=== PATIENT | female | born 1945 | race Caucasian/White ===

== ENCOUNTER 2017-11-02 17:56 | Inpatient (IN) | payer MEDICARE, SELFPAY ==
[2017-11-02 18:15] VITALS: BP 103/77; PULSE 119; RESP 20; TEMP 36.4; O2SAT 97; BMI 28.5
[2017-11-02 18:22] VITALS: BP 103/77; PULSE 111; O2SAT 98
--- NOTE | 2017-11-02 18:44 | DI.RAD.S_ITS ---
PROCEDURE: XR CHEST 1V INDICATIONS: chest pain, shortness of breath TECHNIQUE: One view of the chest was acquired. COMPARISON: [facility], CR, XR CHEST 1 VIEW, 08/10/2017, 17:53. [facility], CT, CT ANGIO CHEST PE, 08/10/2017, 19:43. [facility], CR, CHEST 1 VIEW, 01/13/2016, 21:17. FINDINGS: Surgical changes and devices: None. Lungs and pleura: Right medial basilar opacity maybe infiltrate or atelectasis. Loculated pleural effusion or pleural thickening in the right hemithorax. No pneumothorax. Mediastinum: Mediastinal contours appear normal. Heart size is normal. Bones and chest wall: No suspicious bony lesions. Overlying soft tissues appear unremarkable. IMPRESSION: Right basilar infiltrate or atelectasis. There is loculated pleural effusion or pleural thickening on the right. Dictated by: Bennie Lucas M.D. on 11/02/2017 at 19:44 Approved by: Bennie Lucas M.D. on 11/02/2017 at 19:47
[2017-11-02] MEDS: ASPIRIN 81 MG TAB 324 MG PO (19:07)
[2017-11-02] MEDS: SODIUM CHLORIDE 0.9% 1,000 ML 150 ML IV (19:07)
[2017-11-02 19:17] LABS: Add Manual Diff / Slide Review NO; Basophils Percent Auto 0.6 % (0-2); Hematocrit 39.8 % (36-46); Hemoglobin 13.7 g/dL (12.0-16.0); Lymphocytes Percent Auto 5.4 % (25-40); Mean Corpuscular HGB Conc 34.4 % (30-36); Mean Corpuscular Hemoglobin 32.9 PG (26-34); Mean Corpuscular Volume 95.6 fL (80-100); Monocytes Percent Auto 5.7 % (3-14); Neutrophils Absolute Auto 14800 /uL (3000-5900); Neutrophils Percent Auto 88.3 % (50-75); Platelet Count 144 X10^3/uL (150-400); Red Blood Cell Count 4.16 X10^6/uL (4.0-5.2); Red Cell Distribution Width 16.1 % (11.6-14.8); White Blood Cell Count 16.7 X10^3/uL (4.5-11.0)
[2017-11-02 19:33] LABS: Alanine Aminotransferase 169 IU/L (9-52); Albumin 3.7 g/dL (3.5-5.0); Albumin Globulin Ratio 1.5 (1.0-2.8); Alkaline Phosphatase 203 U/L (38-126); Aspartate Aminotransferase 142 IU/L (14-36); BUN Creatinine Ratio 33.3 (6-22); Bilirubin Total 0.8 mg/dL (0.2-1.3); Blood Urea Nitrogen 30 mg/dL (7-17); Calcium 9.4 mg/dL (8.4-10.2); Carbon Dioxide 21 mmol/L (22-32); Chloride 100 mmol/L (98-107); Creatine Kinase < 20 U/L (30-135); Estimated Glomerular Filt Rate > 60.0 mL/min (>60); Globulin 2.5 g/dL (1.7-4.1); Glucose 332 mg/dL (80-110); HEMOLYSIS 38 (0-50); Lipase 109 U/L (23-300); Potassium 4.8 mmol/L (3.4-5.1); Sodium 137 mmol/L (137-145); Total Protein 6.2 g/dL (6.3-8.2)
[2017-11-02 19:45] LABS: Troponin I 0.022 ng/mL (0.01-0.034)
[2017-11-02 19:54] VITALS: PULSE 92; RESP 25; O2SAT 98
[2017-11-02 20:26] VITALS: PULSE 78; RESP 24
--- NOTE | 2017-11-02 20:37 | ED_ITS ---
HPI - Chest Pain General Chief Complaint: Chest Pain Stated Complaint: Chest pain Time Seen by Provider: 11/02/17 18:08 Source: patient Mode of arrival: ambulatory Limitations: no limitations History of Present Illness HPI narrative: Patient has had chest tightness and weakness for the last several days. Patient's family states that she cannot get up off the toilet and she is difficult to move around, because she is so weak. Patient has a history of COPD. She and her live in a motor home that [facility], but they do have a history in [facility]. Patient states her primary care physician is there which she has not seen him in a long time. Patient denies fevers. She has had a cough. states the patient has been declining for about a month prior to the current symptoms. MD complaint: other (Chest tightness, weakness.) Onset (ago): day(s) Duration: constant Onset: other (Worse with physical effort.) Pain location: other (Entire chest) Severity: moderate Severity scale (1-10): 3 Quality: tightness Pain radiation: none Relieving factors: nothing Exacerbating factors: nothing Context: other (Progressive debility) Associated symptoms: other (No nausea, vomiting, diaphoresis, syncope, palpitations, fever, or leg swelling. Patient has chronic dyspnea, and has had a dry cough recently.) Treatments prior to arrival chest pain: none Related Data Home Medications Medication Instructions Recorded Confirmed albuterol sulfate [ProAir HFA] 1 puff INHALATION Q4-6H PRN 11/03/17 11/03/17 prednisone 5 mg PO BEDTIME 11/03/17 11/03/17 prednisone 15 mg PO BID 11/03/17 11/03/17 Previous Rx's Medication Instructions Recorded albuterol sulfate 3 ml INH Q4HP PRN #30 01/15/16 insulin aspart U-100 [Novolog 0 unit SUBCUT AC #1 device 11/07/17 Flexpen U-100 Insulin] insulin glargine [Lantus Solostar 15 unit SUBCUT BEDTIME #1 device 11/07/17 U-100 Insulin] Allergies Allergy/AdvReac Type Severity Reaction Status Date / Time avocado [AVOCADO] Allergy Intermediate VOMITING Verified 11/02/17 18:26 Penicillins [PENICILLINS] Allergy Intermediate RASH Verified 11/02/17 18:26 Sulfa (Sulfonamide Allergy Intermediate FEELING Verified 11/02/17 18:26 Antibiotics) HOT-SWEATING [SULFA (SULFONAMIDE TO ANTIBIOTICS)] FREEZING COL Review of Systems Review of Systems All systems reviewed & are unremarkable except as noted in HPI and below Constitutional Denies chills, Denies fever(s), Denies lethargy and Reports weakness Eyes Denies change in vision, Denies eye discharge, Denies irritation and Denies loss of vision ENT Ears, Nose, Mouth, and Throat: Denies change in voice, Denies neck pain and Denies sore throat Cardiovascular Denies chest pain, Denies irregular heart rhythm, Denies lightheadedness, Denies palpitations, Reports dyspnea, Denies dyspnea on exertion and Denies orthopnea Respiratory Reports cough, Reports dyspnea, Denies dyspnea on exertion and Denies wheezing Gastrointestinal Gastrointestinal: Denies abdominal pain, Denies change in bowel habits, Denies diarrhea, Denies nausea and Denies vomiting Genitourinary Denies hematuria, Denies flank pain, Denies urinary incontinence and Denies urinary urgency Musculoskeletal Denies neck pain Integumentary/Breasts Denies pruritus, Denies erythema, Denies rash and Denies wounds Neurologic Denies confusion, Denies loss of vision and Reports weakness Psychiatric Denies anxiety, Denies confusion, Denies depression, Denies homicidal ideation and Denies suicidal ideation Endocrine Denies palpitations Hematologic/Lymphatic Denies easy bruising Allergic/Immunologic Denies wheezing FORMERLY [facility], [facility] Medical History Acute and chronic respiratory failure (Acute) Generalized weakness (Acute) Pneumonia (Acute) COPD (chronic obstructive pulmonary disease) (Acute) Surgical History No pertinent past surgical history (Acute) Social History household members: spouse Smoking Status: Current every day smoker Exam Initial Vital Signs Initial Vital Signs: Vital Signs Temperature 97.6 F 11/02/17 18:15 Pulse Rate 119 H 11/02/17 18:15 Respiratory Rate 20 11/02/17 18:15 Blood Pressure 103/77 11/02/17 18:15 Pulse Oximetry 97 11/02/17 18:15 Const General: cooperative and well developed Nutritional Appearance: well nourished Orientation: alert, awake, oriented x3 and not confused Other: Patient appears generally weak, lying on the bed. [facility] Head: normocephalic and atraumatic Ears: external ears normal and TM's normal bilaterally Nose: external nose normal and No nasal discharge Face and sinus: sinuses nontender, face symmetric, no sinus tenderness and No dry mucous membranes Mouth: oral mucosae normal and moist mucous membranes Teeth and gingiva: dentition normal Throat: tonsils normal and uvula midline Eyes General: appearance normal, both eyes and all related structures Eyelids: eyelids normal Conjunctivae: conjunctivae normal Sclera: sclerae normal Pupils: PERRL EOM: EOM intact bilaterally Neck Neck: normal visual inspection, trachea midline, No lymphadenopathy, No midline deformity and No JVD Lymphatic: No lymphedema Chest Chest: normal inspection of the chest Resp Effort & Inspection: normal respiratory effort, able to speak in complete sentences, no respiratory distress and no use of accessory muscles Auscultation: no rales, no rhonchi and wheezes (A mild, diffuse.) Other: Decreased breath sounds and air movement bilaterally. Cardio Rate: regular rate Rhythm: regular rhythm Heart Sounds: no click, no gallops, no murmurs and no rubs Pulses: normal peripheral pulses GI Inspection: non-distended Palpation: soft, no hepatosplenomegaly, No guarding, No pulsatile mass and No tender Auscultation: normal bowel sounds Back/Spine/Pelvis Back: No CVA tenderness Cervical Spine: cervical ROM normal and No pain with cervical ROM Thoracic/Lumbar Spine: thoracic and lumbar spine normal to inspection Skin General: no rashes or lesions noted, No jaundice and No petechiae Neuro General: alert, oriented x3, gait normal and no focal motor deficits Speech: speech normal Extrem General: full ROM, no clubbing, cyanosis or edema, no pedal edema and no calf tenderness Psych Appearance: well kempt Mental Status: mental status grossly normal Attitude: cooperative Thought Content: normal and suicidality Judgment: judgment good Course Hospital Course: Patient appeared generally debilitated, and symptoms had been escalating for the last month. I did work the patient up, but I also discussed with the that he and the patient need to consider whether they can continue the current lifestyle of living in the house the and traveling from place to place. The patient's workup did demonstrate a small area of pneumonia. Patient was treated with antibiotics. I did arrange for her admission to the hospital, and spoke with the hospitalist on duty. Orders Ordered: Acetaminophen (Tylenol) 650 mg PO Q6HR PRN PRN Reason: As Needed for Fever/Mild Pain Last Admin: 11/07/17 23:43 Dose: 650 mg Admin: 11/07/17 12:18 Dose: 650 mg Admin: 11/05/17 22:00 Dose: 650 mg Admin: 11/05/17 09:31 Dose: 650 mg Albuterol (Ventolin) 2.5 mg INH [id number] PRN PRN Reason: Shortness Of Breath Last Admin: 11/06/17 21:52 Dose: 2.5 mg Albuterol (Ventolin Hfa) 2 puff INH Q4H PRN PRN Reason: Shortness Of Breath Or Wheezing Albuterol/Ipratropium (Duoneb) 3 ml INH [id number] FERNANDO Last Admin: 11/08/17 13:11 Dose: 3 ml Admin: 11/08/17 06:27 Dose: 3 ml Admin: 11/07/17 18:59 Dose: 3 ml Admin: 11/07/17 12:18 Dose: 3 ml Admin: 11/07/17 07:24 Dose: 3 ml Admin: 11/06/17 17:42 Dose: 3 ml Admin: 11/06/17 12:31 Dose: 3 ml Admin: 11/06/17 06:03 Dose: 3 ml Admin: 11/05/17 19:08 Dose: 3 ml Admin: 11/05/17 13:28 Dose: 3 ml Admin: 11/05/17 06:27 Dose: 3 ml Admin: 11/04/17 20:02 Dose: 3 ml Admin: 11/04/17 13:55 Dose: 3 ml Admin: 11/04/17 05:36 Dose: 3 ml Admin: 11/03/17 17:21 Dose: 3 ml Admin: 11/03/17 11:57 Dose: 3 ml Enoxaparin Sodium (Lovenox) 40 mg SUBCUT DAILY [facility] Last Admin: 11/08/17 08:10 Dose: Not Given Admin: 11/07/17 08:16 Dose: Not Given Admin: 11/06/17 09:00 Dose: Not Given Admin: 11/05/17 09:32 Dose: Not Given Admin: 11/04/17 08:16 Dose: Not Given Admin: 11/03/17 09:16 Dose: 40 mg Sodium Chloride (Normal Saline 0.9%) 1,000 mls @ 100 mls/hr IV CONT FERNANDO Last Admin: 11/06/17 07:03 Dose: 100 mls/hr Infusion: 11/06/17 06:53 Dose: 100 mls/hr Admin: 11/05/17 20:53 Dose: 100 mls/hr Infusion: 11/05/17 20:53 Dose: 100 mls/hr Admin: 11/05/17 12:54 Dose: 100 mls/hr Infusion: 11/05/17 11:26 Dose: 100 mls/hr Admin: 11/05/17 01:26 Dose: 100 mls/hr Infusion: 11/05/17 00:38 Dose: 100 mls/hr Admin: 11/04/17 14:38 Dose: 100 mls/hr Infusion: 11/04/17 14:38 Dose: 100 mls/hr Admin: 11/04/17 05:20 Dose: 100 mls/hr Infusion: 11/04/17 05:20 Dose: 100 mls/hr Admin: 11/04/17 05:19 Dose: 100 mls/hr Infusion: 11/03/17 19:16 Dose: 100 mls/hr Admin: 11/03/17 09:16 Dose: 100 mls/hr Insulin Aspart (Novolog Flexpen) 0 unit SUBCUT AC [facility]; Protocol Last Admin: 11/08/17 11:52 Dose: 2 unit Admin: 11/08/17 08:11 Dose: 1 unit Admin: 11/07/17 17:23 Dose: 2 unit Admin: 11/07/17 11:54 Dose: 4 unit Admin: 11/07/17 08:18 Dose: 2 unit Admin: 11/06/17 16:57 Dose: 3 unit Admin: 11/06/17 12:36 Dose: 2 unit Admin: 11/06/17 09:05 Dose: 2 unit Admin: 11/05/17 16:34 Dose: 3 unit Insulin Glargine (Lantus Solostar (Pen)) 15 unit SUBCUT BEDTIME [facility] Last Admin: 11/07/17 20:34 Dose: 15 unit Morphine Sulfate (Morphine) 2 mg IV Q4HR PRN PRN Reason: Pain, Moderate (4-6) Last Admin: 11/05/17 06:01 Dose: 2 mg Admin: 11/03/17 12:43 Dose: 1 mg Ondansetron HCl (Zofran Odt) 4 mg PO Q8HR PRN PRN Reason: Nausea And Vomiting Ondansetron HCl (Zofran) 4 mg IV Q8HR PRN PRN Reason: Nausea And Vomiting Pantoprazole Sodium (Protonix) 20 mg PO 0700 [facility] Last Admin: 11/08/17 06:00 Dose: Not Given Prednisone (Deltasone) 15 mg PO 0800,1600 [facility] Last Admin: 11/08/17 08:11 Dose: 15 mg Admin: 11/07/17 16:11 Dose: 15 mg Prednisone (Deltasone) 5 mg PO BEDTIME [facility] Last Admin: 11/07/17 20:33 Dose: 5 mg Discontinued Medications Albuterol (Ventolin) 2.5 mg INH Q4H PRN PRN Reason: Shortness Of Breath Or Wheezing Aspirin (Aspirin Chew) 324 mg PO NOW ONE Stop: 11/02/17 18:45 Last Admin: 11/02/17 19:07 Dose: 324 mg Al Hydrox/Mg Hydrox/Simethicone 20 ml/ Lidocaine HCl 15 ml 0 ml PO NOW ONE Stop: 11/03/17 03:09 Last Admin: 11/03/17 03:45 Dose: 35 ml Hydromorphone HCl (Dilaudid) 0.5 mg IV NOW ONE Stop: 11/03/17 03:09 Last Admin: 11/03/17 03:44 Dose: 0.5 mg Sodium Chloride (Normal Saline 0.9%) 1,000 mls @ 150 mls/hr IV CONT [facility] Last Infusion: 11/03/17 05:38 Dose: 0 mls/hr Admin: 11/02/17 19:07 Dose: 150 mls/hr Sodium Chloride (Normal Saline 0.9%) 1,000 mls @ 1,000 mls/hr IV BOLUS ONE Stop: 11/02/17 22:28 Last Admin: 11/03/17 05:27 Dose: Not Given Ceftriaxone Sodium/Dextrose (Rocephin) 2 gm in 50 mls @ 100 mls/hr IV NOW ONE Stop: 11/03/17 04:44 Last Infusion: 11/03/17 05:25 Dose: 100 mls/hr Admin: 11/03/17 04:27 Dose: 100 mls/hr Azithromycin 500 mg/ Dextrose 250 mls @ 250 mls/hr IV NOW ONE Stop: 11/03/17 04:16 Last Infusion: 11/03/17 07:50 Dose: 0 mls/hr Admin: 11/03/17 06:50 Dose: 250 mls/hr Insulin Aspart (Novolog Flexpen) [address] [facility]; Protocol Last Admin: 11/06/17 17:58 Dose: Not Given Admin: 11/05/17 12:50 Dose: 1 unit Admin: 11/05/17 09:32 Dose: 1 unit Admin: 11/04/17 17:24 Dose: 1 unit Admin: 11/04/17 14:34 Dose: Not Given Admin: 11/04/17 08:16 Dose: 1 unit Admin: 11/03/17 17:35 Dose: 1 unit Admin: 11/03/17 12:35 Dose: 1 unit Insulin Human NPH (Humulin N) 15 unit SUBCUT NOW ONE Stop: 11/07/17 14:06 Last Admin: 11/07/17 14:26 Dose: 15 unit Ondansetron HCl (Zofran) 4 mg IV Q4HR PRN PRN Reason: Nausea And Vomiting Pantoprazole Sodium (Protonix) 40 mg IV DAILY [facility] Last Admin: 11/07/17 08:18 Dose: Not Given Admin: 11/06/17 09:00 Dose: Not Given Admin: 11/05/17 09:32 Dose: 40 mg Admin: 11/04/17 08:16 Dose: 40 mg Admin: 11/03/17 15:31 Dose: 40 mg Prednisone (Deltasone) 15 mg PO BID [facility] Last Admin: 11/06/17 09:00 Dose: 15 mg Admin: 11/05/17 20:03 Dose: 15 mg Admin: 11/05/17 09:31 Dose: 15 mg Admin: 11/04/17 20:08 Dose: 15 mg Prednisone (Deltasone) 5 mg PO BEDTIME [facility] Last Admin: 11/05/17 20:03 Dose: 5 mg Admin: 11/04/17 20:08 Dose: 5 mg Prednisone (Deltasone) 30 mg PO DAILY [facility] Last Admin: 11/07/17 08:15 Dose: 30 mg Prednisone (Deltasone) 5 mg PO DAILY ONE Stop: 11/07/17 21:23 Last Admin: 11/06/17 21:31 Dose: 5 mg Prednisone (Deltasone) 5 mg PO DAILY ONE Stop: 11/06/17 21:23 Last Admin: 11/06/17 22:15 Dose: Not Given Vital Signs - 8 hr 11/08/17 08:00 11/08/17 08:31 11/08/17 12:00 Temperature 97.3 F L 98.6 F Pulse Rate 98 H 86 Respiratory Rate 16 20 Blood Pressure 146/77 H 151/68 H Pulse Oximetry 96 96 99 11/08/17 13:11 Temperature Pulse Rate 87 Respiratory Rate 16 Blood Pressure Pulse Oximetry 98 MDM - Chest Pain Lab Data Result diagrams: 11/05/17 09:53 11/07/17 05:43 Lab Results 11/02/17 11/02/17 11/03/17 Range/Units 18:40 18:40 03:54 WBC 16.7 H (4.5-11.0) X10^3/uL RBC 4.16 (4.0-5.2) X10^6/uL Hgb 13.7 (12.0-16.0) g/dL Hct 39.8 (36-46) % MCV 95.6 (80-100) fL MCH 32.9 (26-34) PG MCHC 34.4 (30-36) % RDW 16.1 H (11.6-14.8) % Plt Count 144 L (150-400) X10^3/uL Neut % (Auto) 88.3 H (50-75) % Lymph % (Auto) 5.4 L (25-40) % [place] % (Auto) 5.7 (3-14) % Eos % (Auto) 0.0 L (2-4) % Baso % (Auto) 0.6 (0-2) % Neut # (Auto) 89973 H (0799-1035) /uL Total Counted Seg Neutrophils % (38-70) % Band Neutrophils % (3-7) % Lymphocytes % (Manual) (25-45) % Atypical Lymphs % ( - 0) % Monocytes % (Manual) (2-11) % Neutrophils # (Manual) (0654-1273) /uL RBC Morphology PT (10.1-12.7) SECONDS INR (0.9-1.3) Sodium 137 (137-145) mmol/L Potassium 4.8 (3.4-5.1) mmol/L Chloride 100 (98-107) mmol/L Carbon Dioxide 21 L (22-32) mmol/L BUN 30 H (7-17) mg/dL Creatinine 0.90 (0.52-1.04) mg/dL Estimated GFR > 60.0 (>60) mL/min BUN/Creatinine Ratio 33.3 H (6-22) Glucose 332 H (80-110) mg/dL Hemoglobin A1c (4.0-6.0) % Calcium 9.4 (8.4-10.2) mg/dL Total Bilirubin 0.8 (0.2-1.3) mg/dL AST 142 H (14-36) IU/L ALT 169 H (9-52) IU/L Alkaline Phosphatase 203 H (38-126) U/L Total Creatine Kinase < 20 L (30-135) U/L CK-MB (CK-2) TNP Troponin I 0.022 (0.01-0.034) ng/mL Total Protein 6.2 L (6.3-8.2) g/dL Albumin 3.7 (3.5-5.0) g/dL Globulin 2.5 (1.7-4.1) g/dL Albumin/Globulin Ratio 1.5 (1.0-2.8) Triglycerides (35-150) mg/dL Cholesterol (140-199) mg/dL LDL Cholesterol, Calc (<100) mg/dL HDL Cholesterol (40-60) mg/dL Lipase 109 (23-300) U/L Urine Color Yellow Urine Appearance Clear Urine pH 5.0 (4.5-8.0) Ur Specific [place] 1.015 (1.000-1.035) Urine Protein Negative (Negative) Urine Glucose (UA) 1+ (Normal) g/dL Urine Ketones Trace H (NEGATIVE) Urine Occult Blood Negative (Negative) Urine Nitrate Negative (Negative) Urine Bilirubin Negative (NEGATIVE) Urine Urobilinogen 0.2 (0.2) E.U./dL Ur Leukocyte Esterase Negative (NEGATIVE) Urine RBC None seen (0-5/HPF) Urine WBC None seen (0-5/HPF) Ur Squamous Epith Cells 1-5 /hpf Urine Bacteria Few (2-10) H (None) Ur Culture Indicated? Cult not indicated Micro UA Comment Not Reportable Hep Bs Antigen (NEGATIVE) s/c Hepatitis C Antibody (NEGATIVE) s/c 11/03/17 11/04/17 11/05/17 Range/Units Unknown 08:13 09:53 WBC 11.4 H (4.5-11.0) X10^3/uL RBC 3.30 L (4.0-5.2) X10^6/uL Hgb 10.9 L (12.0-16.0) g/dL Hct 31.2 L (36-46) % MCV 94.4 (80-100) fL MCH 33.0 (26-34) PG MCHC 35.0 (30-36) % RDW 15.8 H (11.6-14.8) % Plt Count 97 L (150-400) X10^3/uL Neut % (Auto) Not Reportable (50-75) % Lymph % (Auto) Not Reportable (25-40) % [place] % (Auto) Not Reportable (3-14) % Eos % (Auto) Not Reportable (2-4) % Baso % (Auto) Not Reportable (0-2) % Neut # (Auto) (0150-5927) /uL Total Counted 100 Seg Neutrophils % 67.0 (38-70) % Band Neutrophils % 14.0 H (3-7) % Lymphocytes % (Manual) 10.0 L (25-45) % Atypical Lymphs % 4.0 H ( - 0) % Monocytes % (Manual) 5.0 (2-11) % Neutrophils # (Manual) 9234 H (1528-7162) /uL RBC Morphology Normal morphology PT (10.1-12.7) SECONDS INR (0.9-1.3) Sodium (137-145) mmol/L Potassium (3.4-5.1) mmol/L Chloride (98-107) mmol/L Carbon Dioxide (22-32) mmol/L BUN (7-17) mg/dL Creatinine (0.52-1.04) mg/dL Estimated GFR (>60) mL/min BUN/Creatinine Ratio (6-22) Glucose (80-110) mg/dL Hemoglobin A1c 8.0 H (4.0-6.0) % Calcium (8.4-10.2) mg/dL Total Bilirubin (0.2-1.3) mg/dL AST (14-36) IU/L ALT (9-52) IU/L Alkaline Phosphatase (38-126) U/L Total Creatine Kinase 54 (30-135) U/L CK-MB (CK-2) Troponin I 0.042 H (0.01-0.034) ng/mL Total Protein (6.3-8.2) g/dL Albumin (3.5-5.0) g/dL Globulin (1.7-4.1) g/dL Albumin/Globulin Ratio (1.0-2.8) Triglycerides (35-150) mg/dL Cholesterol (140-199) mg/dL LDL Cholesterol, Calc (<100) mg/dL HDL Cholesterol (40-60) mg/dL Lipase (23-300) U/L Urine Color Urine Appearance Urine pH (4.5-8.0) Ur Specific [place] (1.000-1.035) Urine Protein (Negative) Urine Glucose (UA) (Normal) g/dL Urine Ketones (NEGATIVE) Urine Occult Blood (Negative) Urine Nitrate (Negative) Urine Bilirubin (NEGATIVE) Urine Urobilinogen (0.2) E.U./dL Ur Leukocyte Esterase (NEGATIVE) Urine RBC (0-5/HPF) Urine WBC (0-5/HPF) Ur Squamous Epith Cells Urine Bacteria (None) Ur Culture Indicated? Micro UA Comment Hep Bs Antigen (NEGATIVE) s/c Hepatitis C Antibody (NEGATIVE) s/c 11/05/17 11/05/17 11/06/17 Range/Units 09:53 11:24 06:08 WBC (4.5-11.0) X10^3/uL RBC (4.0-5.2) X10^6/uL Hgb (12.0-16.0) g/dL Hct (36-46) % MCV (80-100) fL MCH (26-34) PG MCHC (30-36) % RDW (11.6-14.8) % Plt Count (150-400) X10^3/uL Neut % (Auto) (50-75) % Lymph % (Auto) (25-40) % [place] % (Auto) (3-14) % Eos % (Auto) (2-4) % Baso % (Auto) (0-2) % Neut # (Auto) (3382-7687) /uL Total Counted Seg Neutrophils % (38-70) % Band Neutrophils % (3-7) % Lymphocytes % (Manual) (25-45) % Atypical Lymphs % ( - 0) % Monocytes % (Manual) (2-11) % Neutrophils # (Manual) (5990-0494) /uL RBC Morphology PT (10.1-12.7) SECONDS INR (0.9-1.3) Sodium 137 140 (137-145) mmol/L Potassium 3.9 4.4 (3.4-5.1) mmol/L Chloride 109 H 110 H (98-107) mmol/L Carbon Dioxide 22 23 (22-32) mmol/L BUN 4 L 6 L (7-17) mg/dL Creatinine 0.40 L 0.50 L (0.52-1.04) mg/dL Estimated GFR > 60.0 > 60.0 (>60) mL/min BUN/Creatinine Ratio 10.0 12.0 (6-22) Glucose 220 H D 247 H (80-110) mg/dL Hemoglobin A1c (4.0-6.0) % Calcium 8.2 L 8.3 L (8.4-10.2) mg/dL Total Bilirubin 0.8 0.5 (0.2-1.3) mg/dL AST 44 H 38 H (14-36) IU/L ALT 87 H 80 H (9-52) IU/L Alkaline Phosphatase 149 H 161 H (38-126) U/L Total Creatine Kinase (30-135) U/L CK-MB (CK-2) Troponin I (0.01-0.034) ng/mL Total Protein 5.3 L 5.2 L (6.3-8.2) g/dL Albumin 3.0 L 3.0 L (3.5-5.0) g/dL Globulin 2.3 2.2 (1.7-4.1) g/dL Albumin/Globulin Ratio 1.3 1.4 (1.0-2.8) Triglycerides 295 H (35-150) mg/dL Cholesterol 233 H (140-199) mg/dL LDL Cholesterol, Calc 129 H (<100) mg/dL HDL Cholesterol 45 (40-60) mg/dL Lipase (23-300) U/L Urine Color Urine Appearance Urine pH (4.5-8.0) Ur Specific [place] (1.000-1.035) Urine Protein (Negative) Urine Glucose (UA) (Normal) g/dL Urine Ketones (NEGATIVE) Urine Occult Blood (Negative) Urine Nitrate (Negative) Urine Bilirubin (NEGATIVE) Urine Urobilinogen (0.2) E.U./dL Ur Leukocyte Esterase (NEGATIVE) Urine RBC (0-5/HPF) Urine WBC (0-5/HPF) Ur Squamous Epith Cells Urine Bacteria (None) Ur Culture Indicated? Micro UA Comment Hep Bs Antigen Negative (NEGATIVE) s/c Hepatitis C Antibody Negative (NEGATIVE) s/c 11/07/17 11/07/17 Range/Units 05:43 05:43 WBC (4.5-11.0) X10^3/uL RBC (4.0-5.2) X10^6/uL Hgb (12.0-16.0) g/dL Hct (36-46) % MCV (80-100) fL MCH (26-34) PG MCHC (30-36) % RDW (11.6-14.8) % Plt Count (150-400) X10^3/uL Neut % (Auto) (50-75) % Lymph % (Auto) (25-40) % [place] % (Auto) (3-14) % Eos % (Auto) (2-4) % Baso % (Auto) (0-2) % Neut # (Auto) (4182-5122) /uL Total Counted Seg Neutrophils % (38-70) % Band Neutrophils % (3-7) % Lymphocytes % (Manual) (25-45) % Atypical Lymphs % ( - 0) % Monocytes % (Manual) (2-11) % Neutrophils # (Manual) (2392-3457) /uL RBC Morphology PT 9.9 L (10.1-12.7) SECONDS INR 0.9 (0.9-1.3) Sodium 141 (137-145) mmol/L Potassium 3.8 (3.4-5.1) mmol/L Chloride 109 H (98-107) mmol/L Carbon Dioxide 23 (22-32) mmol/L BUN 8 (7-17) mg/dL Creatinine 0.40 L (0.52-1.04) mg/dL Estimated GFR > 60.0 (>60) mL/min BUN/Creatinine Ratio 20.0 (6-22) Glucose 234 H (80-110) mg/dL Hemoglobin A1c (4.0-6.0) % Calcium 8.4 (8.4-10.2) mg/dL Total Bilirubin 0.4 (0.2-1.3) mg/dL AST 52 H (14-36) IU/L ALT 72 H (9-52) IU/L Alkaline Phosphatase 186 H (38-126) U/L Total Creatine Kinase (30-135) U/L CK-MB (CK-2) Troponin I (0.01-0.034) ng/mL Total Protein 5.0 L (6.3-8.2) g/dL Albumin 2.9 L (3.5-5.0) g/dL Globulin 2.1 (1.7-4.1) g/dL Albumin/Globulin Ratio 1.4 (1.0-2.8) Triglycerides (35-150) mg/dL Cholesterol (140-199) mg/dL LDL Cholesterol, Calc (<100) mg/dL HDL Cholesterol (40-60) mg/dL Lipase (23-300) U/L Urine Color Urine Appearance Urine pH (4.5-8.0) Ur Specific [place] (1.000-1.035) Urine Protein (Negative) Urine Glucose (UA) (Normal) g/dL Urine Ketones (NEGATIVE) Urine Occult Blood (Negative) Urine Nitrate (Negative) Urine Bilirubin (NEGATIVE) Urine Urobilinogen (0.2) E.U./dL Ur Leukocyte Esterase (NEGATIVE) Urine RBC (0-5/HPF) Urine WBC (0-5/HPF) Ur Squamous Epith Cells Urine Bacteria (None) Ur Culture Indicated? Micro UA Comment Hep Bs Antigen (NEGATIVE) s/c Hepatitis C Antibody (NEGATIVE) s/c Point of Care Testing Glucose POC 246 Urine Dip Bedside Urine Glucose 500 mg/dl Bedside Urine Bilirubin - Negative Bedside Urine Ketone +/- 5 Urine Specific [place] 1.015 Bedside Urine Occult Blood - Negative Bedside Urine pH 5.5 Bedside Urine Protein +/- 15 Bedside Urine Urobilinogen - Negative Bedside Urine Nitrite - Negative Bedside Urine Leukocytes - Negative Esterase Imaging Data Chest x-ray: Radiologist's impression: PROCEDURE: XR CHEST 1V INDICATIONS: chest pain, shortness of breath TECHNIQUE: One view of the chest was acquired. COMPARISON: [facility], CR, XR CHEST 1 VIEW, 08/10/2017, 17:53. [facility], CT, CT ANGIO CHEST PE, 08/10/2017, 19:43. [facility], CR, CHEST 1 VIEW, 01/13/2016, 21:17. FINDINGS: Surgical changes and devices: None. Lungs and pleura: Right medial basilar opacity maybe infiltrate or atelectasis. Loculated pleural effusion or pleural thickening in the right hemithorax. No pneumothorax. Mediastinum: Mediastinal contours appear normal. Heart size is normal. Bones and chest wall: No suspicious bony lesions. Overlying soft tissues appear unremarkable. IMPRESSION: Right basilar infiltrate or atelectasis. There is loculated pleural effusion or pleural thickening on the right. Dictated by: Bennie Lucas M.D. on 11/02/2017 at 19:44 Approved by: Bennie Lucas M.D. on 11/02/2017 at 19:47 CT scan - abdomen: Radiologist's impression: PROCEDURE: CT ABDOMEN PELVIS W CON INDICATIONS: abdominal pain, leukocytosis TECHNIQUE: After the administration of intravenous contrast, 5 mm thick sections acquired from the diaphragm to the symphysis. 5 mm coronal and sagittal reformats were acquired. For radiation dose reduction, the following was used: automated exposure control, adjustment of mA and/or kV according to patient size. COMPARISON: [facility], CT, CT ABDOMEN PELVIS WITH CONTRAST, 2017, 19:43. FINDINGS: Image quality: Excellent. ABDOMEN: Lung bases: Lung bases are clear. Heart size is normal. Solid organs: Liver is mildly enlarged. Diffuse fatty infiltration of the liver. Gallbladder is within normal limits. Biliary system is non dilated. Pancreas enhances normally. Spleen is normal in size and enhancement. Multiple punctate calcifications noted in the spleen compatible sequela prior granulomatous disease. No adrenal nodules. Kidneys demonstrate normal size and enhancement, without hydronephrosis. 3.2 cm right renal cysts. 7 mm left renal cysts. Peritoneum and bowel: Bowel loops demonstrate normal wall thickness and caliber. Scattered colonic diverticuli without evidence of diverticulitis. No free fluid or air. The appendix is normal. Nodes and vessels: No retroperitoneal or mesenteric adenopathy by size criteria. Aorta and inferior vena cava are normal in size. Scattered atherosclerotic calcifications involving the abdominal and pelvic vasculature. Miscellaneous: No ventral hernias. PELVIS: Genitourinary: Bladder wall thickness is normal. Uterus is absent. Adnexa are not definitely visualized. Miscellaneous: No inguinal hernias or adenopathy. Bones: No suspicious bony lesions. Chronic appearing L2, L3, L4 and L5 compression deformities are stable compared to 08/10/2017.. No acute vertebral body compression fractures. Spine degenerative disc disease and facet arthropathy. IMPRESSION: 1. No acute disease process. 2. Colonic diverticulosis without evidence of diverticulitis. 3. Mild hepatomegaly with hepatic steatosis. 4. The appendix is normal. I. No free fluid or free air. 6. No dilated loops of bowel. Dictated by: Chiquita Buenrostro MD, PhD on 11/03/2017 at 8:25 Approved by: Chiquita Buenrostro MD, PhD on 11/03/2017 at 8:32 ECG Data Attestation: I personally reviewed and interpreted this ECG as follows: (See below) Interpretation: Twelve lead EKG performed as follows on November 02, 2017 at 6: 09 p.m.: Regular ventricular rhythm with a rate of 111 beats per minute IL interval 133 milliseconds QRS duration 98 milliseconds QTC interval 385 milliseconds Normal axis Interpretation: Sinus tachycardia, possible left atrial enlargement; abnormal EKG Interpreted by ED MD MDM Narrative Medical decision making narrative: Case discussed with Dr. Hicks, hospitalist regional loss prevention manager. Discharge Plan Departure Patient Disposition: Admitted As Inpatient Clinical Impression: Generalized weakness, Pneumonia, COPD (chronic obstructive pulmonary disease) Discharge Date/Time: 11/03/17 06:05 Interventions: ED Discharge Assessment Last Done: 11/03/17 06:05 Admit Date/Time: 11/03/17 05:35 Admit Provider: Primitivo Fairbanks
[2017-11-02 21:19] VITALS: PULSE 84; RESP 21; O2SAT 97
--- NOTE | 2017-11-02 21:19 | PC.NURSE ---
Pt refused blood pressure stating it hurts to much and I can't stand it
--- NOTE | 2017-11-02 21:40 | DI.CT.S_ITS ---
PROCEDURE: CT ABDOMEN PELVIS W CON INDICATIONS: abdominal pain, leukocytosis TECHNIQUE: After the administration of intravenous contrast, 5 mm thick sections acquired from the diaphragm to the symphysis. 5 mm coronal and sagittal reformats were acquired. For radiation dose reduction, the following was used: automated exposure control, adjustment of mA and/or kV according to patient size. COMPARISON: [facility], CT, CT ABDOMEN PELVIS WITH CONTRAST, 08/10/2017, 19:43. FINDINGS: Image quality: Excellent. ABDOMEN: Lung bases: Lung bases are clear. Heart size is normal. Solid organs: Liver is mildly enlarged. Diffuse fatty infiltration of the liver. Gallbladder is within normal limits. Biliary system is non dilated. Pancreas enhances normally. Spleen is normal in size and enhancement. Multiple punctate calcifications noted in the spleen compatible sequela prior granulomatous disease. No adrenal nodules. Kidneys demonstrate normal size and enhancement, without hydronephrosis. 3.2 cm right renal cysts. 7 mm left renal cysts. Peritoneum and bowel: Bowel loops demonstrate normal wall thickness and caliber. Scattered colonic diverticuli without evidence of diverticulitis. No free fluid or air. The appendix is normal. Nodes and vessels: No retroperitoneal or mesenteric adenopathy by size criteria. Aorta and inferior vena cava are normal in size. Scattered atherosclerotic calcifications involving the abdominal and pelvic vasculature. Miscellaneous: No ventral hernias. PELVIS: Genitourinary: Bladder wall thickness is normal. Uterus is absent. Adnexa are not definitely visualized. Miscellaneous: No inguinal hernias or adenopathy. Bones: No suspicious bony lesions. Chronic appearing L2, L3, L4 and L5 compression deformities are stable compared to 08/10/2017.. No acute vertebral body compression fractures. Spine degenerative disc disease and facet arthropathy. IMPRESSION: 1. No acute disease process. 2. Colonic diverticulosis without evidence of diverticulitis. 3. Mild hepatomegaly with hepatic steatosis. 4. The appendix is normal. I. No free fluid or free air. 6. No dilated loops of bowel. Dictated by: Chiquita Buenrostro MD, PhD on 11/03/2017 at 8:25 Approved by: Chiquita Buenrostro MD, PhD on 11/03/2017 at 8:32
[2017-11-02 21:49] VITALS: PULSE 83; RESP 18; O2SAT 19
[2017-11-03] VITALS (11 sets, daily range): BP systolic 115–146; BP diastolic 56–91; PULSE 60–100; RESP 14–20; TEMP 36.1–36.9; O2SAT 93–100; BMI 28.5
--- NOTE | 2017-11-03 | DI.US.S_ITS ---
PROCEDURE: US ABDOMEN LIMITED INDICATIONS: patient with abnormal liver enzymes. TECHNIQUE: Real-time focused scanning was performed of the abdomen, with image documentation. COMPARISON: [facility], CT, CT ABDOMEN PELVIS W CON, 11/02/2017, 22:09. FINDINGS: The liver appears increased in size, yet is not actually measured on these images The liver demonstrates generalized increased echogenicity. This decreases ultrasound sensitivity for detection of hepatic masses. However, no masses are seen. The biliary ducts are not seen. No findings of gallstones or sludge are seen. The gallbladder wall is not thickened, measuring 3 mm or less. No specific pericholecystic fluid is seen. The sonographic Marquez sign is negative. IMPRESSION: Prominent, fatty liver. Gallbladder within normal limits. Dictated by: Zohaib Guerra M.D. on 11/03/2017 at 10:03 Approved by: Zohaib Guerra M.D. on 11/03/2017 at 10:05
--- NOTE | 2017-11-03 | DI.CT.S_ITS ---
PROCEDURE: CT CHEST W CON INDICATIONS: concern for lung ca on right and elevated liver enzymes. TECHNIQUE: After the administration of intravenous contrast, 5 mm thick sections acquired from the pulmonary apices to the posterior costophrenic angles. 7 mm thick coronal and sagittal MIP reformats were acquired. For radiation dose reduction, the following was used: automated exposure control, adjustment of mA and/or kV according to patient size. COMPARISON: [facility], CT, CT ANGIO CHEST PE, 08/10/2017, 19:43. [facility], CR, XR CHEST 1V, 11/02/2017, 18:55. [facility], CT, CT ABDOMEN PELVIS W CON, 11/02/2017, 22:09. FINDINGS: Image quality: Excellent. Lungs and pleura: In areas of the lungs bilaterally previously normal on CT pulmonary angiogram 08/10/17 atelectatic bands have developed, bilaterally. This is greater on the right than the left with elevation of the minor fissure cephalad and mild mediastinal shift from left to right. Central airway obstruction by mass is not associated, however. Mild bronchial wall thickening, however, is therefore bronchitis is the likely cause. No pleural effusions or pneumothorax. Central and peripheral airways are patent and normal in caliber. Mediastinum: Heart size is normal. No pericardial effusion. No mediastinal or hilar adenopathy by size criteria. Thoracic aorta and central pulmonary arteries are normal in size. Esophagus is normal in caliber. No hiatal hernia. Bones and chest wall: No suspicious bony lesions. No vertebral body compression fractures. No axillary or supraclavicular adenopathy by size criteria. Thyroid gland is much better visualized than on the prior CT scan from July of this year into the unenhanced phase of contrast enhancement through the thyroid gland in the CT pulmonary angiogram study. Current study shows several small nodular radiodensities bilaterally and largest at the midline (measuring 11 mm), and differentiation between a cyst versus solid is not possible by this study. Abdomen: Visualized upper abdominal solid organs appear normal except for the previously identified prominent fatty infiltration throughout the liver. Upper abdominal bowel loops are normal in caliber. IMPRESSION: A malignant appearing mass is not seen within the lung parenchyma, but there is a finding of bands of atelectasis involving the upper lobe lung parenchyma greater on the right than the left, without bronchial occlusion by mass. Rather, bronchitis with bronchial wall thickening appears present in those areas, greater on the right than the left. There is volume loss on the right with secondary elevation of the minor fissure cephalad, and also mild mediastinal shift from left to right. A second significant finding is the presence of pronounced fatty infiltration throughout the liver. This was previously present. A third finding is presence of small and moderate sized high low dense structures within the thyroid gland bilaterally, several, which would require thyroid ultrasound to differentiate between cystic versus solid etiology. Elective followup thyroid ultrasound is recommended. Dictated by: Moises Velasquez M.D. on 11/03/2017 at 9:31 Approved by: Moises Velasquez M.D. on 11/03/2017 at 9:47
[2017-11-03] MEDS: HYDROMORPHONE 1 MG INJ 0.5 MG IV (03:44)
[2017-11-03] MEDS: MAG HYDROX/ALUMINUM/SIMETH SUS 20 ML, LIDOCAINE VISCOUS 2% 15 ML PO (03:45)
[2017-11-03 04:23] LABS: RBC Urine None Seen (0-5/HPF); WBC Urine None Seen (0-5/HPF)
[2017-11-03 04:26] LABS: Appearance Urine UA CLEAR; Bilirubin Urine UA NEGATIVE (NEGATIVE); Color Urine UA YELLOW; Glucose Urine UA 1+ g/dL (Normal); Ketones Urine UA TRACE (NEGATIVE); Leukocyte Esterase Urine UA NEGATIVE (NEGATIVE); Nitrite Urine UA Negative (Negative); Occult Blood Urine UA NEGATIVE (Negative); Protein Urine UA NEGATIVE (Negative); Specific Gravity Urine UA 1.015 (1.000-1.035); Urobilinogen Urine UA 0.2 E.U./dL (0.2)
[2017-11-03] MEDS: CEFTRIAXONE 2 GM/50 ML FROZ.PIGGY IV (04:27)
[2017-11-03 04:38] LABS: Squamous Epithelial Cell Urine 1-5 /HPF
[2017-11-03 04:39] LABS: Bacteria Urine Few (2-10); Culture Indicated Urine Cult Not Indicated
[2017-11-03] MEDS: AZITHROMYCIN 500 MG in DEXTROSE 5% IN WATER 250 ML IV (06:50)
--- NOTE | 2017-11-03 07:04 | PC.NURSE ---
0615 Pt admitted to Room 211. Pt denies pain. States she has been weak for several weeks and coughing. Pt states she has been falling at home. Pt oriented to medications, room, bedside shift report, and call light. Pt requested to call for any assistance. Initial transfer orders from ED with low sodium diet and pt consumed one- half sandwich. Dr. Hicks notified that currently we have no telemetry monitors, so patient is not currently on telemetry.
--- NOTE | 2017-11-03 08:55 | PM.HP.1 ---
History of Present Illness Date Patient Seen: 11/03/17 Time Patient Seen: 05:55 Chief complaint: Chest pain Narrative: Patient is a 72 years of age female who notes a continued and somewhat progressive shortness of breath over the past several weeks. Patient also notes associated nausea without vomiting. No fever noted by patient. No alleviating nor precipitating factors apparent. No chest pain. Past history includes history of COPD with continued smoker addiction. Patient on chronic steroid therapy which certainly dampens her immune system function and increases her risk for infection. Patient notes last episode of pneumonia approximately a month ago she was admitted to [facility] for treatment. Patient History Comment: PAST MEDICAL HISTORY COPD AND CONTINUED SMOKER CHRONIC STEROID THERAPY DIABETES NOTED BORDERLINE ACCORDING TO PATIENT ESSENTIAL HYPERTENSION NO HISTORY OF THE FOLLOWING: THYROID DISORDER, HYPERLIPIDEMIA, DVT OR PULMONARY EMBOLISM, CANCER Family & Social History Social History: household members spouse Safety & Behavioral: Feels Safe in Current Yes Environment Suicidal Ideation Description None Suicide Plan Description No Plan Tobacco & Substance use: Tobacco type cigarettes Smoking Status Current every day smoker Smoking packs per day 0 alcohol intake frequency 0-2 drinks per day Substance Use Type does not use Comment: SOCIAL HISTORY PATIENT IS SHE IS A CONTINUED SMOKER SURGICAL HISTORY PARTIAL HYSTERECTOMY YEARS AGO FAMILY HISTORY NO CANCER Meds Home Medications Medication Instructions Recorded Confirmed Type albuterol sulfate 3 ml INH Q4HP PRN #30 01/15/16 11/03/17 Rx albuterol sulfate [Ventolin HFA] 2 puff INH Q4HP PRN #5 ea 01/15/16 11/03/17 Rx albuterol sulfate [ProAir HFA] 1 puff INHALATION Q4-6H PRN 11/03/17 11/03/17 History prednisone 5 mg PO BEDTIME 11/03/17 11/03/17 History prednisone 15 mg PO BID 11/03/17 11/03/17 History Allergies Allergy/AdvReac Type Severity Reaction Status Date / Time avocado [AVOCADO] Allergy Intermediate VOMITING Verified 11/02/17 18:26 Penicillins [PENICILLINS] Allergy Intermediate RASH Verified 11/02/17 18:26 Sulfa (Sulfonamide Allergy Intermediate FEELING Verified 11/02/17 18:26 Antibiotics) HOT-SWEATING [SULFA (SULFONAMIDE TO ANTIBIOTICS)] FREEZING COL Review of Systems Review of Systems TEN POINT SYSTEM REVIEWED WITH PATIENT WAS NEGATIVE EXCEPT FOR THE SYMPTOMS DESCRIBED IN HPI PATIENT NOTES PROGRESSIVE SHORTNESS OF BREATH OVER THE PAST SEVERAL WEEKS. NO FEVER. PATIENT DOES NOTE NAUSEA WITHOUT VOMITING Exam Vital Signs (past 8 hours): - 11/03/17 04:14 11/03/17 06:00 11/03/17 08:01 Temperature 97.4 F L 97.3 F L Pulse Rate 86 98 H 99 H Respiratory Rate 14 20 16 Blood Pressure 136/70 122/91 H Blood Pressure [Left Arm] 132/61 Pulse Oximetry 100 98 97 Oxygen Delivery Method Room Air Oxygen Flow Rate 0 Narrative Exam Narrative: GENERAL APPEARANCE AWAKE AND ALERT NO APPARENT DISTRESS AT REST PSYCHIATRIC WELL ORIENTED TO TIME PLACE PERSON MOOD AND AFFECT IS APPROPRIATE SKIN NO RASHES OR LESIONS GOOD TURGOR NONJAUNDICED EYES PUPILS ARE EQUAL ROUND AND REACTIVE TO LIGHT EARS NOSE AND THROAT HEARING GROSSLY INTACT NOSE SEPTUM MIDLINE NO BLEEDING NO OROPHARYNGEAL LESIONS LYMPHATICS NO LYMPHADENOPATHY TO NECK OR AXILLA RESPIRATORY FAIR BREATH SOUNDS NOTED. NO SIGNIFICANT CRACKLES OR WHEEZES NOTED CARDIOVASCULAR REGULAR RATE RHYTHM NO MURMURS PMI NONDISPLACED PULSES +3 TO EXTREMITIES GASTROINTESTINAL NO SIGNIFICANT TENDERNESS TO PALPATION POSITIVE BOWEL SOUNDS ARE NOTED NO GUARDING NO BRUITS NO ORGANOMEGALY MUSCULOSKELETAL STRENGTH 5/5 NO CLUBBING IS NOTED RANGE OF MOTION APPEARS NORMAL NEUROLOGIC NO FOCAL NEUROLOGIC CHANGES CRANIAL NERVES 2-12 GROSSLY INTACT Objective Labs Result Diagrams: 11/02/17 18:40 11/02/17 18:40 Labs: Laboratory Results - last 24 hr 11/02/17 11/02/17 11/03/17 18:40 18:40 03:54 WBC 16.7 H RBC 4.16 Hgb 13.7 Hct 39.8 MCV 95.6 MCH 32.9 MCHC 34.4 RDW 16.1 H Plt Count 144 L Neut % (Auto) 88.3 H Lymph % (Auto) 5.4 L [place] % (Auto) 5.7 Eos % (Auto) 0.0 L Baso % (Auto) 0.6 Neut # (Auto) 33109 H Sodium 137 Potassium 4.8 Chloride 100 Carbon Dioxide 21 L BUN 30 H Creatinine 0.90 Estimated GFR > 60.0 BUN/Creatinine Ratio 33.3 H Glucose 332 H Calcium 9.4 Total Bilirubin 0.8 AST 142 H ALT 169 H Alkaline Phosphatase 203 H Total Creatine Kinase < 20 L CK-MB (CK-2) TNP Troponin I 0.022 Total Protein 6.2 L Albumin 3.7 Globulin 2.5 Albumin/Globulin Ratio 1.5 Lipase 109 Urine Color Yellow Urine Appearance Clear Urine pH 5.0 Ur Specific [place] 1.015 Urine Protein Negative Urine Glucose (UA) 1+ Urine Ketones Trace H Urine Occult Blood Negative Urine Nitrate Negative Urine Bilirubin Negative Urine Urobilinogen 0.2 Ur Leukocyte Esterase Negative Urine RBC None seen Urine WBC None seen Ur Squamous Epith Cells 1-5 /hpf Urine Bacteria Few (2-10) H Ur Culture Indicated? Cult not indicated Micro UA Comment Not Reportable Assessment & Plan Plan: Assessment/Plan Narrative: 1. COMMUNITY-ACQUIRED PNEUMONIA NOTE PATIENT HAD PNEUMONIA PROCESS A MONTH AGO AND TREATED AT [facility]. CHEST X-RAY ON THIS ADMISSION NOTES INFILTRATE. NOTE THAT INFILTRATES CAN LINGER AFTER CLINICAL IMPROVEMENT FOR PERHAPS LONG 6 WEEKS. SINCE PATIENT HAS THE LOCULATED EFFUSION AND CONTINUES TO SMOKE I CERTAINLY HAVE A CONCERN FOR OTHER POTENTIAL UNDERLYING PROBLEM SUCH CANCER. CT OF THE CHEST WITH IV CONTRAST IS PENDING. 2. LOCULATED PLEURAL EFFUSION NOTE PATIENT HAD A PNEUMONIA PROCESS A MONTH AGO. SHE PRESENTED LAST NIGHT WITH A COMMUNITY-ACQUIRED PNEUMONIA. MAY NEED TO DO THORACENTESIS TO INVESTIGATE AND RULE OUT A COMPLICATED PARAPNEUMONIC EFFUSION THAT WARRANTS CHEST TUBE. 3. COPD WITH CONTINUED SMOKER ADDICTION CONTINUE RESPIRATORY MEDICATIONS. WILL [place] PATIENT REGARDING HER SMOKING. 4. BORDERLINE DIABETES THE PATIENT ON CHRONIC STEROIDS WHICH CAN CAUSE INCREASED BLOOD SUGAR LEVELS. HEMOGLOBIN A1C IS PENDING. I REQUESTED A ASPART INSULIN LOW-DOSE SLIDING SCALE Q.A.C. Q.H.S. 5. ESSENTIAL HYPERTENSION CONTINUE CARDIAC MEDS TOLERATED Time Spent With Patient Time with patient: Greater than 35 minutes (70 MIN TO ADMIT) Quality VTE Deep Vein Thrombosis/Pulmonary Embolism Present on Admission: No
--- NOTE | 2017-11-03 08:58 | P.HP_ITS ---
History of Present Illness Date Patient Seen: 11/03/17 Time Patient Seen: 05:55 Chief complaint: Chest pain Narrative: Patient is a 72 years of age female who notes a continued and somewhat progressive shortness of breath over the past several weeks. Patient also notes associated nausea without vomiting. No fever noted by patient. No alleviating nor precipitating factors apparent. No chest pain. Past history includes history of COPD with continued smoker addiction. Patient on chronic steroid therapy which certainly dampens her immune system function and increases her risk for infection. Patient notes last episode of pneumonia approximately a month ago she was admitted to [facility] for treatment. Patient History Comment: PAST MEDICAL HISTORY COPD AND CONTINUED SMOKER CHRONIC STEROID THERAPY DIABETES NOTED BORDERLINE ACCORDING TO PATIENT ESSENTIAL HYPERTENSION NO HISTORY OF THE FOLLOWING: THYROID DISORDER, HYPERLIPIDEMIA, DVT OR PULMONARY EMBOLISM, CANCER Family & Social History Social History: household members spouse Safety & Behavioral: Feels Safe in Current Yes Environment Suicidal Ideation Description None Suicide Plan Description No Plan Tobacco & Substance use: Tobacco type cigarettes Smoking Status Current every day smoker Smoking packs per day 0 alcohol intake frequency 0-2 drinks per day Substance Use Type does not use Comment: SOCIAL HISTORY PATIENT IS SHE IS A CONTINUED SMOKER SURGICAL HISTORY PARTIAL HYSTERECTOMY YEARS AGO FAMILY HISTORY NO CANCER Meds Home Medications Medication Instructions Recorded Confirmed Type albuterol sulfate 3 ml INH Q4HP PRN #30 01/15/16 11/03/17 Rx albuterol sulfate [Ventolin HFA] 2 puff INH Q4HP PRN #5 ea 01/15/16 11/03/17 Rx albuterol sulfate [ProAir HFA] 1 puff INHALATION Q4-6H PRN 11/03/17 11/03/17 History prednisone 5 mg PO BEDTIME 11/03/17 11/03/17 History prednisone 15 mg PO BID 11/03/17 11/03/17 History Allergies Allergy/AdvReac Type Severity Reaction Status Date / Time avocado [AVOCADO] Allergy Intermediate VOMITING Verified 11/02/17 18:26 Penicillins [PENICILLINS] Allergy Intermediate RASH Verified 11/02/17 18:26 Sulfa (Sulfonamide Allergy Intermediate FEELING Verified 11/02/17 18:26 Antibiotics) HOT-SWEATING [SULFA (SULFONAMIDE TO ANTIBIOTICS)] FREEZING COL Review of Systems Review of Systems TEN POINT SYSTEM REVIEWED WITH PATIENT WAS NEGATIVE EXCEPT FOR THE SYMPTOMS DESCRIBED IN HPI PATIENT NOTES PROGRESSIVE SHORTNESS OF BREATH OVER THE PAST SEVERAL WEEKS. NO FEVER. PATIENT DOES NOTE NAUSEA WITHOUT VOMITING Exam Vital Signs (past 8 hours): - 11/03/17 04:14 11/03/17 06:00 11/03/17 08:01 Temperature 97.4 F L 97.3 F L Pulse Rate 86 98 H 99 H Respiratory Rate 14 20 16 Blood Pressure 136/70 122/91 H Blood Pressure [Left Arm] 132/61 Pulse Oximetry 100 98 97 Oxygen Delivery Method Room Air Oxygen Flow Rate 0 Narrative Exam Narrative: GENERAL APPEARANCE AWAKE AND ALERT NO APPARENT DISTRESS AT REST PSYCHIATRIC WELL ORIENTED TO TIME PLACE PERSON MOOD AND AFFECT IS APPROPRIATE SKIN NO RASHES OR LESIONS GOOD TURGOR NONJAUNDICED EYES PUPILS ARE EQUAL ROUND AND REACTIVE TO LIGHT EARS NOSE AND THROAT HEARING GROSSLY INTACT NOSE SEPTUM MIDLINE NO BLEEDING NO OROPHARYNGEAL LESIONS LYMPHATICS NO LYMPHADENOPATHY TO NECK OR AXILLA RESPIRATORY FAIR BREATH SOUNDS NOTED. NO SIGNIFICANT CRACKLES OR WHEEZES NOTED CARDIOVASCULAR REGULAR RATE RHYTHM NO MURMURS PMI NONDISPLACED PULSES +3 TO EXTREMITIES GASTROINTESTINAL NO SIGNIFICANT TENDERNESS TO PALPATION POSITIVE BOWEL SOUNDS ARE NOTED NO GUARDING NO BRUITS NO ORGANOMEGALY MUSCULOSKELETAL STRENGTH 5/5 NO CLUBBING IS NOTED RANGE OF MOTION APPEARS NORMAL NEUROLOGIC NO FOCAL NEUROLOGIC CHANGES CRANIAL NERVES 2-12 GROSSLY INTACT Objective Labs Result Diagrams: 11/02/17 18:40 11/02/17 18:40 Labs: Laboratory Results - last 24 hr 11/02/17 11/02/17 11/03/17 18:40 18:40 03:54 WBC 16.7 H RBC 4.16 Hgb 13.7 Hct 39.8 MCV 95.6 MCH 32.9 MCHC 34.4 RDW 16.1 H Plt Count 144 L Neut % (Auto) 88.3 H Lymph % (Auto) 5.4 L [place] % (Auto) 5.7 Eos % (Auto) 0.0 L Baso % (Auto) 0.6 Neut # (Auto) 59152 H Sodium 137 Potassium 4.8 Chloride 100 Carbon Dioxide 21 L BUN 30 H Creatinine 0.90 Estimated GFR > 60.0 BUN/Creatinine Ratio 33.3 H Glucose 332 H Calcium 9.4 Total Bilirubin 0.8 AST 142 H ALT 169 H Alkaline Phosphatase 203 H Total Creatine Kinase < 20 L CK-MB (CK-2) TNP Troponin I 0.022 Total Protein 6.2 L Albumin 3.7 Globulin 2.5 Albumin/Globulin Ratio 1.5 Lipase 109 Urine Color Yellow Urine Appearance Clear Urine pH 5.0 Ur Specific [place] 1.015 Urine Protein Negative Urine Glucose (UA) 1+ Urine Ketones Trace H Urine Occult Blood Negative Urine Nitrate Negative Urine Bilirubin Negative Urine Urobilinogen 0.2 Ur Leukocyte Esterase Negative Urine RBC None seen Urine WBC None seen Ur Squamous Epith Cells 1-5 /hpf Urine Bacteria Few (2-10) H Ur Culture Indicated? Cult not indicated Micro UA Comment Not Reportable Assessment & Plan Plan: Assessment/Plan Narrative: 1. COMMUNITY-ACQUIRED PNEUMONIA NOTE PATIENT HAD PNEUMONIA PROCESS A MONTH AGO AND TREATED AT [facility]. CHEST X-RAY ON THIS ADMISSION NOTES INFILTRATE. NOTE THAT INFILTRATES CAN LINGER AFTER CLINICAL IMPROVEMENT FOR PERHAPS LONG 6 WEEKS. SINCE PATIENT HAS THE LOCULATED EFFUSION AND CONTINUES TO SMOKE I CERTAINLY HAVE A CONCERN FOR OTHER POTENTIAL UNDERLYING PROBLEM SUCH CANCER. CT OF THE CHEST WITH IV CONTRAST IS PENDING. 2. LOCULATED PLEURAL EFFUSION NOTE PATIENT HAD A PNEUMONIA PROCESS A MONTH AGO. SHE PRESENTED LAST NIGHT WITH A COMMUNITY-ACQUIRED PNEUMONIA. MAY NEED TO DO THORACENTESIS TO INVESTIGATE AND RULE OUT A COMPLICATED PARAPNEUMONIC EFFUSION THAT WARRANTS CHEST TUBE. 3. COPD WITH CONTINUED SMOKER ADDICTION CONTINUE RESPIRATORY MEDICATIONS. WILL [place] PATIENT REGARDING HER SMOKING. 4. BORDERLINE DIABETES THE PATIENT ON CHRONIC STEROIDS WHICH CAN CAUSE INCREASED BLOOD SUGAR LEVELS. HEMOGLOBIN A1C IS PENDING. I REQUESTED A ASPART INSULIN LOW-DOSE SLIDING SCALE Q.A.C. Q.H.S. 5. ESSENTIAL HYPERTENSION CONTINUE CARDIAC MEDS TOLERATED Time Spent With Patient Time with patient: Greater than 35 minutes (70 MIN TO ADMIT) Quality VTE Deep Vein Thrombosis/Pulmonary Embolism Present on Admission: No
[2017-11-03] MEDS: SODIUM CHLORIDE 0.9% 1,000 ML 100 ML IV (09:16)
[2017-11-03] MEDS: ENOXAPARIN 40 MG/0.4 ML SYRINGE SUBCUT (09:16)
--- NOTE | 2017-11-03 10:39 | CM.DANOTE ---
DCP: Case received, EMR reviewed and met with patient. Introduced self and role. DCP template completed with information currently available. Patient is a 72 year old female who admitted early this morning to the care of the hospitalist team. PCP: Dr. Scott in [place]. Payer: Medicare Advantage/[place] Patient was admitted to hospital for chest pain and shortness of breath. Patient carries a diagnosis of Acquired Pneumonia. Had previously been to [facility] with Pneumonia about a month ago. Patient lives in with her . Patient stated that her also cares for her. P: DCP to continue to assess. May benefit [facility] depending on hospital stay and if condition improves. Felicia Flores, RN/Process Architect
[2017-11-03] MEDS: ALBUTEROL/IPRATROPIUM 3 ML AMPUL INH ×2 (11:57→17:21)
[2017-11-03] MEDS: INSULIN ASPART 100 UNIT/ML INSULN PEN SUBCUT ×2 (12:35→17:35)
[2017-11-03] MEDS: MORPHINE 2 MG/ML INJ IV (12:43)
--- NOTE | 2017-11-03 14:17 | PC.NURSE ---
Pt is A&ox3. She complains of Epigastric pain and states that the pain is not radiating down her l.arm or having neck pain. Given 1mg of iv morphine and helpul. Pt stated that her pain was 8/10 and has resolved. Just talked to Dr. Hicks and he wants her to have IV protonix now and then 40mg q day, also to obtain an EKG. LS with crackles and wheezes on inspiration and experation. [place] [facility] [place] had exertion with moving. She voided and back to bed, she is unsteady on her feet. Resting now and tolerating ivf. RA sats are 99%
[2017-11-03] MEDS: PANTOPRAZOLE 40 MG VIAL IV (15:31)
--- NOTE | 2017-11-03 15:54 | PC.NURSE ---
Pt is lying quietly in bed and rouses easily to voice. Oriented x 3. Weakness to all extremities and requires assistance to exit bed to commode to void. Denies chest pain, denies nausea or other GI complaints. Frequent moist cough. Pt reports white sputum and this is unwitnessed. Room air 97%. Bed alarm for pt safety as pt states h/o falls.
--- NOTE | 2017-11-03 18:47 | PC.NURSE ---
Pt mostly sleeping in bed on right side with head of bed slightly elevated. R.T. in to treat and instruct pt in acapella use. Pt keeps eyes closed during most of conversation, but answers and responds appropriately.
--- NOTE | 2017-11-03 22:26 | PC.NURSE ---
Mostly sleeping this evening shift. Pt's spouse did visit with patient earlier this evening. Now resting quietly on left side in bed. Cough has abated. No c/o chest pain this evening shift. Offered toileting and pt declined.
--- NOTE | 2017-11-03 23:57 | PM.PN.1 ---
Subjective Date Patient Seen: 11/03/17 Time Patient Seen: 10:58 Interval history: Follow-up on patient with community-acquired pneumonia diagnosis. A CT of the chest was done with IV contrast to investigate further. Fortunately, no malignancy was described. Patient also with elevated liver enzymes. Limited ultrasound of the abdomen notes prominent fatty liver gallbladder appears normal. Review of systems Patient notes breathing better no chest pain or shortness of breath nausea Exam Vital Signs (past 8 hours): - 11/03/17 16:05 11/03/17 17:21 11/03/17 20:16 Temperature 98.0 F 96.9 F L Pulse Rate 85 89 89 Respiratory Rate 20 15 18 Blood Pressure 115/65 118/58 L Pulse Oximetry 97 96 99 Oxygen Delivery Method Room Air Oxygen Flow Rate 0 Narrative Exam Narrative: General appearance patient is awake and alert no apparent distress Psychiatric well oriented to time place person mood is pleasant cooperative Respiratory fair breath sounds are noted with no significant crackles or wheezing Cardiovascular regular rate rhythm no murmur rubs or gallops PMI nondisplaced pulses +3 to extremities Gastrointestinal soft nontender positive bowel sounds no masses no guarding no bruits Neurologic no focal neurologic changes cranial nerves 2-12 grossly intact Objective Labs Result Diagrams: 11/02/17 18:40 11/02/17 18:40 Labs: Laboratory Results - last 24 hr 11/03/17 11/03/17 03:54 Unknown Hemoglobin A1c 8.0 H Urine Color Yellow Urine Appearance Clear Urine pH 5.0 Ur Specific [place] 1.015 Urine Protein Negative Urine Glucose (UA) 1+ Urine Ketones Trace H Urine Occult Blood Negative Urine Nitrate Negative Urine Bilirubin Negative Urine Urobilinogen 0.2 Ur Leukocyte Esterase Negative Urine RBC None seen Urine WBC None seen Ur Squamous Epith Cells 1-5 /hpf Urine Bacteria Few (2-10) H Ur Culture Indicated? Cult not indicated Micro UA Comment Not Reportable Assessment & Plan Plan: Assessment/Plan Narrative: GENERAL APPEARANCE AWAKE AND ALERT NO APPARENT DISTRESS AT REST PSYCHIATRIC WELL ORIENTED TO TIME PLACE PERSON MOOD AND AFFECT IS APPROPRIATE SKIN NO RASHES OR LESIONS GOOD TURGOR NONJAUNDICED Quality VTE Deep Vein Thrombosis/Pulmonary Embolism Present on Admission: No
[2017-11-04] VITALS (9 sets, daily range): BP systolic 111–132; BP diastolic 54–64; PULSE 87–110; RESP 15–20; TEMP 36.5–37; O2SAT 91–97
[2017-11-04] MEDS: SODIUM CHLORIDE 0.9% 1,000 ML 100 ML IV ×3 (05:19→14:38)
[2017-11-04] MEDS: ALBUTEROL/IPRATROPIUM 3 ML AMPUL INH ×3 (05:36→20:02)
[2017-11-04] MEDS: INSULIN ASPART 100 UNIT/ML INSULN PEN SUBCUT ×2 (08:16→17:24)
[2017-11-04] MEDS: PANTOPRAZOLE 40 MG VIAL IV (08:16)
[2017-11-04 08:53] LABS: Creatine Kinase 54 U/L (30-135)
[2017-11-04 09:05] LABS: Troponin I 0.042 ng/mL (0.01-0.034)
--- NOTE | 2017-11-04 11:45 | CM.DPC ---
DCP Cont: Called [employer], in case patient needs skilled care. Phone number was [phone]. Stated that patient would be covered for 20 days at skilled facility at 100%. After that, patient would need to make a co-payment at 167.00 a day. Would need to call authorization number before discharge. Number is: [phone]. P: DCP to continue to assess and note if she will need halfway upon discharge. Felicia Flores RN/Career Development Manager
--- NOTE | 2017-11-04 15:43 | PC.NURSE ---
Pt mostly sleeping on her right side, reports this position is more comfortable. Per RT, neb treatments seem to be helping with her breathing. Denies pain. On room air with sats at 93%. Pt making minimal effort to engage. One person to assist to BSC.
--- NOTE | 2017-11-04 16:25 | PC.NURSE ---
Per SCREENPLAY WRITER, pt up to commode with assistance @ beginning of shift. O.T. now in to see patient.
--- NOTE | 2017-11-04 16:43 | OT.IP.TRT ---
Current Diagnoses Pneumonia, unspecified organism (11/03/17) Occupational Therapy Treatment Note M3 OT- IP Subjective and Pain Start: 11/04/17 16:35 Freq: Status: Active Protocol: Document 11/04/17 16:35 [facility] (Rec: 11/04/17 16:43 [facility] [id number]) OT- Subjective Occupational Therapy Visit Type Type Patient Refusal Notes Pt not wanting to get out of bed at this time. Able to get information about house step up and prior history from pt. To see pt for OT eval tomorrrow.
--- NOTE | 2017-11-04 17:38 | PC.NURSE ---
Pt lying in bed on right side with eyes closed. Denies pain when asked. Pt keeps eyes closed at all times while conversing, but provides appropriate responses to this handbook writer. Denies chest pain when specifically asked. Tele in place. Pt has occasional moist, productive cough with white sputum. Congested breath sounds to BL anterior coy. Room air 95%. Pt requests this handbook writer administer morphine. This handbook writer repeated to pt pt just stated having no pain. Well, I'm having pain. This handbook writer inquires location of pain. All over 12/08, but continues to deny chest pain. This handbook writer offered tylenol to patient stating is mostly sleeping and has slept all day and this handbook writer hesitant to administer sedating meds with this in mind. Pt reports is aware of this. Pt does not assess at 10 pain and goes back to lying quietly in bed on right side with eyes closed. IV fluids infusing as ordered to left forearm iv site without difficulty.
[2017-11-04] MEDS: predniSONE 5 MG TABLET PO (20:08)
[2017-11-04] MEDS: predniSONE 5 MG TABLET 15 MG PO (20:08)
--- NOTE | 2017-11-04 20:59 | P.PN_ITS ---
Subjective Date Patient Seen: 11/04/17 Time Patient Seen: 10:58 Interval history: Patient admitted to the hospital with a community-acquired pneumonia. A loculated pleural effusion was also noted on the initial workup. CT of the chest was done evaluate for possibility of underlying malignancy. No malignancy was seen fortunately. Patient with elevated liver enzymes. A ultrasound limited of the abdomen was done. Gallbladder appeared normal. Fatty liver was noted however. Review of systems No chest pain or shortness of breath no nausea Exam Vital Signs (past 8 hours): - 11/04/17 13:55 11/04/17 15:51 11/04/17 19:43 Temperature 98.3 F 97.7 F Pulse Rate 98 H 110 H 103 H Respiratory Rate 15 20 20 Blood Pressure 111/55 L 124/62 Pulse Oximetry 96 95 96 11/04/17 20:32 Temperature Pulse Rate Respiratory Rate Blood Pressure Pulse Oximetry 95 Oxygen Delivery Method Room Air Oxygen Flow Rate 0 Narrative Exam Narrative: GENERAL APPEARANCE AWAKE AND ALERT NO APPARENT DISTRESS AT REST PSYCHIATRIC WELL ORIENTED TO TIME PLACE PERSON MOOD AND AFFECT IS APPROPRIATE SKIN NO RASHES OR LESIONS GOOD TURGOR NONJAUNDICED RESPIRATORY FAIR BREATH SOUNDS NOTED. NO SIGNIFICANT CRACKLES OR WHEEZES NOTED CARDIOVASCULAR REGULAR RATE RHYTHM NO MURMURS PMI NONDISPLACED PULSES +3 TO EXTREMITIES GASTROINTESTINAL NO SIGNIFICANT TENDERNESS TO PALPATION POSITIVE BOWEL SOUNDS ARE NOTED NO GUARDING NO BRUITS NO ORGANOMEGALY MUSCULOSKELETAL STRENGTH 5/5 NO CLUBBING IS NOTED RANGE OF MOTION APPEARS NORMAL NEUROLOGIC NO FOCAL NEUROLOGIC CHANGES CRANIAL NERVES 2-12 GROSSLY INTACT Objective Labs Result Diagrams: 11/02/17 18:40 11/02/17 18:40 Labs: Laboratory Results - last 24 hr 11/04/17 08:13 Total Creatine Kinase 54 Troponin I 0.042 H Assessment & Plan Plan: Assessment/Plan Narrative: 1. COMMUNITY-ACQUIRED PNEUMONIA NOTE PATIENT HAD PNEUMONIA PROCESS A MONTH AGO AND TREATED AT [facility]. CHEST X-RAY ON THIS ADMISSION NOTES INFILTRATE. NOTE THAT INFILTRATES CAN LINGER AFTER CLINICAL IMPROVEMENT FOR PERHAPS LONG 6 WEEKS. SINCE PATIENT HAS THE LOCULATED EFFUSION AND CONTINUES TO SMOKE I CERTAINLY HAVE A CONCERN FOR OTHER POTENTIAL UNDERLYING PROBLEM SUCH CANCER. CT OF THE CHEST WITH IV CONTRAST WAS DONE AND NO MALIGNANCY WAS IDENTIFIED FORTUNATELY. 2. LOCULATED PLEURAL EFFUSION NOTE PATIENT HAD A PNEUMONIA PROCESS A MONTH AGO. SHE PRESENTED LAST NIGHT WITH A COMMUNITY-ACQUIRED PNEUMONIA. MAY NEED TO DO THORACENTESIS TO INVESTIGATE AND RULE OUT A COMPLICATED PARAPNEUMONIC EFFUSION THAT WARRANTS CHEST TUBE. WILL FOLLOW PATIENT'S CLINICAL COURSE BIT TO DETERMINE. 3. COPD WITH CONTINUED SMOKER ADDICTION CONTINUE RESPIRATORY MEDICATIONS. WILL CHEVAK PATIENT REGARDING HER SMOKING. 4. BORDERLINE DIABETES THE PATIENT ON CHRONIC STEROIDS WHICH CAN CAUSE INCREASED BLOOD SUGAR LEVELS. HEMOGLOBIN A1C IS PENDING. I REQUESTED A ASPART INSULIN LOW-DOSE SLIDING SCALE Q.A.C. Q.H.S. 5. ESSENTIAL HYPERTENSION CONTINUE CARDIAC MEDS TOLERATED Time Spent With Patient Time with patient: 25 - 35 minutes (25 MIN) Quality VTE Deep Vein Thrombosis/Pulmonary Embolism Present on Admission: No
[2017-11-05] VITALS (12 sets, daily range): BP systolic 115–157; BP diastolic 58–74; PULSE 69–108; RESP 16–22; TEMP 36.2–36.8; O2SAT 94–99
[2017-11-05] MEDS: SODIUM CHLORIDE 0.9% 1,000 ML 100 ML IV ×3 (01:26→20:53)
[2017-11-05] MEDS: MORPHINE 2 MG/ML INJ IV (06:01)
--- NOTE | 2017-11-05 06:07 | PC.NURSE ---
NOC note: Pt reporting pain and requesting PRN morhine at 0600, Pt stated that she has had the pain for quite some time. When asked to describe or marybeth her pain she stated I just want to go to sleep and not wake up, she denies any attempt to seek treatment for this pain prior to this hospital stay and she also stated I live in an so if I am able to make it to the bathroom I'm doing good. Pt keeps eyes closed during assessment and VS. Pt denies feeling SOB, has occ. wheezes, rhonchi and right posterior rub. Pt remains on her right side to sleep and is independent with bed mobility. Pt has slept most of the night.
[2017-11-05] MEDS: ALBUTEROL/IPRATROPIUM 3 ML AMPUL INH ×3 (06:27→19:08)
[2017-11-05] MEDS: predniSONE 5 MG TABLET 15 MG PO ×2 (09:31→20:03)
[2017-11-05] MEDS: ACETAMINOPHEN 325 MG TABLET 650 MG PO ×2 (09:31→22:00)
[2017-11-05] MEDS: PANTOPRAZOLE 40 MG VIAL IV (09:32)
[2017-11-05] MEDS: INSULIN ASPART 100 UNIT/ML INSULN PEN SUBCUT ×3 (09:32→16:34)
[2017-11-05 10:09] LABS: Hematocrit 31.2 % (36-46); Hemoglobin 10.9 g/dL (12.0-16.0); Mean Corpuscular Volume 94.4 fL (80-100); Platelet Count 97 X10^3/uL (150-400); Red Cell Distribution Width 15.8 % (11.6-14.8); White Blood Cell Count 11.4 X10^3/uL (4.5-11.0)
[2017-11-05 10:10] LABS: Add Manual Diff / Slide Review YES
--- NOTE | 2017-11-05 10:20 | PT.IIE ---
Current Diagnoses Pneumonia, unspecified organism (11/03/17) Physical Therapy Inpatient Evaluation/Re-Eval M1 PT/OT-IP Prior Functional Status Start: 11/04/17 16:35 Freq: NEEDED Status: Active Protocol: Document 11/05/17 10:20 AB (Rec: 11/05/17 12:06 [id number]) Medical Review Prior Functional Status Medical History Reviewed Yes Communication able to make needs known Mobility and Gait pt stated that she needs assistance with all mobilities and ambulation requiring PEWTER FINISHER. stated that her house is small and AD will not fit in. Prior Functional Level (Other details) pt stated that she has been needing assistance for a long time and has been getting weaker for the last month or so. Social History Household Members spouse Living Arrangements RV Number of Stairs To Enter/Railing? Has 4 steps to enter with L rail and has 3 steps without rails to get from living room to bed room. Home Environment Standard Height Toilet Walk in Shower Home Equipment Four Wheel Walker Shower Seat with Backrest M2 PT-IP Current Condition Start: 11/05/17 11:54 Freq: NEEDED Status: Active Protocol: Document 11/05/17 10:20 AB (Rec: 11/05/17 12:06 AB [id number]) Physical Therapy Current Condition Current Condition Evaluation Date 11/05/17 Treatment Diagnosis chest pain Onset Date 11/03/17 Precautions Other Precautions falls M3 PT-IP Subjective Start: 11/05/17 11:54 Freq: NEEDED Status: Active Protocol: Document 11/05/17 10:20 AB (Rec: 11/05/17 12:06 [id number]) Subjective Physical Therapy Visit Type Type Initial Evaluation Visit Start Time 10:20 Visit Stop Time 10:44 Total Visit Minutes 22 Number of KNIFE SETTER GRINDER MACHINE Visits 0 Physical Therapy Visit Comments Patient Comments pt requires motivation to participate Therapy Pain Assessment Pain When Pain Assessed At Rest Pain Present Pain Present Pain Reported Location Generalized Scale Used pain scale not stated Pain Management Techniques Timing of Activity with Medications M4 PT-IP Mobility and Gait Start: 11/05/17 11:54 Freq: NEEDED Status: Active Protocol: Document 11/05/17 10:20 AB (Rec: 11/05/17 12:06 [id number]) PT-Bed Mobility Assessment Supine to Sit Supine to Sit Maximum Assistance 1 Person Assistance Bedrails Sit to Supine Sit to Supine Maximum Assistance 1 Person Assistance Bedrails PT-Transfer Assessment Sit to and From Stand Sit to and from Stand Maximum Assistance 1 Person Assistance Use of Upper Extremities Equipment Transfer Assistive Device Gait Belt Front Wheeled Walker Orthotic/Prosthetic Devices or Brace: No Comments Mobility Comments pt refused to sit on chair Gait Assessment Gait Gait Assistance Required: Maximum Assistance Distance (Feet) (feet) 3 Able to Maintain Weight Bearing Status Yes During Gait Assistive Devices Assistive Device Gait Belt Front Wheeled Walker Orthotic/Prosthetic Devices or Brace: No Gait Deviations General Gait Pattern Decreased Stride Length Decreased Feet Clearance Flexed Trunk Factors Limiting Gait Function Factors Limiting Gait Function Decreased Activity Tolerance Decreased Strength Difficulty Following Directions Pain Poor Balance Poor Safety Awareness PT-Balance Assessment Sitting Balance and Reactions Static Sitting Balance Ability Good Dynamic Sitting Balance Ability Fair Standing Balance and Reactions Static Standing Balance Ability Poor Dynamic Standing Balance Ability Poor Device Used FWW M5 PT-IP Objective Assessments Start: 11/05/17 11:54 Freq: NEEDED Status: Active Protocol: Document 11/05/17 10:20 AB (Rec: 11/05/17 12:06 AB [id number]) Orientation Orientation/Cognition Level of Alertness Alert Orientation Name Safety Awareness Decreased Safety Awareness Memory Description Short Term Impaired Social Services Designee Impaired Strength Lower Extremity Strength Assessment Bilaterally Impaired M6 PT-IP Treatment Start: 11/05/17 11:54 Freq: NEEDED Status: Active Protocol: Document 11/05/17 10:20 AB (Rec: 11/05/17 12:06 AB [id number]) Physical Therapy Treatment Education Education Provided Safety M7 PT-IP Assessment and Plan Start: 11/05/17 11:54 Freq: NEEDED Status: Active Protocol: Document 11/05/17 10:20 AB (Rec: 11/05/17 12:06 AB [id number]) PT Summary Assessment and Plan Potential Rehabilitation Potential Fair Status of Condition at Evaluation Evolving Summary Impairments Pain ROM Strength Balance Coordination Cognition Bed Mobility Transfers Gait Activity Tolerance Assessment Summary pt has decrease activity tolerance affecting mobility. pt requires max A and max cues with mobility and need motivation to participate. pt will require SNF rehab to improve function and increase strength/activity tolerance. Goals Bed Mobility Goal Minimal Assistance Transfer Goal Minimal Assistance Gait Goal Minimal Assistance Gait Distance 50 Other Goals up/down 4 steps with L rail ascending; up/down 3 steps without rails Frequency of Treatment Frequency Of Treatment Once a Day Treatment Plan Physical Therapy Treatment Plan Bed Mobility Training Transfer Training Gait Training Therapeutic Exercise Balance Retraining Discharge Planning Hot or Cold Pack Neuromuscular Re-ed Coordination Retraining Manual Therapy Other Recommendations and Next Treatment transfers, ambulation Focus Recommendations To Nursing Amount of Assist Needed 1 Person Assist Discharge Recommendations PT Discharge Recommendations SNF Rehab
[2017-11-05 10:22] LABS: Alanine Aminotransferase 87 IU/L (9-52); Albumin Globulin Ratio 1.3 (1.0-2.8); Alkaline Phosphatase 149 U/L (38-126); Aspartate Aminotransferase 44 IU/L (14-36); Bilirubin Total 0.8 mg/dL (0.2-1.3); Blood Urea Nitrogen 4 mg/dL (7-17); Calcium 8.2 mg/dL (8.4-10.2); Carbon Dioxide 22 mmol/L (22-32); Chloride 109 mmol/L (98-107); Estimated Glomerular Filt Rate > 60.0 mL/min (>60); Globulin 2.3 g/dL (1.7-4.1); Glucose 220 mg/dL (80-110); HEMOLYSIS < 15 (0-50); Potassium 3.9 mmol/L (3.4-5.1); Sodium 137 mmol/L (137-145); Total Protein 5.3 g/dL (6.3-8.2)
[2017-11-05 10:35] LABS: Neutrophils Absolute Manual 9234 /uL (3000-5900); RBC Morphology Normal Morphology; Total Cells Counted 100
--- NOTE | 2017-11-05 10:49 | PM.PN.1 ---
Subjective Interval history: Patient continues to complain of pain. She states that she was given morphine 2 hr ago and that it has been of little help today. As mention that loculated pleural effusion was noted on initial workup. CT of the chest was done without any evidence of any malignancy. The elevated liver enzymes were noted. Ultrasound was done. She mentioned that the gallbladder appeared normal and that there was only fatty infiltration noted. Patient has no prior history of hepatitis or no liver problems. Exam Vital Signs (past 8 hours): - 11/05/17 06:09 11/05/17 06:27 11/05/17 07:35 Temperature 97.6 F 97.3 F L Pulse Rate 96 H 69 87 Respiratory Rate 18 18 20 Blood Pressure 128/58 L 133/74 Pulse Oximetry 96 97 99 Oxygen Delivery Method Room Air Oxygen Flow Rate 0 Narrative Exam Narrative: General NAD HEENT normocephalic atraumatic extraocular movement was intact there was no scleral icterus fundi not viewed oropharynx clear Neck is supple without thyromegaly bruit struggling distention Respiratory clear to auscultation Cardiovascular regular rhythm S1-S2 was normal neuroma sees rubs murmurs gallops present pulses are intact Gastrointestinal benign bowel sounds active Musculoskeletal full range of motion no clubbing edema or cyanosis Neurologic awake alert oriented x3 grossly nonfocal Objective Labs Result Diagrams: 11/05/17 09:53 11/05/17 09:53 Labs: Laboratory Results - last 24 hr 11/05/17 11/05/17 09:53 09:53 WBC 11.4 H RBC 3.30 L Hgb 10.9 L Hct 31.2 L MCV 94.4 MCH 33.0 MCHC 35.0 RDW 15.8 H Plt Count 97 L Neut % (Auto) Not Reportable Lymph % (Auto) Not Reportable [place] % (Auto) Not Reportable Eos % (Auto) Not Reportable Baso % (Auto) Not Reportable Total Counted 100 Seg Neutrophils % 67.0 Band Neutrophils % 14.0 H Lymphocytes % (Manual) 10.0 L Atypical Lymphs % 4.0 H Monocytes % (Manual) 5.0 Neutrophils # (Manual) 9234 H RBC Morphology Normal morphology Sodium 137 Potassium 3.9 Chloride 109 H Carbon Dioxide 22 BUN 4 L Creatinine 0.40 L Estimated GFR > 60.0 BUN/Creatinine Ratio 10.0 Glucose 220 H D Calcium 8.2 L Total Bilirubin 0.8 AST 44 H ALT 87 H Alkaline Phosphatase 149 H Total Protein 5.3 L Albumin 3.0 L Globulin 2.3 Albumin/Globulin Ratio 1.3 Assessment & Plan Plan: Assessment/Plan Narrative: 1. Healthcare associated pneumonia/ Loculated pleural effusion Patient was admitted to [facility] with pneumonia approximately a month ago. Chest x-ray this admission shows infiltrate is possible that is lingering infiltrated may take some time to resolve. One wonder about. Pneumonic effusion causing problems. Presently the patient does not want any workup. She did allow CT of the chest with IV contrast. No malignancy was noted 2. Loculated pleural effusion As mentioned above patient does not want any further evaluation. Will continue to treat with IV antibiotics. 3. COPD No acute respiratory symptoms at this time. 4. diabetes She has had a hemoglobin A1c done and she is on sliding scale insulin a.c. and HS Her glucoses are elevated as mentioned she is on sliding scale insulin is also on steroids which can lead to glucose intolerance. Patient does not want insulin will need to use oral hypoglycemics. Metformin will not be used as her lactic acid has been elevated on admission. 5. Elevated lactic acid [place] probably related to infection. Will follow up lactic acid 6. Goals of care Patient does not want any ongoing treatment. She requires help with all ADLs by her . She has told her sister that she is dying and she just wanted to call until her goodbye. Will continue to monitor and discuss possibility of hospice with the patient 7. Elevated LFTs Question of drugs at all could be part of the problem There is there is improvement since hospitalization. Checking hepatitis panel Check coags CT abdomen ordered Quality VTE Deep Vein Thrombosis/Pulmonary Embolism Present on Admission: No
--- NOTE | 2017-11-05 11:05 | PC.NURSE ---
Addendum entered by Triny Villarreal R.N. 11/05/17 14:28: per SENIOR CYBER INTELLIGENCE ANALYST, pt is in a much better mood today. She requested a bed bath, to clean her teeth and get cleaned up today. Ate all of her breakfast and lunch. will continue to monitor. Original Note: day shift spoke with on the phone and he voiced his concerns about pt's condition. he reports she called her sister in [place] and told her goodbye and that she loved her. he also states that he has been providing all of pt's ADL care for her for the last few months. he has to move the RV [id number] and the last time she refused to get out of bed for move so she stayed in the RV while he moved sites. Informed MD of conversation and that would like update by phone as well. Spoke with pt about her choices and she reiterates that she is done. she doesn't want to live any more. throughout conversation she states that she is tired and done. asks about pain medication, when asked pt about her pain, she won't quantify it really, just states she is tired and sore. her legs are weak and she doesn't want to get out of bed. will continue to monitor.
--- NOTE | 2017-11-05 12:48 | OT.IP.EVAL ---
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 stated that her house is small and AD will not fit in. Prior Functional Level (Other details) pt stated that she has been needing assistance for a long time and has been getting weaker for the last month or so. Social History Household Members spouse Living Arrangements RV Number of Stairs To Enter/Railing? Has 4 steps to enter with L rail and has 3 steps without rails to get from living room to bed room. Home Environment Standard Height Toilet Walk in Shower Home Equipment Four Wheel Walker Shower Seat with Backrest M1 PT/OT-IP Prior Functional Status Start: 11/05/17 11:54 Freq: NEEDED Status: Active Protocol: Document 11/05/17 12:33 [facility] (Rec: 11/05/17 12:48 [facility] [id number]) Medical Review Prior Functional Status Medical History Reviewed Yes Communication able to make needs known Mobility and Gait pt stated that she needs assistance with all mobilities and ambulation requiring ARMORER TECHNICIAN. stated that her house is small and AD will not fit in. Activities of Daily Living and IADL's Pt states does grooming and eat from the bed and only gets up with 's help to get to the bathroom as few feet from the bed. Prior Functional Level (Other details) pt stated that she has been needing assistance for a long time and has been getting weaker for the last month or so. Social History Household Members spouse Living Arrangements RV Number of Stairs To Enter/Railing? Has 4 steps to enter with L rail and has 3 steps without rails to get from living room to bed room. Home Environment Standard Height Toilet Walk in Shower Home Equipment Four Wheel Walker Shower Seat with Backrest M2 OT-IP Current Condition Start: 11/04/17 16:35 Freq: Status: Active Protocol: Document 11/05/17 12:33 [facility] (Rec: 11/05/17 12:48 [facility] [id number]) Occupational Therapy Current Condition Current Condition Evaluation Date 11/05/17 Treatment Diagnosis PNA, weakness Post Operative Precautions Other Precautions falls Weight Bearing Status Weight Bearing Status Weight Bear as Tolerated M3 OT- IP Subjective and Pain Start: 11/04/17 16:35 Freq: Status: Active Protocol: Document 11/05/17 12:33 [facility] (Rec: 11/05/17 12:48 [facility] [id number]) OT- Subjective Occupational Therapy Visit Type Type Initial Evaluation Visit Start Time 09:55 Visit Stop Time 10:20 Total Visit Minutes 25 Occupational Therapy Visit Comments Patient Comments Pt just agreeable to get up to the [facility] [place]. OT Pain Assessment Pain When Pain Assessed At Rest Pain Present Pain Present Pain Reported Location Generalized Intensity 10 Scale Used Numeric (1 - 10) M4 OT- IP ADL's Start: 11/04/17 16:35 Freq: Status: Active Protocol: Document 11/05/17 12:33 [facility] (Rec: 11/05/17 12:48 [facility] [id number]) OT ADL-Toileting General Evaluation Toileting Ability Minimal Assistance Areas Needing Assistance Manage Clothing Devices Toileting Assistive Devices Commode Comments OT Toileting Comments After set-up , pt needing lots of encouragement to do own pericare needs. CGA for balance while leaning forwards . M5 OT- IP IADL's Start: 11/04/17 16:35 Freq: Status: Active Protocol: Document 11/05/17 12:33 [facility] (Rec: 11/05/17 12:48 [facility] [id number]) OT-Instrumental Activities of Daily Living Home Safety Awareness Awareness of Need for Assistance at Home Decreased Awareness Medication Management Medication Management Caregiver Administers Money Management Money Management Caregiver Provides Assistance Meal Preparation Meal Preparation Caregiver Provides Assist Research Neuropsychologist Research Neuropsychologist Caregiver Provides Assist Driving Driving Caregiver Provides Assist M6 OT- IP Functional Cognition Start: 11/04/17 16:35 Freq: Status: Active Protocol: Document 11/05/17 12:33 [facility] (Rec: 11/05/17 12:48 [facility] [id number]) Cognitive Factors Limiting Selfcare Function Cognitive Ability Level of Alertness Alert Patient Orientation Name Place Situation Attention Span Ability Capable of Focused Attention Capable of Sustained Attention Ability to Follow Commands Able to Follow One Step Commands Cognitive Comments Cognitive Assessment Comments Pt not lots of encouragement to get up perserverating on pain and that she is unable to do for herself. M7 OT- IP Mobility and Balance Start: 11/04/17 16:35 Freq: Status: Active Protocol: Document 11/05/17 12:33 [facility] (Rec: 11/05/17 12:48 [facility] [id number]) OT- Bed Mobility Assessment Rolling Type of Rolling Roll to Left Level of Assistance Moderate Assistance Supine to Sit Supine to Sit Assist Moderate Assistance Sit to Supine Sit to Supine Assist Moderate Assistance Scooting Scooting to Edge of Bed Moderate Assistance OT-Transfer Assessment Sit to and From Stand Sit to and from Stand Moderate Assistance Transfers Transfer Ability Moderate Assistance Technique Transfer Destination Bed Bedside Commode Transfer Technique Stand Step Pivot Devices Transfer Assistive Devices Gait Belt Comments Mobility Comments Pt refusing to use FWW and therefore performed transfer with gait belt and stand pivot . Pt states at home just assists with all OT needs and FWW too big to use in RV. OT- Balance Assessment Sitting Balance and Reactions Static Sitting Balance Ability Good Dynamic Sitting Balance Ability Fair Standing Balance and Reactions Static Standing Balance Ability Poor Dynamic Standing Balance Ability Poor M8 OT- IP Objective Assessments Start: 11/04/17 16:35 Freq: Status: Active Protocol: Document 11/05/17 12:33 [facility] (Rec: 11/05/17 12:48 [facility] [id number]) OT Gross Range of Motion Upper Extremity Range of Motion Assessment Bilaterally Impaired OT Strength Upper Extremity Strength Assessment Bilaterally Impaired Comments Strength Comments Pt due to fatigue and weakness needing assist for functional mobility. Strength 3-/5 to 3+ /5. M9 OT- IP Assessment and Plan Start: 11/04/17 16:35 Freq: Status: Active Protocol: Document 11/05/17 12:33 [facility] (Rec: 11/05/17 12:48 [facility] [id number]) OT Summary Assessment and Plan Potential Rehabilitation Potential Fair Analytic Complexity at Evaluation Moderate Summary OT Impairments Pain Strength Balance Functional Cognition Functional Mobility Grooming Dressing Toileting Bathing Toilet Transfers Shower Transfers Progress Towards Goals Slow Progress due to Pain Slow Progress due to Medical Issues Slow Progress due to Activity Tolerance Slow Progress due to Cognition Assessment Summary Pt MOD complexity main barrier is pain, fatigue, needing lots of encouragement for motivation, decreased strength and activity tolerance and will continue to need to assist for all needs. Pt would benefit from skilled rehab to get stronger before going home. Goals Grooming Goal Standby Assistance Dressing Goal Minimal Assistance Toileting Goal Contact Guard Assistance Bathing Goal Moderate Assistance Toilet Transfer Goal Contact Guard Assistance Shower Transfer Goal Minimal Assistance Patient/Caregiver Education Goal Caregiver Independent Assisting Patient Days to Meet Goals 7 Frequency of Treatment Frequency Of Treatment Once a Day Treatment Plan OT Treatment Plan ADL Training Functional Cognition Training Functional Mobility Patient/Family Education Discharge Planning Other Treatment Recommendations and Next Practice LB dressing, standing Treatment Focus at the sink for grooming needs. Discharge Recommendations OT Discharge Recommendations Home with 21/09 Assist SNF Rehab Home Equipment Needs [facility] [place] [facility]
[2017-11-05 13:23] LABS: Hepatitis B Surface Antigen NEGATIVE s/c (NEGATIVE)
[2017-11-05 13:44] LABS: Hep C Virus Ab w/Reflex Quant NEGATIVE s/c (NEGATIVE)
--- NOTE | 2017-11-05 16:06 | PC.NURSE ---
Pt requests assistance to commode. Assist x 1 to commode to void. Dyspnea with exertion and room air saturation level upon return to bed 94-96%. Clear lungs throughout. No cough noted. Pt's eyes are open and pt is conversant with staff and expresses gratitude for care. Pt prefers right side lying position. Pinpoint open area right upper arm following removal of ekg adhesive sticker. Large purple bruise is present in same area as well as scattered purple bruises to BL UE's. Pinpoint open area cleansed with normal saline, dried with 4 x 4 and covered with small allevyn gentle border dressing. Pt denies chest pain, denies generalized pain. Offered tylenol and pt declined stating not needed. Hot blankets for comfort and hot tea per pt request. Reviewed MD's prog note from today which indicates will continue iv antibiotics. Dr. Pal in house and this was discussed with MD who states not placing pt on antibiotics.
[2017-11-05] MEDS: predniSONE 5 MG TABLET PO (20:03)
--- NOTE | 2017-11-05 23:14 | PC.NURSE ---
Conversant and cooperative, pleasant all evening shift. Easily engages staff in conversation. Denies pain, but is restless in bed and states unable to sleep. Administered tylenol to treat restlessness. Dyspnea with exertion, but not at rest. IV fluids infusing via right forearm iv site without difficulty.
[2017-11-06] VITALS (14 sets, daily range): BP systolic 126–162; BP diastolic 65–89; PULSE 77–98; RESP 14–20; TEMP 36.4–37.2; O2SAT 97–100
[2017-11-06] MEDS: ALBUTEROL/IPRATROPIUM 3 ML AMPUL INH ×3 (06:03→17:42)
[2017-11-06 06:39] LABS: Alanine Aminotransferase 80 IU/L (9-52); Albumin Globulin Ratio 1.4 (1.0-2.8); Alkaline Phosphatase 161 U/L (38-126); Aspartate Aminotransferase 38 IU/L (14-36); Bilirubin Total 0.5 mg/dL (0.2-1.3); Blood Urea Nitrogen 6 mg/dL (7-17); Calcium 8.3 mg/dL (8.4-10.2); Carbon Dioxide 23 mmol/L (22-32); Chloride 110 mmol/L (98-107); Cholesterol 233 mg/dL (140-199); Estimated Glomerular Filt Rate > 60.0 mL/min (>60); Globulin 2.2 g/dL (1.7-4.1); Glucose 247 mg/dL (80-110); HDL Cholesterol 45 mg/dL (40-60); HEMOLYSIS < 15 (0-50); LDL Cholesterol Calculated 129 mg/dL (<100); Potassium 4.4 mmol/L (3.4-5.1); Sodium 140 mmol/L (137-145); Total Protein 5.2 g/dL (6.3-8.2); Triglycerides 295 mg/dL (35-150)
[2017-11-06] MEDS: SODIUM CHLORIDE 0.9% 1,000 ML 100 ML IV (07:03)
[2017-11-06] MEDS: predniSONE 5 MG TABLET 15 MG PO (09:00)
[2017-11-06] MEDS: INSULIN ASPART 100 UNIT/ML INSULN PEN SUBCUT ×3 (09:05→16:57)
--- NOTE | 2017-11-06 10:18 | P.PN_ITS ---
Subjective Interval history: Nurse reports patient is more cooperative. One patient seen she complained of some ongoing problems with dyspnea on exertion and weakness CONSULTATION None PROCEDURES CT CHEST-11/03/2017 ULTRASOUND ABDOMEN-11/03/2017 CT ABDOMEN PELVIS-11/02/2017 Exam Vital Signs (past 8 hours): - 11/06/17 04:23 11/06/17 06:05 11/06/17 07:40 Temperature 97.9 F 97.9 F Pulse Rate 87 80 98 H Respiratory Rate 16 18 18 Blood Pressure 151/74 H 126/70 Pulse Oximetry 100 98 99 11/06/17 09:13 Temperature Pulse Rate Respiratory Rate Blood Pressure Pulse Oximetry 99 Oxygen Delivery Method Room Air Oxygen Flow Rate 0 Narrative Exam Narrative: General NAD HEENT normocephalic atraumatic extraocular movement was intact there was no scleral icterus fundi not viewed oropharynx clear Neck is supple without thyromegaly bruit struggling distention Respiratory clear to auscultation. No wheeze rhonchi were heard by this examiner Cardiovascular regular rhythm S1-S2 was normal neuroma sees rubs murmurs gallops present pulses are intact Gastrointestinal benign bowel sounds active Musculoskeletal full range of motion no clubbing edema or cyanosis Neurologic awake alert oriented x3 grossly nonfocal Objective Labs Result Diagrams: 11/05/17 09:53 11/06/17 06:08 Labs: Laboratory Results - last 24 hr 11/05/17 11/05/17 11/05/17 09:53 09:53 11:24 WBC 11.4 H RBC 3.30 L Hgb 10.9 L Hct 31.2 L MCV 94.4 MCH 33.0 MCHC 35.0 RDW 15.8 H Plt Count 97 L Neut % (Auto) Not Reportable Lymph % (Auto) Not Reportable [place] % (Auto) Not Reportable Eos % (Auto) Not Reportable Baso % (Auto) Not Reportable Total Counted 100 Seg Neutrophils % 67.0 Band Neutrophils % 14.0 H Lymphocytes % (Manual) 10.0 L Atypical Lymphs % 4.0 H Monocytes % (Manual) 5.0 Neutrophils # (Manual) 9234 H RBC Morphology Normal morphology Sodium 137 Potassium 3.9 Chloride 109 H Carbon Dioxide 22 BUN 4 L Creatinine 0.40 L Estimated GFR > 60.0 BUN/Creatinine Ratio 10.0 Glucose 220 H D Calcium 8.2 L Total Bilirubin 0.8 AST 44 H ALT 87 H Alkaline Phosphatase 149 H Total Protein 5.3 L Albumin 3.0 L Globulin 2.3 Albumin/Globulin Ratio 1.3 Triglycerides Cholesterol LDL Cholesterol, Calc HDL Cholesterol Hep Bs Antigen Negative Hepatitis C Antibody Negative 11/06/17 06:08 WBC RBC Hgb Hct MCV MCH MCHC RDW Plt Count Neut % (Auto) Lymph % (Auto) [place] % (Auto) Eos % (Auto) Baso % (Auto) Total Counted Seg Neutrophils % Band Neutrophils % Lymphocytes % (Manual) Atypical Lymphs % Monocytes % (Manual) Neutrophils # (Manual) RBC Morphology Sodium 140 Potassium 4.4 Chloride 110 H Carbon Dioxide 23 BUN 6 L Creatinine 0.50 L Estimated GFR > 60.0 BUN/Creatinine Ratio 12.0 Glucose 247 H Calcium 8.3 L Total Bilirubin 0.5 AST 38 H ALT 80 H Alkaline Phosphatase 161 H Total Protein 5.2 L Albumin 3.0 L Globulin 2.2 Albumin/Globulin Ratio 1.4 Triglycerides 295 H Cholesterol 233 H LDL Cholesterol, Calc 129 H HDL Cholesterol 45 Hep Bs Antigen Hepatitis C Antibody Assessment & Plan Plan: Assessment/Plan Narrative: 1. Healthcare associated pneumonia/ Loculated pleural effusion CT chest does not show any areas of infiltrate only bands of atelectasis. So ongoing problems with healthcare associated pneumonia is unlikely There for as stated in the note yesterday no antibiotics are required. Her pulmonary status remained stable with no increase in respiratory rate or increased work of breathing O2 sats are stable 2. Loculated pleural effusion No further workup required at this time only ongoing monitoring with as needed chest x-rays 3. COPD No acute respiratory symptoms at this time. She is on DuoNeb treatments q.6 hours. She is also on prednisone 15 mg p.o. b.i.d. and 5 mg q.h.s. and will begin to be weaned 4. diabetes mellitus type 2 Her glycemic control the past 24 hr has worsened with point of care glucose is 281, 281, 281, 247 I will start Lantus 15 units subcu q.h.s. she has previously not wanted insulin but because of her glucose elevations will need to start Lantus as mentioned 5. Elevated lactic acid Will follow-up of lactate [place] probably related to infection. Will follow up lactic acid 7. Elevated LFTs Patient has had an ultrasound which was unremarkable other than fatty liver. Her LFTs have improved since admission. Hepatitis serology I had ordered a CT of the abdomen and pelvis yesterday but the patient refused. Discussed this with her today and she again declines having CT of her abdomen and pelvis Will check LFTs in a.m. and coags DISPOSITION This morning patient did agree to going to a skilled facility for rehab. Quality VTE Deep Vein Thrombosis/Pulmonary Embolism Present on Admission: No
--- NOTE | 2017-11-06 12:14 | CM.DPC ---
Addendum entered by Gisselle Romero LPN 11/06/17 15:23: Met with pt as planned and she confirmed her awareness that she could not smoke in the facility. Said it was no problem. Spouse Wong was present along with his adult sons and a young grandson. Discussed the financial considerations of a medicaid application. Received confirmation from Wong that his resources were also very limited, had not always been so. Reassured all that this was not unusual and that the intent was to be helpful to the pt and family and help pt get any assist she is entitled to. He did note that he was a resident of [facility] but that his had kept her residency in [place]. Unclear if this will impact pt as she does now live with her here in [place] and has for some time. Have updated [facility]. Encouraged them to fill out zackary to see if eligible and will check in with them again tomorrow. P: remains: [facility] pending insurance authorization. Wednesday or >. Original Note: Addendum entered by Gisselle Romero LPN 11/06/17 13:12: [facility] has called back. She has found that this managed care plan out of [place] is managed by [employer]. [employer] is not open until Wednesday. She is sending on to her [employer] business office to proceed in obtaining the authorization. She notes that pt needs reminding that smoking cigarettes at the snf is not allowed. Pt is now advised of same. Original Note: DCP: continued: case received, EMR reviewed and discussed in morning Care Team meeting. reported that he had discussed his recommendation for snf care consideration with pt and that she was agreeable to same. OT and PT are seeing pt and recommend this as well. Met then with pt, introduced self and role. Pt is agreeable to snf plan and with consideration of a step down after snf to a chcf care setting that can support her needs going forward. Choice list: given and discussed. Pt with Medicare ADV/[employer] plan and is unclear if a network facility is needed or a single case agreement. Pt prefers a facility that would allow her to stay on chcf if need arose. [facility] need be. Discussed medicaid consideration. Pt with a very limited income , about $750.00 month but she does remain and is reluctant to have her husbands finances looked at. She does clarify that he was living in [place] and she remained in [place] until she needed care and they called him and told him to come and get me. He pays all the bills now. They live in a small at [place] outside of [place]. Every 3 weeks they relocate to another [facility] and after a week return to the [facility]. Pt's Wong (Travis Stokes) [phone] drives a truck but pt says it is extremely hard for her to get into it. Her PCP: Dr. Scott is in [place] and refills her medications but it's almost impossible to get to see her. Once pt is in the RV she is home bound and isolated. Pt says she has one daughter who is , no other children. Wong has 2 sons. Referral given to [facility] now with all of this explained. She agrees to accept if the authorization can be obtained and says this may not be able to be completed until Wednesday. She advises not to send yet to [facility] as this only makes the referral process more complicated. Pt is updated, given [facility] brochure. Dr. Pal is updated and aware that all may not be in place until at least Wednesday. He notes that is fine, this is the right d/c plan for her.
--- NOTE | 2017-11-06 12:37 | PT.IPTN ---
Current Diagnoses Pneumonia, unspecified organism (11/03/17) Physical Therapy Treatment Note M2 PT-IP Current Condition Start: 11/05/17 11:54 Freq: NEEDED Status: Active Protocol: Document 11/05/17 10:20 AB (Rec: 11/05/17 12:06 AB [id number]) Physical Therapy Current Condition Current Condition Evaluation Date 11/05/17 Treatment Diagnosis chest pain Onset Date 11/03/17 Precautions Other Precautions falls M3 PT-IP Subjective Start: 11/05/17 11:54 Freq: NEEDED Status: Active Protocol: Document 11/06/17 11:50 LJ (Rec: 11/06/17 12:37 LJ [id number]) Subjective Physical Therapy Visit Type Type Treatment Note Visit Start Time 11:50 Visit Stop Time 12:00 Total Visit Minutes 10 Physical Therapy Visit Comments Patient Comments Pt states she is too weak to do anything however also stated that she is able to get up onto the BSC but she gets winded. M4 PT-IP Mobility and Gait Start: 11/05/17 11:54 Freq: NEEDED Status: Active Protocol: Document 11/06/17 11:50 LJ (Rec: 11/06/17 12:37 LJ [id number]) PT-Bed Mobility Assessment Rolling Type of Rolling Bilateral PT-Transfer Assessment Comments Mobility Comments pt refused to sit up in bed. Cooperated in scooting to HOB using bridging and performed 5 bilat heel slides. M5 PT-IP Objective Assessments Start: 11/05/17 11:54 Freq: NEEDED Status: Active Protocol: Document 11/05/17 10:20 AB (Rec: 11/05/17 12:06 AB [id number]) Orientation Orientation/Cognition Level of Alertness Alert Orientation Name Safety Awareness Decreased Safety Awareness Memory Description Short Term Impaired Interim Controller Impaired Strength Lower Extremity Strength Assessment Bilaterally Impaired M6 PT-IP Treatment Start: 11/05/17 11:54 Freq: NEEDED Status: Active Protocol: Document 11/06/17 11:50 LJ (Rec: 11/06/17 12:37 LJ [id number]) Physical Therapy Treatment Exercises Exercises Ankle Pumps Gluteal Sets Heel Slides Education Education Provided Safety M7 PT-IP Assessment and Plan Start: 11/05/17 11:54 Freq: NEEDED Status: Active Protocol: Document 11/06/17 11:50 LJ (Rec: 11/06/17 12:37 LJ [id number]) PT Summary Assessment and Plan Potential Rehabilitation Potential Fair Summary Impairments Pain ROM Strength Balance Coordination Cognition Bed Mobility Transfers Gait Activity Tolerance Assessment Summary Pt refused to get out of bed or sit on side of bed.was able to perform a bridge scoot to HOB with ModA x 1 and rolling bilat with ModA. Will give the pt another attempt at treatment when arrives . Frequency of Treatment Frequency Of Treatment Once a Day Recommendations To Nursing Amount of Assist Needed 1 Person Assist Discharge Recommendations PT Discharge Recommendations SNF Rehab
--- NOTE | 2017-11-06 14:23 | OT.IP.TRT ---
Current Diagnoses Pneumonia, unspecified organism (11/03/17) Occupational Therapy Treatment Note M2 OT-IP Current Condition Start: 11/04/17 16:35 Freq: Status: Active Protocol: Document 11/05/17 12:33 [facility] (Rec: 11/05/17 12:48 [facility] [id number]) Occupational Therapy Current Condition Current Condition Evaluation Date 11/05/17 Treatment Diagnosis PNA, weakness Post Operative Precautions Other Precautions falls Weight Bearing Status Weight Bearing Status Weight Bear as Tolerated M3 OT- IP Subjective and Pain Start: 11/04/17 16:35 Freq: Status: Active Protocol: Document 11/06/17 14:22 [facility] (Rec: 11/06/17 14:23 [facility] [id number]) OT- Subjective Occupational Therapy Visit Type Type Patient Refusal Notes Pt refusing to get up at this time for therapy and states too tired. Pt states was able to get up with [employer] earlier.
--- NOTE | 2017-11-06 16:02 | PT.IPTN ---
Current Diagnoses Pneumonia, unspecified organism (11/03/17) Physical Therapy Treatment Note M2 PT-IP Current Condition Start: 11/05/17 11:54 Freq: NEEDED Status: Active Protocol: Document 11/05/17 10:20 AB (Rec: 11/05/17 12:06 AB [id number]) Physical Therapy Current Condition Current Condition Evaluation Date 11/05/17 Treatment Diagnosis chest pain Onset Date 11/03/17 Precautions Other Precautions falls M3 PT-IP Subjective Start: 11/05/17 11:54 Freq: NEEDED Status: Active Protocol: Document 11/06/17 14:50 LJ (Rec: 11/06/17 15:47 LJ [id number]) Subjective Physical Therapy Visit Type Type Treatment Note Visit Start Time 14:50 Visit Stop Time 15:00 Total Visit Minutes 10 Number of SIGNAL INTELLIGENCE/ELECTRONIC WARFARE Visits 2 Physical Therapy Visit Comments Patient Comments Pt found on BSC with ROAD PACKER OPERATOR. Pt had no gait belt on and stood using UEs without waiting to have a gait belt placed on her . Pt looked at this therapist and asked what do you want?' Therapist suggested ambulation around room and pt grabbed walker, told therapist not to place gait belt on her (she stated she didn't need it). Pt proceeded to walk briskly in [place] and back to the bed w /FWW. Pt sat on EOB and requested assistance with LLE to get back into bed. Pt very impulsive and angry. M4 PT-IP Mobility and Gait Start: 11/05/17 11:54 Freq: NEEDED Status: Active Protocol: Document 11/06/17 14:50 LJ (Rec: 11/06/17 15:47 LJ [id number]) PT-Bed Mobility Assessment Rolling Type of Rolling Roll to Right Level of Assist Standby Assistance Sit to Supine Sit to Supine Standby Assistance Bedrails PT-Transfer Assessment Sit to and From Stand Sit to and from Stand Standby Assistance Use of Upper Extremities Equipment Transfer Assistive Device Gait Belt Front Wheeled Walker Transfers Transfer Destination Bed Transfer Technique Stand Step Pivot Transfer Ability Level of Assist Standby Assistance Use of Upper Extremities Comments Mobility Comments Pt demonstrated sufficient strength to walk quickly in flexed position with little SOB. Did not want to cooperate but impulsively showed what I (she) can do by walking in a [place] beside the bed. She required [place] assistance with LLE to return to bed and was able to position self with use of rails. Gait Assessment Gait Gait Assistance Required: Standby Assistance Distance (Feet) (feet) 12 Assistive Devices Assistive Device None Gait Deviations General Gait Pattern Flexed Trunk Factors Limiting Gait Function Factors Limiting Gait Function Decreased Activity Tolerance Difficulty Following Directions Poor Safety Awareness Comments Gait Comments Pt stated she didn't need a gait belt (don't put that thing on me) and pushed her walker in front of her while walking in a [place] away from this therapist. Pt very impulsive and big fall risk. Unaware of safety. M5 PT-IP Objective Assessments Start: 11/05/17 11:54 Freq: NEEDED Status: Active Protocol: Document 11/05/17 10:20 AB (Rec: 11/05/17 12:06 AB [id number]) Orientation Orientation/Cognition Level of Alertness Alert Orientation Name Safety Awareness Decreased Safety Awareness Memory Description Short Term Impaired Snf Impaired Strength Lower Extremity Strength Assessment Bilaterally Impaired M6 PT-IP Treatment Start: 11/05/17 11:54 Freq: NEEDED Status: Active Protocol: Document 11/06/17 11:50 LJ (Rec: 11/06/17 12:37 LJ [id number]) Physical Therapy Treatment Exercises Exercises Ankle Pumps Gluteal Sets Heel Slides Education Education Provided Safety M7 PT-IP Assessment and Plan Start: 11/05/17 11:54 Freq: NEEDED Status: Active Protocol: Document 11/06/17 14:50 LJ (Rec: 11/06/17 15:47 LJ [id number]) PT Summary Assessment and Plan Potential Rehabilitation Potential Good Status of Condition at Evaluation Evolving Summary Impairments Balance Coordination Activity Tolerance Frequency of Treatment Frequency Of Treatment Once a Day Recommendations To Nursing Amount of Assist Needed 1 Person Assist Discharge Recommendations PT Discharge Recommendations SNF Rehab
[2017-11-06] MEDS: predniSONE 2.5 MG TABLET 5 MG PO (21:31)
[2017-11-06] MEDS: ALBUTEROL 2.5 MG/3 ML NEB (ADULT) INH (21:52)
[2017-11-07] VITALS (13 sets, daily range): BP systolic 134–167; BP diastolic 67–110; PULSE 74–107; RESP 16–22; TEMP 36.3–36.9; O2SAT 96–99
[2017-11-07 06:05] LABS: INR 0.9 (0.9-1.3); Prothrombin Time 9.9 SECONDS (10.1-12.7)
[2017-11-07 06:10] LABS: Alanine Aminotransferase 72 IU/L (9-52); Albumin 2.9 g/dL (3.5-5.0); Albumin Globulin Ratio 1.4 (1.0-2.8); Alkaline Phosphatase 186 U/L (38-126); Aspartate Aminotransferase 52 IU/L (14-36); Bilirubin Total 0.4 mg/dL (0.2-1.3); Blood Urea Nitrogen 8 mg/dL (7-17); Calcium 8.4 mg/dL (8.4-10.2); Carbon Dioxide 23 mmol/L (22-32); Chloride 109 mmol/L (98-107); Estimated Glomerular Filt Rate > 60.0 mL/min (>60); Globulin 2.1 g/dL (1.7-4.1); Glucose 234 mg/dL (80-110); HEMOLYSIS 20 (0-50); Potassium 3.8 mmol/L (3.4-5.1); Sodium 141 mmol/L (137-145)
[2017-11-07] MEDS: ALBUTEROL/IPRATROPIUM 3 ML AMPUL INH ×3 (07:24→18:59)
[2017-11-07] MEDS: predniSONE 10 MG TABLET 30 MG PO (08:15)
[2017-11-07] MEDS: INSULIN ASPART 100 UNIT/ML INSULN PEN SUBCUT ×3 (08:18→17:23)
--- NOTE | 2017-11-07 10:13 | PM.PN.1 ---
Subjective Interval history: There been no new events no new problems in the prior 24 hr CONSULTATION None PROCEDURES CT CHEST-11/03/2017 ULTRASOUND ABDOMEN-11/03/2017 CT ABDOMEN PELVIS-11/02/2017 Blood cultures x2 from 11/03/2017 are no growth x4 days Exam Vital Signs (past 8 hours): - 11/07/17 06:11 11/07/17 07:25 11/07/17 08:20 Temperature 98.4 F Pulse Rate 82 89 Respiratory Rate 16 16 Blood Pressure 134/74 Pulse Oximetry 99 99 99 11/07/17 08:33 Temperature 97.5 F L Pulse Rate 92 H Respiratory Rate 20 Blood Pressure 143/73 H Pulse Oximetry 99 Fraction of Inspired Oxygen 21 Oxygen Delivery Method Room Air Oxygen Flow Rate 0 Narrative Exam Narrative: General NAD HEENT normocephalic atraumatic extraocular movement was intact there was no scleral icterus fundi not viewed oropharynx clear Neck is supple without thyromegaly bruit struggling distention Respiratory clear to auscultation. No wheeze rhonchi were heard by this examiner Cardiovascular regular rhythm S1-S2 was normal. There were no rubs murmurs gallops present pulses are intact Gastrointestinal benign bowel sounds active Musculoskeletal full range of motion no clubbing edema or cyanosis Neurologic awake alert oriented x3 grossly nonfocal Objective Labs Result Diagrams: 11/05/17 09:53 11/07/17 05:43 Labs: Laboratory Results - last 24 hr 11/07/17 11/07/17 05:43 05:43 PT 9.9 L INR 0.9 Sodium 141 Potassium 3.8 Chloride 109 H Carbon Dioxide 23 BUN 8 Creatinine 0.40 L Estimated GFR > 60.0 BUN/Creatinine Ratio 20.0 Glucose 234 H Calcium 8.4 Total Bilirubin 0.4 AST 52 H ALT 72 H Alkaline Phosphatase 186 H Total Protein 5.0 L Albumin 2.9 L Globulin 2.1 Albumin/Globulin Ratio 1.4 Assessment & Plan Plan: Assessment/Plan Narrative: 1. Healthcare associated pneumonia/ Loculated pleural effusion THERE IS NO EVIDENCE OF HEALTHCARE ASSOCIATED PNEUMONIA. THE CHANGES ON X-RAY ARE RELATED TO BANDS OF ATELECTASIS. THE CT SCAN DID NOT SHOW ANY AREAS OF INFILTRATE ONLY THE BANDS OF ATELECTASIS MENTIONED. Her pulmonary status remained stable with no increase in respiratory rate or increased work of breathing O2 sats are stable 2. Loculated pleural effusion No further workup required at this time only ongoing monitoring with as needed chest x-rays 3. COPD No acute respiratory symptoms at this time. She is on DuoNeb treatments q.6 hours. She is also on prednisone 30 MG Q.A.M. 4. diabetes mellitus type 2 Her glycemic control is less than optimally controlled and point of care glucose are 246, 278, 320, 2011. I will start Lantus 15 units q.h.s. 7. Elevated LFTs Patient has had an ultrasound which was unremarkable other than fatty liver and CT abdomen/pelvis only revealed mild hepatomegaly with hepatic steatosis. Her LFTs have improved since admission. Hepatitis serology Her AST has decreased from 142 on admission to 52 today, her ALT has decreased from 169 on admission to 79 today and her alk-phos is decreased from 04/03 on admission to 186 today. Her PT INR are unremarkable DISPOSITION Case management is working on discharge to [facility] Quality VTE Deep Vein Thrombosis/Pulmonary Embolism Present on Admission: No
[2017-11-07] MEDS: ACETAMINOPHEN 325 MG TABLET 650 MG PO ×2 (12:18→23:43)
--- NOTE | 2017-11-07 13:47 | P.DS_ITS ---
History of Present Illness <London Pal MD - Last Filed: 11/21/17 15:27> Chief complaint: Chest pain Discharge Providers <London Pal MD - Last Filed: 11/21/17 15:27> Date of admission: 11/03/17 05:35 Consults: 11/03/17 11:33 Consult to Respiratory Therapy Evaluate & Treat Comment: Physician Instructions: Evaluate and treat 11/04/17 14:18 Consult to Occupational Therapy Evaluate & Treat Comment: Physician Instructions: Evaluate and treat Consult to Physical Therapy Evaluate & Treat Comment: Physician Instructions: Evaluate and Treat Discharge provider: London Pal MD Summary <London Pal MD - Last Filed: 11/21/17 15:27> Discharge Diagnosis: ADMISSION DIAGNOSIS 1. SHORTNESS OF BREATH PROBABLY SECONDARY TO COPD 2. ABNORMAL LFTS 3. FATTY LIVER/HEPATIC STEATOSIS 4. DEBILITY CHRONIC MEDICAL PROBLEMS 1. LOCULATED PLEURAL EFFUSION 2. COPD AND CONTINUED SMOKER 3. CHRONIC STEROID THERAPY--PREFERS STEROID DOSES OF 15 MG B.I.D. AND 5 MG AT HS 4. DIABETES NOTED BORDERLINE ACCORDING TO PATIENT 5. ESSENTIAL HYPERTENSION CONSULTATIONS PT/OT PROCEDURES CT CHEST-11/03/2017 ULTRASOUND ABDOMEN-11/03/2017 CT ABDOMEN PELVIS-11/02/2017 Blood cultures x2 from 11/03/2017 are no growth x4 days SEROLOGY FOR HEPATITIS: --Hepatitis A: Pending --Hepatitis-B: Hepatitis-B surface antigen negative, hepatitis-B core total and hepatitis-B core IgM antibody pending --Hepatitis C: Negative Hospital Course: 1. Healthcare associated pneumonia/ Loculated pleural effusion On admission there was initial concern for healthcare associated pneumonia. She has had no cough/sputum production. She has remained afebrile and white count is normal. THERE IS NO EVIDENCE OF HEALTHCARE ASSOCIATED PNEUMONIA. THE CHANGES ON X-RAY ARE RELATED TO BANDS OF ATELECTASIS. THE CT SCAN DID NOT SHOW ANY AREAS OF INFILTRATE ONLY THE BANDS OF ATELECTASIS MENTIONED. Her pulmonary status remained stable with no increase in respiratory rate or increased work of breathing and O2 sats are stable 2. Loculated pleural effusion No further workup required at this time only ongoing monitoring with as needed chest x-rays 3. COPD No acute respiratory symptoms at this time. She is on DuoNeb treatments q.6 hours. She is also on prednisone 15 mg p.o. b.i.d. and 5 mg p.o. Q p.o. 4. diabetes mellitus type 2 Her glycemic control has been less than optimally controlled. This is related to her chronic steroid use. Lantus 15 units q.h.s. was started 7. Elevated LFTs Patient has had an ultrasound which was unremarkable other than fatty liver and CT abdomen/pelvis only revealed mild hepatomegaly with hepatic steatosis. Her LFTs have improved since admission. Hepatitis serology for hepatitis B surface antigen and hepatitis C are unremarkable. However hepatitis a and other markers for hepatitis B are pending Her AST has decreased from 142 on admission to 52 11/07/2017, her ALT has decreased from 169 on admission to 79 11/07/2017 and her alk-phos is decreased from 0203 on admission to 186 11/07/2017. Her PT INR are unremarkable Status at Discharge Cognitive/behavioral status at discharge: Improved. At 1st she was reluctant to participate in her care. But now she is eager to participate in her care and to go to assisted facility for rehab Overall status at discharge: patient is not back to baseline Exam <London Pal MD - Last Filed: 11/21/17 15:27> Vital Signs (past 8 hours): - 11/07/17 06:11 11/07/17 07:25 11/07/17 08:20 Temperature 98.4 F Pulse Rate 82 89 Respiratory Rate 16 16 Blood Pressure 134/74 Pulse Oximetry 99 99 99 11/07/17 08:33 11/07/17 12:00 11/07/17 12:18 Temperature 97.5 F L 97.4 F L Pulse Rate 92 H 99 H 86 Respiratory Rate 20 20 18 Blood Pressure 143/73 H 142/78 H Pulse Oximetry 99 99 96 Fraction of Inspired Oxygen 21 Oxygen Delivery Method Room Air Oxygen Flow Rate 0 Narrative Exam Narrative: Physical exam is unchanged <Dory Licona MD - Last Filed: 11/09/17 09:58> Narrative Exam Narrative: Patient denies shortness of breath HEENT: NC/AT, EOMI Lungs: decreased but clear to auscultation CV: RRR nl Sl S2 2/6 [place] ABD: Soft/ non tender non distended Ext: no edema Objective <London Pal MD - Last Filed: 11/21/17 15:27> Labs Result Diagrams: 11/05/17 09:53 11/07/17 05:43 Labs: Laboratory Results - last 24 hr 11/07/17 11/07/17 05:43 05:43 PT 9.9 L INR 0.9 Sodium 141 Potassium 3.8 Chloride 109 H Carbon Dioxide 23 BUN 8 Creatinine 0.40 L Estimated GFR > 60.0 BUN/Creatinine Ratio 20.0 Glucose 234 H Calcium 8.4 Total Bilirubin 0.4 AST 52 H ALT 72 H Alkaline Phosphatase 186 H Total Protein 5.0 L Albumin 2.9 L Globulin 2.1 Albumin/Globulin Ratio 1.4 Discharge Plan Discharge Plan Patient Disposition: SNF Other facility: SHE WILL BE DISCHARGED TO SNF FOR ONGOING REHAB[facility] Transportation: [facility] I certify the postop hospital assisted care is medically necessary on a continuing basis for any conditions for which he/ she received care during this hospitalization.: Yes The receiving facility has agreed to accept transfer and provide medical treatment.: Yes Discharge Med Rec/Prescriptions Prescriptions: New insulin aspart U-100 [Novolog Flexpen U-100 Insulin] 100 unit/mL Insulin Pen subcut AC Qty: 1 RF: 0 insulin glargine [Lantus Solostar U-100 Insulin] 100 unit/mL (3 mL) Insulin Pen 15 unit subcut BEDTIME Qty: 1 RF: 0 Continue albuterol sulfate 2.5 MG/3 ML solution for nebulization 3 ml INH Q4HP PRNQty: 30 RF: 0 albuterol sulfate [ProAir HFA] 90 mcg/actuation Hfa Aerosol Inhaler 1 puff INHALATION Q4-6H PRN (Reason: Shortness Of Breath Or Wheezing) RF: 0 prednisone 10 mg Tablet 15 mg PO BID RF: 0 prednisone 5 mg Tablet 5 mg PO BEDTIME RF: 0 Discontinued albuterol sulfate [Ventolin HFA] 90 MCG/PUFF HFA aerosol inhaler 2 puff INH Q4HP PRNQty: 5 RF: 0 Provider Discharge Instructions Diet: Carb-consistent/Diabetic Liquid consistency: Normal/Thin Food texture: Regular Activity: As tolerated Oxygen: as needed Special Rehabilitation Services Reason for rehabilitation: Recovery r/t decondition Rehab type: Physical therapy and Occupational therapy Restrictions to mobility: None Visit Report/Discharge Packet Instructions: DI for Chronic Obstructive Pulmonary Disease, How to Prevent Falls Discharge Data Attending Provider: Primitivo Fairbanks Admit Date/Time: 11/03/17 05:35 Discharges patient from system. Discharge Date/Time: 11/09/17 13:50 Quality <London Pal MD - Last Filed: 11/21/17 15:27> VTE Deep Vein Thrombosis/Pulmonary Embolism Present on Admission: No
[2017-11-07] MEDS: INSULIN NPH 100 UNIT/ML VIAL 15 UNIT SUBCUT (14:26)
[2017-11-07] MEDS: predniSONE 5 MG TABLET 15 MG PO (16:11)
--- NOTE | 2017-11-07 16:17 | CM.DPC ---
DCP: continued: Spoke with Yuni this morning/[facility]. She has confirmed the day benefit and is hopeful she will have an decision tomorrow morning from the managed care company. She will only be at the facility in the morning...is aware that another d/c special events planner will be here tomorrow, at this time scheduled: Lisha and she will reach out to her by phone tomorrow. Checked in with pt. Mary and medicaid zackary still untouched in room. Assured pt that DCP team would be happy to assist her and her with the application and she could still refuse it if she was uncomfortable with the final terms. She does continue to wish snf if this is authorized but knows the days will be limited without the medicaid backup. P: [facility] by w/carolyn lujan if auth is received. Dr. Pal is aware. Follow closely
--- NOTE | 2017-11-07 16:21 | PT.IPTN ---
Current Diagnoses Pneumonia, unspecified organism (11/03/17) Physical Therapy Treatment Note M2 PT-IP Current Condition Start: 11/05/17 11:54 Freq: NEEDED Status: Active Protocol: Document 11/07/17 16:21 RCC (Rec: 11/07/17 16:26 [facility] [id number]) Physical Therapy Current Condition Current Condition Evaluation Date 11/05/17 Treatment Diagnosis chest pain Onset Date 11/03/17 Precautions Other Precautions falls Weight Bearing Status Weight Bearing Status Weight Bear as Tolerated M3 PT-IP Subjective Start: 11/05/17 11:54 Freq: NEEDED Status: Active Protocol: Document 11/07/17 16:21 RCC (Rec: 11/07/17 16:26 [facility] [id number]) Subjective Physical Therapy Visit Type Type Treatment Note Visit Start Time 16:10 Visit Stop Time 16:21 Total Visit Minutes 11 Number of SMALL PRODUCTS ASSEMBLER Visits 0 Physical Therapy Visit Comments Patient Comments pt hesitant but agreeable to get OOB. M4 PT-IP Mobility and Gait Start: 11/05/17 11:54 Freq: NEEDED Status: Active Protocol: Document 11/07/17 16:21 RCC (Rec: 11/07/17 16:26 [facility] [id number]) PT-Bed Mobility Assessment Supine to Sit Supine to Sit Minimal Assistance Sit to Supine Sit to Supine Minimal Assistance Scooting Scooting to Edge of Bed Standby Assistance PT-Transfer Assessment Sit to and From Stand Sit to and from Stand Standby Assistance Equipment Transfer Assistive Device Front Wheeled Walker Transfers Transfer Destination Bed Transfer Technique Stand Step Pivot Transfer Ability Level of Assist Standby Assistance Comments Mobility Comments Refused gait belt. Gait Assessment Gait Gait Assistance Required: Contact Guard Assist Distance (Feet) (feet) 10 Assistive Devices Assistive Device Front Wheeled Walker Gait Deviations General Gait Pattern Decreased Stride Length Decreased Feet Clearance Flexed Trunk Lateral Trunk Lean Wide Based Gait Factors Limiting Gait Function Factors Limiting Gait Function Decreased Activity Tolerance Decreased Strength Poor Balance Comments Gait Comments fatigued highly after 10 ft. Feet outside of base of FWW. M5 PT-IP Objective Assessments Start: 11/05/17 11:54 Freq: NEEDED Status: Active Protocol: Document 11/05/17 10:20 AB (Rec: 11/05/17 12:06 AB [id number]) Orientation Orientation/Cognition Level of Alertness Alert Orientation Name Safety Awareness Decreased Safety Awareness Memory Description Short Term Impaired Results Engineer Impaired Strength Lower Extremity Strength Assessment Bilaterally Impaired M6 PT-IP Treatment Start: 11/05/17 11:54 Freq: NEEDED Status: Active Protocol: Document 11/06/17 11:50 LJ (Rec: 11/06/17 12:37 LJ [id number]) Physical Therapy Treatment Exercises Exercises Ankle Pumps Gluteal Sets Heel Slides Education Education Provided Safety M7 PT-IP Assessment and Plan Start: 11/05/17 11:54 Freq: NEEDED Status: Active Protocol: Document 11/07/17 16:21 RCC (Rec: 11/07/17 16:26 [facility] [id number]) PT Summary Assessment and Plan Summary Progress Towards Goals Slow Progress due to Activity Tolerance Assessment Summary Pt does not tolerated mobility well, fatiguing with gait after 10 ft. Her impaired posture also increases her risk for falls. She notes that her home is not big enough to have a walker (mobile home). At this time, the pt's activity tolerance is severely limited, and likely would worsen at home if not continuing to advance her mobility. She is not able to ambulate safe household distances at this time, and would greatly benefit from SNF rehabilitation upon d/c to progress activity tolerance safely to improve function and safety to then return home. Goals Bed Mobility Goal Minimal Assistance Transfer Goal Minimal Assistance Gait Goal Minimal Assistance Gait Distance 50 Other Goals up/down 4 steps with L rail ascending; up/down 3 steps without rails Frequency of Treatment Frequency Of Treatment Once a Day Treatment Plan Other Recommendations and Next Treatment prog. gait, stair training if Focus able Recommendations To Nursing Amount of Assist Needed 1 Person Assist Discharge Recommendations PT Discharge Recommendations SNF Rehab
[2017-11-07] MEDS: predniSONE 5 MG TABLET PO (20:33)
[2017-11-07] MEDS: INSULIN GLARGINE 100 UNIT/ML 3ML PEN 15 UNIT SUBCUT (20:34)
--- NOTE | 2017-11-07 21:32 | PC.NURSE ---
SHIFT NOTE pt with elevated blood sugars this shift. pt seen eating pizza and frequently requesting to have soda to drink. pt states not understanding why blood sugars are so high. breath sounds clear but diminished at rest, expiratory wheezing with activity. pt very SOB with activity when transferring to BSC. call light within reach.
[2017-11-08] VITALS (11 sets, daily range): BP systolic 123–159; BP diastolic 68–88; PULSE 84–98; RESP 16–20; TEMP 36.2–37; O2SAT 94–99
[2017-11-08] MEDS: ALBUTEROL/IPRATROPIUM 3 ML AMPUL INH ×3 (06:27→17:32)
[2017-11-08] MEDS: INSULIN ASPART 100 UNIT/ML INSULN PEN SUBCUT ×3 (08:11→19:03)
[2017-11-08] MEDS: predniSONE 5 MG TABLET 15 MG PO ×2 (08:11→16:22)
--- NOTE | 2017-11-08 10:37 | CM.DPC ---
DCP Cont: Called [facility] authorization, and consulted with uYni at [facility], stated they are still trying to approve for a one time contract. Did get in touch with Rhiannon at [facility], and stated that patient may be approved, even though [place]. Stated that she would speak to her mail delivery supervisor and let her know. If patient is approved and covered, can be discharged today. Left updated message with Bryson at [facility], for he is in for Yuni. P: Await call back from Ina regarding approval of out of network for patient. Felicia Flores RN/Homeopathic Doctor
--- NOTE | 2017-11-08 13:02 | CM.DPC ---
DCP Cont: Received call back from Rhiannon at [facility], stated that patient is approved today. Gave refererence/auth number of [id number]. Called Bryson at [facility]. Stated that he has to review clinical notes. Faxed clinical notes and PASSR. Will call back and let us know if they can accept her today, let him know that insurance is authorizing for today. Will consult with hospitalist for discharge orders as soon as [facility] confirms. P: Patient is to go to [facility] for skilled rehab. Continue to coordinate with Bryson at [facility]. Felicia Flores RN/Adhesive Primer
--- NOTE | 2017-11-08 13:08 | PM.PN.1 ---
Subjective Date Patient Seen: 11/08/17 Interval history: Patient reports breathing has improved at rest. She notes she gets short of breath with minimal activity She is awaiting transfer to a SNF for ongoing rehabilitation Exam Vital Signs (past 8 hours): - 11/08/17 06:30 11/08/17 08:00 11/08/17 08:31 Temperature 97.3 F L Pulse Rate 88 98 H Respiratory Rate 16 16 Blood Pressure 146/77 H Pulse Oximetry 98 96 96 Fraction of Inspired Oxygen 21 Oxygen Delivery Method Room Air Oxygen Flow Rate 0 Narrative Exam Narrative: Lungs: Decreased breath sounds bilaterally but clear to auscultation CV: RRR nl Sl S2 Abd: Soft/ non tender/ non distended Ext: no edema Objective Labs Result Diagrams: 11/05/17 09:53 11/07/17 05:43 Assessment & Plan (1) Acute and chronic respiratory failure: Problem details: Continue oxygen, nebulizers, antibiotics Current visit: Yes Status: Acute (2) Generalized weakness: Problem details: Continue PT/ OT Current visit: Yes Status: Acute (3) Pneumonia: Problem details: Antibiotics Qualifiers: Aspiration pneumonia type: Laterality: right Lung location: lower lobe of lung Pneumonia type: due to unspecified organism Qualified Code(s): J18.1 - Lobar pneumonia, unspecified organism Current visit: Yes Status: Acute (4) COPD (chronic obstructive pulmonary disease): Problem details: As above Qualifiers: COPD type: COPD with acute lower respiratory infection Chronic bronchitis type: Emphysema type: Qualified Code(s): J44.0 - Chronic obstructive pulmonary disease with acute lower respiratory infection Current visit: Yes Status: Acute Quality VTE Deep Vein Thrombosis/Pulmonary Embolism Present on Admission: No
--- NOTE | 2017-11-08 13:49 | CM.DPC ---
DCPCont: Spoke with Bryson at [facility], faxed 29 pages of clinicals and PASSR which he received. They are reviewing. Have not yet received the green light for discharge. Called insurance back, spoke with Mandie, stated patient is approved for 3 days, if does not discharge by , would need to start over with referral. Will continue to try for discharge today and await response from Bryson. Then, will consult with hospitalist for discharge. P: Continue to follow up with [facility] on plan, then, consult with hospitalist for discharge orders if they can take her today. Felicia Flores RN/Veterinary Inspector
--- NOTE | 2017-11-08 16:03 | PT.IPTN ---
Current Diagnoses Lobar pneumonia, unspecified organism (11/03/17) Pneumonia, unspecified organism (11/03/17) Chronic obstructive pulmonary disease with acute lower respiratory infection (11/03/17) Acute and chronic respiratory failure, unspecified whether with hypoxia or hypercapnia (11/03/17) Weakness (11/03/17) Physical Therapy Treatment Note M2 PT-IP Current Condition Start: 11/05/17 11:54 Freq: NEEDED Status: Active Protocol: Document 11/07/17 16:21 RCC (Rec: 11/07/17 16:26 [facility] [id number]) Physical Therapy Current Condition Current Condition Evaluation Date 11/05/17 Treatment Diagnosis chest pain Onset Date 11/03/17 Precautions Other Precautions falls Weight Bearing Status Weight Bearing Status Weight Bear as Tolerated M3 PT-IP Subjective Start: 11/05/17 11:54 Freq: NEEDED Status: Active Protocol: Document 11/08/17 16:02 LJ (Rec: 11/08/17 16:03 LJ [id number]) Subjective Physical Therapy Visit Type Type Patient Refusal Notes Pt stated that she thought she was leaving today and wanted to save her strength for the move. M4 PT-IP Mobility and Gait Start: 11/05/17 11:54 Freq: NEEDED Status: Active Protocol:
--- NOTE | 2017-11-08 16:57 | OT.IP.TRT ---
Current Diagnoses Lobar pneumonia, unspecified organism (11/03/17) Pneumonia, unspecified organism (11/03/17) Chronic obstructive pulmonary disease with acute lower respiratory infection (11/03/17) Acute and chronic respiratory failure, unspecified whether with hypoxia or hypercapnia (11/03/17) Weakness (11/03/17) Occupational Therapy Treatment Note M2 OT-IP Current Condition Start: 11/04/17 16:35 Freq: Status: Active Protocol: Document 11/05/17 12:33 [facility] (Rec: 11/05/17 12:48 [id number] Occupational Therapy Current Condition Current Condition Evaluation Date 11/05/17 Treatment Diagnosis PNA, weakness Post Operative Precautions Other Precautions falls Weight Bearing Status Weight Bearing Status Weight Bear as Tolerated M3 OT- IP Subjective and Pain Start: 11/04/17 16:35 Freq: Status: Active Protocol: Document 11/08/17 16:42 [facility] (Rec: 11/08/17 16:57 [facility] [id number]) OT- Subjective Occupational Therapy Visit Type Type Treatment Note Visit Start Time 16:15 Visit Stop Time 16:35 Total Visit Minutes 20 Occupational Therapy Visit Comments Patient Comments Spoke at length the importance of participating in therapy and just doing what she is capable of doing. Pt had good understanding to try to participate daily in therapy even if it is just working on bed mobility needs. Pt states will try to shower tomoorow. OT Pain Assessment Pain When Pain Assessed At Rest Pain Present Pain Present Pain Reported M4 OT- IP ADL's Start: 11/04/17 16:35 Freq: Status: Active Protocol: Document 11/05/17 12:33 [facility] (Rec: 11/05/17 12:48 [facility] [id number]) OT ADL-Toileting General Evaluation Toileting Ability Minimal Assistance Areas Needing Assistance Manage Clothing Devices Toileting Assistive Devices Commode Comments OT Toileting Comments After set-up , pt needing lots of encouragement to do own pericare needs. CGA for balance while leaning forwards . M5 OT- IP IADL's Start: 11/04/17 16:35 Freq: Status: Active Protocol: Document 11/05/17 12:33 [facility] (Rec: 11/05/17 12:48 [facility] [id number]) OT-Instrumental Activities of Daily Living Home Safety Awareness Awareness of Need for Assistance at Home Decreased Awareness Medication Management Medication Management Caregiver Administers Money Management Money Management Caregiver Provides Assistance Meal Preparation Meal Preparation Caregiver Provides Assist Baler Operator Baler Operator Caregiver Provides Assist Driving Driving Caregiver Provides Assist M6 OT- IP Functional Cognition Start: 11/04/17 16:35 Freq: Status: Active Protocol: Document 11/08/17 16:42 [facility] (Rec: 11/08/17 16:57 [facility] [id number]) Cognitive Factors Limiting Selfcare Function Cognitive Ability Level of Alertness Alert Patient Orientation Name Place Situation Attention Span Ability Capable of Focused Attention Capable of Sustained Attention Ability to Follow Commands Able to Follow One Step Commands M7 OT- IP Mobility and Balance Start: 11/04/17 16:35 Freq: Status: Active Protocol: Document 11/08/17 16:42 [facility] (Rec: 11/08/17 16:57 [facility] [id number]) OT- Bed Mobility Assessment Rolling Type of Rolling Roll to Left Level of Assistance Moderate Assistance Supine to Sit Supine to Sit Assist Moderate Assistance Sit to Supine Sit to Supine Assist Moderate Assistance Scooting Scooting to Edge of Bed Moderate Assistance OT-Transfer Assessment Sit to and From Stand Sit to and from Stand Moderate Assistance Transfers Transfer Ability Moderate Assistance Devices Transfer Assistive Devices Gait Belt Comments Mobility Comments Pt having to lean on FWW to get up and also having to pull on therapist to get into anterior tilt to stand. Once standing CGA with FWW to walk short distance in the room. OT- Balance Assessment Sitting Balance and Reactions Static Sitting Balance Ability Good Dynamic Sitting Balance Ability Fair Standing Balance and Reactions Static Standing Balance Ability Poor Dynamic Standing Balance Ability Poor M8 OT- IP Objective Assessments Start: 11/04/17 16:35 Freq: Status: Active Protocol: Document 11/05/17 12:33 [facility] (Rec: 11/05/17 12:48 [facility] [id number]) OT Gross Range of Motion Upper Extremity Range of Motion Assessment Bilaterally Impaired OT Strength Upper Extremity Strength Assessment Bilaterally Impaired Comments Strength Comments Pt due to fatigue and weakness needing assist for functional mobility. Strength 3-/5 to 3+ /5. M9 OT- IP Assessment and Plan Start: 11/04/17 16:35 Freq: Status: Active Protocol: Document 11/08/17 16:42 [facility] (Rec: 11/08/17 16:57 [facility] [id number]) OT Summary Assessment and Plan Potential Rehabilitation Potential Fair Analytic Complexity at Evaluation Moderate Summary OT Impairments Pain Strength Balance Functional Cognition Functional Mobility Grooming Dressing Toileting Bathing Toilet Transfers Shower Transfers Progress Towards Goals Slow Progress due to Pain Slow Progress due to Medical Issues Slow Progress due to Activity Tolerance Slow Progress due to Cognition Assessment Summary Pt now more open and motivated to participate in therapy more as wants to get stronger and do more for herself. Pt coughing with liquids, nursing also present and would benefit from TRACK CAR OPERATOR eval. Goals Days to Meet Goals 5 Frequency of Treatment Frequency Of Treatment Once a Day Treatment Plan OT Treatment Plan ADL Training Functional Cognition Training Functional Mobility Patient/Family Education Discharge Planning Other Treatment Recommendations and Next Shower Treatment Focus Discharge Recommendations OT Discharge Recommendations SNF Rehab Home Equipment Needs [facility]
[2017-11-08] MEDS: INSULIN GLARGINE 100 UNIT/ML 3ML PEN 15 UNIT SUBCUT (21:25)
[2017-11-08] MEDS: predniSONE 5 MG TABLET PO (21:26)
[2017-11-08] MEDS: ACETAMINOPHEN 325 MG TABLET 650 MG PO (22:23)
--- NOTE | 2017-11-08 22:59 | PC.NURSE ---
PM Shift pt AO and pleasant. A bit demanding at start of shift, but the LIBRARY HISTORIAN and I were able to put into place some expectations for the patient. At start of shift, pt was working with OT and had difficultly swallowing Tylenol. Patient stated she has always had swallowing issues since she was a kid, when asked why she stated I don't like the way pop bubbles feeling in my throat. Patient needs to throw head back in order to swallow, I asked her to try and tuck her head instead, pt stated it was more difficult to swallow with head tucked. Patient coughed after swallowing. Patient appropriate for dinner meal and swallowing Tylenol later in shift.
[2017-11-09 01:04] VITALS: O2SAT 99
--- NOTE | 2017-11-09 01:05 | PC.NURSE ---
Addendum entered by Aiyana Durand R.N. 11/09/17 06:15: Slept most of shift. Does complain of 7/10 bilateral leg pain but requests only Tylenol; did not want anything stronger so given 650mg of Tylenol. Refused ordered Protonix stating she don't need that despite explanations as to purpose of med. Original Note: Patient is oriented except to day of month and town. Breath sounds CTA with RA sat of 99%. HRR. Denies nausea. BT hypoactive; abdomen soft. Denies dysuria, frequency, urgency or incontinence. Gets up to C with walker and 1 assist due to generalized weakness. Denies pain at present time. Bruising noted on all extremites; skin fragile related to use of Prednisone. Able to turn herself but prefers to lie on right side. Chronic bilateral foot neuropathy unchanged. Fall risk score is high as patient reports multiple falls in past 3 months; bed alarm activated.
[2017-11-09 03:00] VITALS: BP 151/76; PULSE 69; RESP 18; TEMP 36.7; O2SAT 97
[2017-11-09] MEDS: ACETAMINOPHEN 325 MG TABLET 650 MG PO (06:06)
[2017-11-09 06:35] VITALS: PULSE 89; RESP 16; O2SAT 95
[2017-11-09] MEDS: ALBUTEROL/IPRATROPIUM 3 ML AMPUL INH ×2 (06:35→11:48)
[2017-11-09 07:30] VITALS: BP 148/80; PULSE 85; RESP 17; TEMP 36.6; O2SAT 97; O2SAT 98
[2017-11-09] MEDS: predniSONE 5 MG TABLET 15 MG PO (09:05)
[2017-11-09] MEDS: INSULIN ASPART 100 UNIT/ML INSULN PEN SUBCUT (09:06)
--- NOTE | 2017-11-09 09:20 | PC.NURSE ---
Addendum entered by Melvi Dent R.N. 11/09/17 13:57: Report given to Shyann at [facility] at 1329 on current pt status. All questions answered. [facility] personnel present to drive to [facility]. Pt's Wong also present carrying pt's personal belongings. States has all items. Discharge packet given to school bus driver, no prescriptions per Dr. Licona. PIV removed from right FA. Pt assisted into wheelchair by [employer]ADER, pt left unit in no distress via wheelchair at 1350. Original Note: Day Shift- Spoke with Dr. Licona at 0915, aware of pt refusing scheduled Enoxaparin inj, spoke with pt regarding BLE ROM exercises and ankle pumps. ordered Calf SCD's and pt agreeable to use. Awaiting to hear from [facility] for acceptance for possible discharge today.
--- NOTE | 2017-11-09 11:02 | OT.IP.TRT ---
Current Diagnoses Lobar pneumonia, unspecified organism (11/03/17) Pneumonia, unspecified organism (11/03/17) Chronic obstructive pulmonary disease with acute lower respiratory infection (11/03/17) Acute and chronic respiratory failure, unspecified whether with hypoxia or hypercapnia (11/03/17) Weakness (11/03/17) Occupational Therapy Treatment Note M2 OT-IP Current Condition Start: 11/04/17 16:35 Freq: Status: Active Protocol: Document 11/05/17 12:33 [facility] (Rec: 11/05/17 12:48 [facility] [id number]) Occupational Therapy Current Condition Current Condition Evaluation Date 11/05/17 Treatment Diagnosis PNA, weakness Post Operative Precautions Other Precautions falls Weight Bearing Status Weight Bearing Status Weight Bear as Tolerated M3 OT- IP Subjective and Pain Start: 11/04/17 16:35 Freq: Status: Active Protocol: Document 11/09/17 10:56 [facility] (Rec: 11/09/17 11:01 [facility] [id number]) OT- Subjective Occupational Therapy Visit Type Type Treatment Note Visit Start Time 10:00 Visit Stop Time 10:55 Total Visit Minutes 55 Occupational Therapy Visit Comments Patient Comments Pt agreeable to shower. OT Pain Assessment Pain When Pain Assessed At Rest Pain Present Pain Present Pain Reported M4 OT- IP ADL's Start: 11/04/17 16:35 Freq: Status: Active Protocol: Document 11/09/17 10:56 [facility] (Rec: 11/09/17 11:01 [facility] [id number]) OT ADL-Dressing General Eval Upper Body Dressing Ability Moderate Assistance Lower Body Dressing Ability Maximum Assistance Areas Needing Assistance Pull-Over Shirt Underpants/Brief Socks Comments OT Dressing Comments Due to weakness and decreased ROM in arms needing lots of assist for dressing needs. OT ADL-Bathing Bathing Type Bathing Type Shower General Evaluation Bathing Ability Maximal Assistance Areas Needing Assistance Retrieving/Setting Up Items Wash/Dry Back Wash/Dry Perineal Area Wash/Dry Lower Extremities Comments OT Bathing Comments Due to limited ROM in arms and weakness, MAX A for showering needs, MODA to stand so able to assist for pericare needs. M5 OT- IP IADL's Start: 11/04/17 16:35 Freq: Status: Active Protocol: Document 11/05/17 12:33 [facility] (Rec: 11/05/17 12:48 [facility] [id number]) OT-Instrumental Activities of Daily Living Home Safety Awareness Awareness of Need for Assistance at Home Decreased Awareness Medication Management Medication Management Caregiver Administers Money Management Money Management Caregiver Provides Assistance Meal Preparation Meal Preparation Caregiver Provides Assist Analytical Lab Analyst Analytical Lab Analyst Caregiver Provides Assist Driving Driving Caregiver Provides Assist M6 OT- IP Functional Cognition Start: 11/04/17 16:35 Freq: Status: Active Protocol: Document 11/09/17 10:56 [facility] (Rec: 11/09/17 11:01 [facility] [id number]) Cognitive Factors Limiting Selfcare Function Cognitive Ability Level of Alertness Alert Patient Orientation Name Place Situation Attention Span Ability Capable of Focused Attention Capable of Sustained Attention Ability to Follow Commands Able to Follow One Step Commands Memory Description Short Term Impaired M7 OT- IP Mobility and Balance Start: 11/04/17 16:35 Freq: Status: Active Protocol: Document 11/09/17 10:56 [facility] (Rec: 11/09/17 11:01 [facility] [id number]) OT- Bed Mobility Assessment Rolling Type of Rolling Roll to Left Level of Assistance Moderate Assistance Supine to Sit Supine to Sit Assist Moderate Assistance Sit to Supine Sit to Supine Assist Moderate Assistance Scooting Scooting to Edge of Bed Moderate Assistance OT-Transfer Assessment Sit to and From Stand Sit to and from Stand Moderate Assistance Transfers Transfer Ability Moderate Assistance Devices Transfer Assistive Devices Gait Belt Comments Mobility Comments MODA to stand once on her feet from DIONICIO to MODA with FWW mainly due to decreased balance and endurance. OT- Balance Assessment Sitting Balance and Reactions Static Sitting Balance Ability Good Dynamic Sitting Balance Ability Fair Standing Balance and Reactions Static Standing Balance Ability Poor Dynamic Standing Balance Ability Poor M8 OT- IP Objective Assessments Start: 11/04/17 16:35 Freq: Status: Active Protocol: Document 11/05/17 12:33 [facility] (Rec: 11/05/17 12:48 [facility] [id number]) OT Gross Range of Motion Upper Extremity Range of Motion Assessment Bilaterally Impaired OT Strength Upper Extremity Strength Assessment Bilaterally Impaired Comments Strength Comments Pt due to fatigue and weakness needing assist for functional mobility. Strength 3-/5 to 3+ /5. M9 OT- IP Assessment and Plan Start: 11/04/17 16:35 Freq: Status: Active Protocol: Document 11/09/17 10:56 [facility] (Rec: 11/09/17 11:01 [facility] [id number]) OT Summary Assessment and Plan Discharge Recommendations OT Discharge Recommendations SNF Rehab Home Equipment Needs [facility]
[2017-11-09 11:45] VITALS: BP 157/87; PULSE 76; RESP 16; TEMP 36.6; O2SAT 98
[2017-11-09 11:48] VITALS: O2SAT 96
--- NOTE | 2017-11-09 12:29 | CM.DPC ---
DCP Cont: Patient is to be discharged today to [facility]. Was able to speak to Wilian with update. Stated that they will last picker patient at 1:30,. She is aware of this. Updated board and his nurse Felicia Flores RN/Silverware Supervisor
[2017-11-09 14:47] LABS: Hepatitis B Core IgM Nonreactive (Nonreactive)
[2017-11-09 14:48] LABS: Hepatitis A Antibody Total Nonreactive (Nonreactive)
[2017-11-09 14:49] LABS: Hepatitis B Core Antibody Nonreactive (Nonreactive)
--- NOTE | 2017-11-10 15:17 | CM.DPC ---
DCP: followup. Dr. Licona just reported that pt called her and said she had left [facility] this morning and needed her medications from d/c. Dr. Licona said she is on insulin and has not ever used that and requested the HH RN be looked into as an option with open to service today if possible. Pt [place] and a PCP: DR. Celina Scott in [place]. Pt, while she was here, had said she could not get in to see the PCP because I can't get in the truck. Contacted [facility] and spoke with Arianna. She agreed to look into the referral and see if she could be helpful. Referral info given. Only address is the [employer] [facility] outside of [place]. Arianna agreed to call pt to discuss HH issues. Called [facility] and spoke with Vahid. He noted the was there during the AMA process, that he tried to find out why pt felt need to leave so that they could better support her there. He said she said I am going out to breakfast to [facility] and I am not coming back. He stated her pulled the truck around, she got in and off they went. He did say her tried to encourage her to stay but she refused. Jessamine back from Arianna. She confirmed with Dr. Scott that pt had not seen her in over 3 months. She said they could not proceed with the HH referral without an active PCP and she shared same with pt. She encouraged her to establish with a local PCP but said pt was very reluctant. She said pt told her I cannot get there as I can't get into the truck. Arianna stated she said she would go again to see Dr. Scott when her meds ran out Dr. Licona is updated and at this point expectation is pt will eventually come back to the ER.
--- NOTE | 2017-11-17 10:53 | P.DS_ITS ---
History of Present Illness Date Patient Seen: 11/09/17 Chief complaint: Chest pain Narrative: Patient is a 72 years of age female who notes a continued and somewhat progressive shortness of breath over the past several weeks. Patient also notes associated nausea without vomiting. No fever noted by patient. No alleviating nor precipitating factors apparent. No chest pain. Past history includes history of COPD with continued smoker addiction. Patient on chronic steroid therapy which certainly dampens her immune system function and increases her risk for infection. Patient notes last episode of pneumonia approximately a month ago she was admitted to [facility] for treatment. Discharge Providers Date of admission: 11/03/17 05:35 Consults: 11/03/17 11:33 Consult to Respiratory Therapy Evaluate & Treat Comment: Physician Instructions: Evaluate and treat 11/04/17 14:18 Consult to Occupational Therapy Evaluate & Treat Comment: Physician Instructions: Evaluate and treat Consult to Physical Therapy Evaluate & Treat Comment: Physician Instructions: Evaluate and Treat Discharge provider: Dory Licona MD Summary Discharge Diagnosis: SHORTNESS OF BREATH PROBABLY SECONDARY TO COPD 2. ABNORMAL LFTS 3. FATTY LIVER/HEPATIC STEATOSIS 4. DEBILITY CHRONIC MEDICAL PROBLEMS 1. LOCULATED PLEURAL EFFUSION 2. COPD AND CONTINUED SMOKER 3. CHRONIC STEROID THERAPY--PREFERS STEROID DOSES OF 15 MG B.I.D. AND 5 MG AT HS 4. DIABETES NOTED BORDERLINE ACCORDING TO PATIENT 5. ESSENTIAL HYPERTENSION Exam Vital Signs (past 8 hours): Afeb: Vital signs stable Fraction of Inspired Oxygen 21 Oxygen Delivery Method Room Air Oxygen Flow Rate 0 Narrative Exam Narrative: Overall patient feels significantly improved Lungs: Decreased breath sounds bilaterally, no rhonchi or wheezing CV: RRR nl Sl S2 Abd: Soft/ non tender/ non distended Ext: no edema Objective Labs Result Diagrams: 11/05/17 09:53 11/07/17 05:43 Discharge Plan Discharge Plan Patient Disposition: SNF Other facility: SHE WILL BE DISCHARGED TO SNF FOR ONGOING REHAB, [facility] Transportation: [facility] I certify the postop hospital m[facility] care is medically necessary on a continuing basis for any conditions for which he/ she received care during this hospitalization.: Yes The receiving facility has agreed to accept transfer and provide medical treatment.: Yes Discharge Med Rec/Prescriptions Prescriptions: New insulin aspart U-100 [Novolog Flexpen U-100 Insulin] 100 unit/mL Insulin Pen subcut AC Qty: 1 RF: 0 insulin glargine [Lantus Solostar U-100 Insulin] 100 unit/mL (3 mL) Insulin Pen 15 unit subcut BEDTIME Qty: 1 RF: 0 Continue albuterol sulfate 2.5 MG/3 ML solution for nebulization 3 ml INH Q4HP PRNQty: 30 RF: 0 albuterol sulfate [ProAir HFA] 90 mcg/actuation Hfa Aerosol Inhaler 1 puff INHALATION Q4-6H PRN (Reason: Shortness Of Breath Or Wheezing) RF: 0 prednisone 10 mg Tablet 15 mg PO BID RF: 0 prednisone 5 mg Tablet 5 mg PO BEDTIME RF: 0 Discontinued albuterol sulfate [Ventolin HFA] 90 MCG/PUFF HFA aerosol inhaler 2 puff INH Q4HP PRNQty: 5 RF: 0 Provider Discharge Instructions Diet: Carb-consistent/Diabetic Liquid consistency: Normal/Thin Food texture: Regular Activity: As tolerated Oxygen: as needed Special Rehabilitation Services Reason for rehabilitation: Recovery r/t decondition Rehab type: Physical therapy and Occupational therapy Restrictions to mobility: None Visit Report/Discharge Packet Instructions: DI for Chronic Obstructive Pulmonary Disease, How to Prevent Falls Discharge Data Attending Provider: Primitivo Fairbanks Admit Date/Time: 11/03/17 05:35 Discharges patient from system. Discharge Date/Time: 11/09/17 13:50 Quality VTE Deep Vein Thrombosis/Pulmonary Embolism Present on Admission: No
== END 2017-11-09 13:50 | DRG 187 ==
LOC: ED 11-03 04:21 → AC 11-03 05:36
PROVIDERS: Internal Medicine; Admitting Provider Internal Medicine; Emergency Provider Emergency Medicine; Visit Provider Internal Medicine
DX: J90 Pleural effusion, not elsewhere classified (principal); J44.0 Chronic obstructive pulmonary disease with (acute) lower respiratory infection; J98.11 Atelectasis; F17.210 Nicotine dependence, cigarettes, uncomplicated; R74.0 Nonspecific elevation of levels of transaminase and lactic acid dehydrogenase [LDH]; J20.9 Acute bronchitis, unspecified; Z79.52 Long term (current) use of systemic steroids; I10 Essential (primary) hypertension; E11.9 Type 2 diabetes mellitus without complications; K76.0 Fatty (change of) liver, not elsewhere classified; R94.5 Abnormal results of liver function studies
CPT/HCPCS: 36415; 36591; 71045; 71260; 74177; 76705; 80053; 80061; 81001; 81003; 82550; 82553; 82962; 83036; 83690; 84484; 85025; 85610; 86704; 86705; 86708; 86803; 87040; 87340; 93005; 93010; 94640; 94760; 94762; 96361; 96365; 96375; 97162; 97166; 97530; 97535; 99285; 99406; C9113; J0696; J1170; J1650; J2270; J7613; Q9967

== ENCOUNTER 2017-12-13 12:10 | Inpatient (IN) | payer MEDICARE, SELFPAY ==
[2017-11-03 06:14] VITALS: BMI 28.5
[2017-12-13] VITALS (10 sets, daily range): BP systolic 126–155; BP diastolic 53–69; PULSE 62–114; RESP 16–37; TEMP 35.7–36.7; O2SAT 92–100; BMI 27.4
--- NOTE | 2017-12-13 12:18 | ED.SOB ---
HPI - SOB/Dyspnea General Chief Complaint: Shortness of Breath/Dyspnea Stated Complaint: SOB, Chest pain Time Seen by Provider: 12/13/17 12:18 Source: patient Mode of arrival: EMS Limitations: no limitations History of Present Illness Patient is a 72-year-old male here for evaluation of multiple reasons. Patient called EMS this morning because she fell. She states she fell because she was too weak to get around. Sounds like this has been going on for some time. When asked the patient how long she has felt this way she says a long time she also stated that this morning she had some chest pain. She states that she has been told that she has COPD but she says I do not see how that can be she has not been taking her inhalers. She is also complaining of shortness of breath this morning. Related Data Home Medications Medication Instructions Recorded Confirmed prednisone 15 mg PO BID 11/03/17 12/13/17 albuterol sulfate 3 ml INH Q4HP PRN 12/13/17 12/13/17 lisinopril 5 mg PO DAILY 12/13/17 12/13/17 Previous Rx's Medication Instructions Recorded insulin aspart U-100 [Novolog 0 unit SUBCUT AC #1 device 11/07/17 Flexpen U-100 Insulin] insulin glargine [Lantus Solostar 15 unit SUBCUT BEDTIME #1 device 11/07/17 U-100 Insulin] Allergies Allergy/AdvReac Type Severity Reaction Status Date / Time avocado [AVOCADO] Allergy Intermediate VOMITING Verified 12/13/17 12:40 Penicillins [PENICILLINS] Allergy Intermediate RASH Verified 12/13/17 12:40 Sulfa (Sulfonamide Allergy Intermediate FEELING Verified 12/13/17 12:40 Antibiotics) HOT-SWEATING [SULFA (SULFONAMIDE TO ANTIBIOTICS)] FREEZING COL Review of Systems Constitutional Reports fatigue, Denies fever(s), Denies headache(s) and Reports malaise ENT Ears, Nose, Mouth, and Throat: Denies headache(s) Cardiovascular Denies chest pain, Denies palpitations and Denies dyspnea Respiratory Denies dyspnea Gastrointestinal Gastrointestinal: Denies abdominal pain, Denies nausea and Denies vomiting Genitourinary Denies dysuria Musculoskeletal Denies myalgias and Denies arthralgias Integumentary/Breasts Denies lesions and Denies rash Neurologic Denies headache(s) Endocrine Reports fatigue and Denies palpitations Hematologic/Lymphatic Denies easy bleeding and Denies easy bruising [facility] Medical History Acute and chronic respiratory failure (Acute) Generalized weakness (Acute) Pneumonia (Acute) COPD (chronic obstructive pulmonary disease) (Acute) Surgical History No pertinent past surgical history (Acute) Social History household members: spouse Smoking Status: Current every day smoker Exam Initial Vital Signs Initial Vital Signs: Vital Signs Temperature 98.0 F 12/13/17 12:17 Pulse Rate 114 H 12/13/17 12:17 Respiratory Rate 28 H 12/13/17 12:17 Pulse Oximetry 100 12/13/17 12:17 Const General: cooperative, comfortable, well developed and well groomed Orientation: alert, awake and oriented x3 Resp Effort & Inspection: not labored, no retractions and tachypneic Auscultation: rhonchi upper bilaterally and lower bilaterally Cardio Rate: tachycardic Rhythm: regular rhythm GI Inspection: non-distended Palpation: soft and No firm Skin Other: One 1 cm ulcerated lesion medial aspect of right distal lower extremity 2 cm ulcerated lesion left medial aspect left lower extremity Neuro General: alert, awake and oriented x3 Extrem General: normal to inspection, capillary refill normal and No edema Psych Appearance: grossly normal and disheveled Course Orders Ordered: ED Orders 12/13/17 12:22 EKG-12 Lead Stat 12/13/17 12:25 XR chest 1V Stat 12/13/17 12:40 B Type Natriuretic Peptide Stat Complete Blood Count AUTO DIFF Stat Comprehensive Metabolic Panel Stat Troponin I Stat 12/13/17 13:20 Urinalysis and Microscopic Stat 12/13/17 13:28 Lactate (Lactic Acid) Stat Procalcitonin Stat 12/13/17 13:36 Blood Culture Stat 12/13/17 14:02 Sputum Culture Stat 12/13/17 15:34 Lactate (Lactic Acid) Stat 12/13/17 16:20 Consult to Physician Routine 12/13/17 17:49 Lactate 4HR (Lactic Acid Rflx) Stat 12/13/17 19:38 Lactate 4HR (Lactic Acid Rflx) Stat Sodium Chloride (Normal Saline 0.9%) 2,041.17 mls @ 680.39 mls/hr 30 ml/kg infuse over 3 hr (2041.17 ml) IV CONT FERNANDO Last Infusion: 12/13/17 18:54 Dose: 0 mls/hr Infusion: 12/13/17 16:37 Dose: 400 mls/hr Infusion: 12/13/17 15:09 Dose: 400 mls/hr Admin: 12/13/17 13:31 Dose: 680.39 mls/hr Sodium Chloride (Normal Saline 0.9%) 1,000 mls @ 125 mls/hr IV CONT FERNANDO Last Admin: 12/13/17 18:54 Dose: 125 mls/hr Discontinued Medications Aspirin (Aspirin Chew) 324 mg PO NOW ONE Stop: 12/13/17 12:25 Last Admin: 12/13/17 12:41 Dose: 324 mg Levofloxacin (Levaquin) 750 mg in 150 mls @ 100 mls/hr IV NOW ONE Stop: 12/13/17 15:33 Last Infusion: 12/13/17 16:37 Dose: 100 mls/hr Admin: 12/13/17 15:09 Dose: 100 mls/hr Vancomycin HCl/Dextrose (Vancomycin) 1,000 mg in 200 mls @ 200 mls/hr IV NOW ONE Stop: 12/13/17 15:03 Last Infusion: 12/13/17 16:21 Dose: 0 mls/hr Admin: 12/13/17 14:17 Dose: 200 mls/hr Ceftriaxone Sodium/Dextrose (Rocephin) 1 gm in 50 mls @ 100 mls/hr IV NOW ONE Stop: 12/13/17 14:35 Last Infusion: 12/13/17 15:07 Dose: 0 mls/hr Admin: 12/13/17 14:16 Dose: 100 mls/hr Vital Signs - 8 hr 12/13/17 12:17 12/13/17 12:44 12/13/17 13:09 Temperature 98.0 F Pulse Rate 114 H 114 H 112 H Respiratory Rate 28 H 28 H 37 H Blood Pressure Blood Pressure [Right Arm] 128/65 Pulse Oximetry 100 92 96 12/13/17 13:30 12/13/17 15:30 12/13/17 16:00 Temperature Pulse Rate 62 89 89 Respiratory Rate 16 18 21 Blood Pressure Blood Pressure [Right Arm] 128/65 126/56 L 128/55 L Pulse Oximetry 100 98 98 12/13/17 16:25 12/13/17 17:04 Temperature 97.9 F Pulse Rate 88 87 Respiratory Rate 22 20 Blood Pressure 152/69 H Blood Pressure [Right Arm] 127/53 L Pulse Oximetry 98 93 MDM - SOB/Dyspnea Medical Records Attestation: I reviewed the patient's medical records. Lab Data Attestation: I reviewed the patient's lab results. Result diagrams: 12/13/17 12:40 12/13/17 12:40 Lab Results 12/13/17 12/13/17 12/13/17 Range/Units 12:40 12:40 13:20 WBC 21.1 H (4.5-11.0) X10^3/uL RBC 4.22 (4.0-5.2) X10^6/uL Hgb 13.6 (12.0-16.0) g/dL Hct 41.0 (36-46) % MCV 97.2 (80-100) fL MCH 32.2 (26-34) PG MCHC 33.1 (30-36) % RDW 15.6 H (11.6-14.8) % Plt Count 150 (150-400) X10^3/uL Neut % (Auto) Not Reportable Lymph % (Auto) Not Reportable [place] % (Auto) Not Reportable Eos % (Auto) Not Reportable Baso % (Auto) Not Reportable Total Counted 100 Seg Neutrophils % 85.0 H (38-70) % Band Neutrophils % 5.0 (3-7) % Lymphocytes % (Manual) 5.0 L (25-45) % Monocytes % (Manual) 4.0 (2-11) % Metamyelocytes % 1.0 H (-0) % Neutrophils # (Manual) 81058 H (2911-7165) /uL RBC Morphology See below Anisocytosis 1+ H Sodium 139 (137-145) mmol/L Potassium 4.1 (3.4-5.1) mmol/L Chloride 97 L (98-107) mmol/L Carbon Dioxide 22 (22-32) mmol/L BUN 20 H (7-17) mg/dL Creatinine 0.50 L (0.52-1.04) mg/dL Estimated GFR > 60.0 (>60) mL/min BUN/Creatinine Ratio 40.0 H (6-22) Glucose 424 H (80-110) mg/dL Lactate (0.7-2.1) mmol/L Calcium 10.2 (8.4-10.2) mg/dL Total Bilirubin 0.9 (0.2-1.3) mg/dL AST 144 H (14-36) IU/L ALT 220 H (9-52) IU/L Alkaline Phosphatase 313 H (38-126) U/L Troponin I 0.012 (0.01-0.034) ng/mL B-Natriuretic Peptide 34.2 (<100) Total Protein 6.9 (6.3-8.2) g/dL Albumin 4.3 (3.5-5.0) g/dL Globulin 2.6 (1.7-4.1) g/dL Albumin/Globulin Ratio 1.7 (1.0-2.8) Procalcitonin (<0.5) ng/mL Urine Color Yellow Urine Appearance Clear Urine pH 5.0 (4.5-8.0) Ur Specific [place] 1.015 (1.000-1.035) Urine Protein Negative (Negative) Urine Glucose (UA) 3+ (Normal) g/dL Urine Ketones Trace H (NEGATIVE) Urine Occult Blood Negative (Negative) Urine Nitrate Negative (Negative) Urine Bilirubin Negative (NEGATIVE) Urine Urobilinogen 0.2 (0.2) E.U./dL Ur Leukocyte Esterase Negative (NEGATIVE) Urine RBC None seen (0-5/HPF) Urine WBC 0-1/hpf (0-5/HPF) Ur Squamous Epith Cells 0-1 /hpf Urine Bacteria None seen (None) Hyaline Casts 0-1/lpf (None) Ur Culture Indicated? Cult not indicated Micro UA Comment Not Reportable 12/13/17 12/13/17 12/13/17 Range/Units 13:28 13:28 15:34 WBC (4.5-11.0) X10^3/uL RBC (4.0-5.2) X10^6/uL Hgb (12.0-16.0) g/dL Hct (36-46) % MCV (80-100) fL MCH (26-34) PG MCHC (30-36) % RDW (11.6-14.8) % Plt Count (150-400) X10^3/uL Neut % (Auto) Lymph % (Auto) [place] % (Auto) Eos % (Auto) Baso % (Auto) Total Counted Seg Neutrophils % (38-70) % Band Neutrophils % (3-7) % Lymphocytes % (Manual) (25-45) % Monocytes % (Manual) (2-11) % Metamyelocytes % (-0) % Neutrophils # (Manual) (2862-4660) /uL RBC Morphology Anisocytosis Sodium (137-145) mmol/L Potassium (3.4-5.1) mmol/L Chloride (98-107) mmol/L Carbon Dioxide (22-32) mmol/L BUN (7-17) mg/dL Creatinine (0.52-1.04) mg/dL Estimated GFR (>60) mL/min BUN/Creatinine Ratio (6-22) Glucose (80-110) mg/dL Lactate 8.1 H 7.3 H (0.7-2.1) mmol/L Calcium (8.4-10.2) mg/dL Total Bilirubin (0.2-1.3) mg/dL AST (14-36) IU/L ALT (9-52) IU/L Alkaline Phosphatase (38-126) U/L Troponin I (0.01-0.034) ng/mL B-Natriuretic Peptide (<100) Total Protein (6.3-8.2) g/dL Albumin (3.5-5.0) g/dL Globulin (1.7-4.1) g/dL Albumin/Globulin Ratio (1.0-2.8) Procalcitonin 0.27 (<0.5) ng/mL Urine Color Urine Appearance Urine pH (4.5-8.0) Ur Specific [place] (1.000-1.035) Urine Protein (Negative) Urine Glucose (UA) (Normal) g/dL Urine Ketones (NEGATIVE) Urine Occult Blood (Negative) Urine Nitrate (Negative) Urine Bilirubin (NEGATIVE) Urine Urobilinogen (0.2) E.U./dL Ur Leukocyte Esterase (NEGATIVE) Urine RBC (0-5/HPF) Urine WBC (0-5/HPF) Ur Squamous Epith Cells Urine Bacteria (None) Hyaline Casts (None) Ur Culture Indicated? Micro UA Comment 12/13/17 Range/Units 17:49 WBC (4.5-11.0) X10^3/uL RBC (4.0-5.2) X10^6/uL Hgb (12.0-16.0) g/dL Hct (36-46) % MCV (80-100) fL MCH (26-34) PG MCHC (30-36) % RDW (11.6-14.8) % Plt Count (150-400) X10^3/uL Neut % (Auto) Lymph % (Auto) [place] % (Auto) Eos % (Auto) Baso % (Auto) Total Counted Seg Neutrophils % (38-70) % Band Neutrophils % (3-7) % Lymphocytes % (Manual) (25-45) % Monocytes % (Manual) (2-11) % Metamyelocytes % (-0) % Neutrophils # (Manual) (5031-1841) /uL RBC Morphology Anisocytosis Sodium (137-145) mmol/L Potassium (3.4-5.1) mmol/L Chloride (98-107) mmol/L Carbon Dioxide (22-32) mmol/L BUN (7-17) mg/dL Creatinine (0.52-1.04) mg/dL Estimated GFR (>60) mL/min BUN/Creatinine Ratio (6-22) Glucose (80-110) mg/dL Lactate 7.3 H (0.7-2.1) mmol/L Calcium (8.4-10.2) mg/dL Total Bilirubin (0.2-1.3) mg/dL AST (14-36) IU/L ALT (9-52) IU/L Alkaline Phosphatase (38-126) U/L Troponin I (0.01-0.034) ng/mL B-Natriuretic Peptide (<100) Total Protein (6.3-8.2) g/dL Albumin (3.5-5.0) g/dL Globulin (1.7-4.1) g/dL Albumin/Globulin Ratio (1.0-2.8) Procalcitonin (<0.5) ng/mL Urine Color Urine Appearance Urine pH (4.5-8.0) Ur Specific [place] (1.000-1.035) Urine Protein (Negative) Urine Glucose (UA) (Normal) g/dL Urine Ketones (NEGATIVE) Urine Occult Blood (Negative) Urine Nitrate (Negative) Urine Bilirubin (NEGATIVE) Urine Urobilinogen (0.2) E.U./dL Ur Leukocyte Esterase (NEGATIVE) Urine RBC (0-5/HPF) Urine WBC (0-5/HPF) Ur Squamous Epith Cells Urine Bacteria (None) Hyaline Casts (None) Ur Culture Indicated? Micro UA Comment Imaging Data Chest x-ray: Radiologist's impression: PROCEDURE: XR CHEST 1V INDICATIONS: chest pain TECHNIQUE: One view of the chest was acquired. COMPARISON: [facility], , XR CHEST 1V, 11/02/2017, 18:55. [facility], CHEST 1 VIEW, 01/13/2016, 21:17. [facility], CHEST 2 VIEW, 12/14/2015, 8:16. FINDINGS: Surgical changes and devices: None. Lungs and pleura: No pleural effusions or pneumothorax. Lungs are stable over time. Mediastinum: Mediastinal contours appear normal. Heart size is normal. Bones and chest wall: No suspicious bony lesions. Overlying soft tissues appear unremarkable. IMPRESSION: Source of pain is not seen. Dictated by: Moises Velasquez M.D. on 12/13/2017 at 12:47 Approved by: Moises Velasquez M.D. on 12/13/2017 at 12:47 ECG Data Attestation: I personally reviewed and interpreted this ECG as follows: Prior ECG tracings: not available for review Interpretation: sinus tachycardia ventricular rate of 111 Normal axis normal QRS Normal QTC nonspecific ST T wave changes MDM Narrative Medical decision making narrative: Patient does have an elevated white blood cell count and a lactate of 8 which improved only slightly after fluids here in the emergency department. She was given broad-spectrum antibiotics for concerns of sepsis. A sputum culture and blood cultures were obtained. Patient is hyper glycemic however CO2 on her BMP is is not consistent with DKA. Unsure as the exact etiology of the elevated white blood cell count and the lactate however pulmonary origin is very likely given her presentation symptoms today. The chest x-ray does not show any definitive pneumonia however. Discussed the case with Dr. Hicks here in the emergency department. He asked that we keep the patient here in the ER for repeat lactate which was done. He was contacted to inform that the lactate was still elevated. Patient was admitted to the hospital under the Medicine service for continued evaluation and treatment. Discharge Plan Departure Patient Disposition: Admitted As Inpatient Clinical Impression: Hyperglycemia, Leukocytosis Discharge Date/Time: 12/13/17 16:42 Interventions: ED Discharge Assessment Last Done: 12/13/17 16:41 Admit Date/Time: 12/13/17 16:22 Admit Provider: Obie Hicks
--- NOTE | 2017-12-13 12:25 | DI.RAD.S_ITS ---
PROCEDURE: XR CHEST 1V INDICATIONS: chest pain TECHNIQUE: One view of the chest was acquired. COMPARISON: [facility], , XR CHEST 1V, 11/02/2017, 18:55. [facility], , CHEST 1 VIEW, 01/13/2016, 21:17. [facility], , CHEST 2 VIEW, 12/14/2015, 8:16. FINDINGS: Surgical changes and devices: None. Lungs and pleura: No pleural effusions or pneumothorax. Lungs are stable over time. Mediastinum: Mediastinal contours appear normal. Heart size is normal. Bones and chest wall: No suspicious bony lesions. Overlying soft tissues appear unremarkable. IMPRESSION: Source of pain is not seen. Dictated by: Moises Velasquez M.D. on 12/13/2017 at 12:47 Approved by: Moises Velasquez M.D. on 12/13/2017 at 12:47
[2017-12-13] MEDS: ASPIRIN 81 MG TAB 324 MG PO (12:41)
[2017-12-13 12:56] LABS: Hemoglobin 13.6 g/dL (12.0-16.0); Mean Corpuscular HGB Conc 33.1 % (30-36); Mean Corpuscular Hemoglobin 32.2 PG (26-34); Mean Corpuscular Volume 97.2 fL (80-100); Platelet Count 150 X10^3/uL (150-400); Red Blood Cell Count 4.22 X10^6/uL (4.0-5.2); Red Cell Distribution Width 15.6 % (11.6-14.8); White Blood Cell Count 21.1 X10^3/uL (4.5-11.0)
[2017-12-13 12:57] LABS: Add Manual Diff / Slide Review YES
[2017-12-13 13:01] LABS: Alanine Aminotransferase 220 IU/L (9-52); Albumin 4.3 g/dL (3.5-5.0); Albumin Globulin Ratio 1.7 (1.0-2.8); Alkaline Phosphatase 313 U/L (38-126); Aspartate Aminotransferase 144 IU/L (14-36); Bilirubin Total 0.9 mg/dL (0.2-1.3); Blood Urea Nitrogen 20 mg/dL (7-17); Calcium 10.2 mg/dL (8.4-10.2); Carbon Dioxide 22 mmol/L (22-32); Chloride 97 mmol/L (98-107); Estimated Glomerular Filt Rate > 60.0 mL/min (>60); Globulin 2.6 g/dL (1.7-4.1); Glucose 424 mg/dL (80-110); HEMOLYSIS < 15 (0-50); Potassium 4.1 mmol/L (3.4-5.1); Sodium 139 mmol/L (137-145); Total Protein 6.9 g/dL (6.3-8.2)
[2017-12-13 13:12] LABS: Troponin I 0.012 ng/mL (0.01-0.034)
[2017-12-13 13:19] LABS: Neutrophils Absolute Manual 18990 /uL (3000-5900); Total Cells Counted 100
[2017-12-13 13:21] LABS: Anisocytosis 1+; B Type Natriuretic Peptide 34.2 (<100)
[2017-12-13] MEDS: SODIUM CHLORIDE 0.9% 2,041.17 ML 680.39 ML IV (13:31)
[2017-12-13 13:35] LABS: Bacteria Urine None Seen; RBC Urine None Seen (0-5/HPF)
[2017-12-13 13:37] LABS: Appearance Urine UA CLEAR; Bilirubin Urine UA NEGATIVE (NEGATIVE); Color Urine UA YELLOW; Glucose Urine UA 3+ g/dL (Normal); Ketones Urine UA TRACE (NEGATIVE); Leukocyte Esterase Urine UA NEGATIVE (NEGATIVE); Nitrite Urine UA NEGATIVE (Negative); Occult Blood Urine UA NEGATIVE (Negative); Protein Urine UA NEGATIVE (Negative); Specific Gravity Urine UA 1.015 (1.000-1.035); Urobilinogen Urine UA 0.2 E.U./dL (0.2)
[2017-12-13 13:54] LABS: Lactate (Lactic Acid) 8.1 mmol/L (0.7-2.1)
[2017-12-13 14:11] LABS: WBC Urine 0-1/HPF (0-5/HPF)
[2017-12-13 14:12] LABS: Culture Indicated Urine Cult Not Indicated; Hyaline Casts Urine 0-1/LPF; Squamous Epithelial Cell Urine 0-1 /HPF
[2017-12-13] MEDS: CEFTRIAXONE 1 GM/50 ML FROZ.PIGGY IV (14:16)
[2017-12-13] MEDS: VANCOMYCIN 1,000 MG/200 ML FROZ.PIGGY 200 MG IV (14:17)
[2017-12-13 14:33] LABS: Procalcitonin 0.27 ng/mL (<0.5)
[2017-12-13] MEDS: levoFLOXacin 750 MG/150 ML PIGGYBACK 100 MG IV (15:09)
[2017-12-13 16:00] LABS: Lactate (Lactic Acid) 7.3 mmol/L (0.7-2.1)
[2017-12-13 17:32] LABS: Reflexed Lactate in 2 Hours Y
[2017-12-13 18:17] LABS: Lactate 2HR (Lactic Acid Rflx) 7.3 mmol/L (0.7-2.1)
[2017-12-13] MEDS: SODIUM CHLORIDE 0.9% 1,000 ML 125 ML IV (18:54)
[2017-12-13 19:38] LABS: Reflexed Lactate in 2 Hours Y
[2017-12-13] MEDS: methylPREDNISolone 125 MG/2 ML VIAL 60 MG IV (21:11)
[2017-12-13] MEDS: INSULIN ASPART 100 UNIT/ML INSULN PEN SUBCUT (21:13)
--- NOTE | 2017-12-13 21:13 | P.HP_ITS ---
History of Present Illness Date Patient Seen: 12/13/17 Time Patient Seen: 21:05 Chief complaint: SOB, Chest pain Narrative: 72-year-old female presents with increasing shortness of breath and weakness. Patient was here in the hospital about a month ago with a COPD exacerbation she went to the half-way for a while and then home. Today brought in because of increasing weakness and shortness of breath. She also notes some abdominal pain and some sores and redness on her lower extremity on the right. Symptoms been going on for the past several days. She is not very compliant with her inhalers at home not compliant with her diabetes medications either. Patient History Medical History Acute and chronic respiratory failure (Resolved) Generalized weakness (Chronic) Pneumonia (Resolved) COPD (chronic obstructive pulmonary disease) (Chronic) Chronic steroid use (Chronic) Diabetes type 2, uncontrolled (Chronic) Fatty liver disease, nonalcoholic (Chronic) Surgical History No pertinent past surgical history (Chronic) Family & Social History Social History: household members spouse Prior Living Arrangements RV Safety & Behavioral: Feels Safe in Current Yes Environment Been Physically Hurt or No Threatened By a Person Suicidal Ideation Description None Suicide Plan Description No Plan Tobacco & Substance use: Tobacco type cigarettes Smoking Status Current every day smoker alcohol intake frequency 0-2 drinks per day Substance Use Type does not use Meds Home Medications Medication Instructions Recorded Confirmed Type prednisone 15 mg PO BID 11/03/17 12/13/17 History insulin aspart U-100 [Novolog 0 unit SUBCUT AC #1 device 11/07/17 12/13/17 Rx Flexpen U-100 Insulin] insulin glargine [Lantus Solostar 15 unit SUBCUT BEDTIME #1 device 11/07/17 Rx U-100 Insulin] albuterol sulfate 3 ml INH Q4HP PRN 12/13/17 12/13/17 History lisinopril 5 mg PO DAILY 12/13/17 12/13/17 History Allergies Allergy/AdvReac Type Severity Reaction Status Date / Time avocado [AVOCADO] Allergy Intermediate VOMITING Verified 12/13/17 12:40 Penicillins [PENICILLINS] Allergy Intermediate RASH Verified 12/13/17 12:40 Sulfa (Sulfonamide Allergy Intermediate FEELING Verified 12/13/17 12:40 Antibiotics) HOT-SWEATING [SULFA (SULFONAMIDE TO ANTIBIOTICS)] FREEZING COL Review of Systems Constitutional Constitutional: Reports fever(s), Reports malaise and Reports weakness Eyes Eyes: Reports system reviewed; no additional complaints, except as documented ENT Ears, Nose, Mouth, and Throat: Yes system reviewed; no additional complaints, except as documented Cardiovascular Cardiovascular: Reports system reviewed; no additional complaints, except as documented, Denies fainting, Denies irregular heart rhythm, Denies leg swelling , Reports shortness of breath and Reports shortness of breath with activity Respiratory Respiratory: Reports chest congestion, Reports cough, Reports dyspnea and Reports dyspnea on exertion Gastrointestinal Gastrointestinal: Reports abdominal pain and Reports early satiety Genitourinary Genitourinary: Reports system reviewed and no additional complaints, except as documented Musculoskeletal Musculoskeletal: Reports muscle weakness Integumentary/Breasts Skin/Breast: Reports system reviewed and no additional complaints, except as documented Neurologic Neurologic: Denies abnormal speech, Denies confusion, Denies syncope, Denies focal weakness and Reports weakness Psychiatric Psychiatric: Reports system reviewed and no additional complaints, except as documented and Denies confusion Endocrine Endocrine: Reports system reviewed and no additional complaints, except as documented Hematologic/Lymphatic Hematologic/Lymphatic: Reports system reviewed and no additional complaints, except as documented Allergic/Immunologic Allergic/Immunologic: Reports system reviewed and no additional complaints, except as documented Exam Vital Signs (past 8 hours): - 12/13/17 13:09 12/13/17 13:30 12/13/17 15:30 Temperature Pulse Rate 112 H 62 89 Respiratory Rate 37 H 16 18 Blood Pressure Blood Pressure [Right Arm] 128/65 128/65 126/56 L Pulse Oximetry 96 100 98 12/13/17 16:00 12/13/17 16:25 12/13/17 17:04 Temperature 97.9 F Pulse Rate 89 88 87 Respiratory Rate 21 22 20 Blood Pressure 152/69 H Blood Pressure [Right Arm] 128/55 L 127/53 L Pulse Oximetry 98 98 93 Oxygen Delivery Method Room Air Narrative Exam Narrative: She is tachypneic at rest and able to complete sentences without taking a breath. She appears uncomfortable HEENT exam oropharynx dry mucosa Neck is supple Lungs diffuse rhonchi wheezing Heart tachycardic Abdomen tenderness in the upper quadrants bilateral palpation decreased bowel sounds no masses Neuro exam awake alert no focal deficits Lower extremity the right calf area medial aspect there is a large erythematous area 8 stat to 10 cm diameter warm red painful and the middle has a white head injury rated firm there is a ulceration just distal to this that is about 1/2 cm diameter and goes down to the subcutaneous fat. No drainage noted Objective Labs Result Diagrams: 12/13/17 12:40 12/13/17 12:40 Labs: Laboratory Results - last 24 hr 12/13/17 12/13/17 12/13/17 12:40 12:40 13:20 WBC 21.1 H RBC 4.22 Hgb 13.6 Hct 41.0 MCV 97.2 MCH 32.2 MCHC 33.1 RDW 15.6 H Plt Count 150 Neut % (Auto) Not Reportable Lymph % (Auto) Not Reportable [place] % (Auto) Not Reportable Eos % (Auto) Not Reportable Baso % (Auto) Not Reportable Total Counted 100 Seg Neutrophils % 85.0 H Band Neutrophils % 5.0 Lymphocytes % (Manual) 5.0 L Monocytes % (Manual) 4.0 Metamyelocytes % 1.0 H Neutrophils # (Manual) 26411 H RBC Morphology See below Anisocytosis 1+ H Sodium 139 Potassium 4.1 Chloride 97 L Carbon Dioxide 22 BUN 20 H Creatinine 0.50 L Estimated GFR > 60.0 BUN/Creatinine Ratio 40.0 H Glucose 424 H Lactate Calcium 10.2 Total Bilirubin 0.9 AST 144 H ALT 220 H Alkaline Phosphatase 313 H Troponin I 0.012 B-Natriuretic Peptide 34.2 Total Protein 6.9 Albumin 4.3 Globulin 2.6 Albumin/Globulin Ratio 1.7 Procalcitonin Urine Color Yellow Urine Appearance Clear Urine pH 5.0 Ur Specific [place] 1.015 Urine Protein Negative Urine Glucose (UA) 3+ Urine Ketones Trace H Urine Occult Blood Negative Urine Nitrate Negative Urine Bilirubin Negative Urine Urobilinogen 0.2 Ur Leukocyte Esterase Negative Urine RBC None seen Urine WBC 0-1/hpf Ur Squamous Epith Cells 0-1 /hpf Urine Bacteria None seen Hyaline Casts 0-1/lpf Ur Culture Indicated? Cult not indicated Micro UA Comment Not Reportable 12/13/17 12/13/17 12/13/17 13:28 13:28 15:34 WBC RBC Hgb Hct MCV MCH MCHC RDW Plt Count Neut % (Auto) Lymph % (Auto) [place] % (Auto) Eos % (Auto) Baso % (Auto) Total Counted Seg Neutrophils % Band Neutrophils % Lymphocytes % (Manual) Monocytes % (Manual) Metamyelocytes % Neutrophils # (Manual) RBC Morphology Anisocytosis Sodium Potassium Chloride Carbon Dioxide BUN Creatinine Estimated GFR BUN/Creatinine Ratio Glucose Lactate 8.1 H 7.3 H Calcium Total Bilirubin AST ALT Alkaline Phosphatase Troponin I B-Natriuretic Peptide Total Protein Albumin Globulin Albumin/Globulin Ratio Procalcitonin 0.27 Urine Color Urine Appearance Urine pH Ur Specific [place] Urine Protein Urine Glucose (UA) Urine Ketones Urine Occult Blood Urine Nitrate Urine Bilirubin Urine Urobilinogen Ur Leukocyte Esterase Urine RBC Urine WBC Ur Squamous Epith Cells Urine Bacteria Hyaline Casts Ur Culture Indicated? Micro UA Comment 12/13/17 17:49 WBC RBC Hgb Hct MCV MCH MCHC RDW Plt Count Neut % (Auto) Lymph % (Auto) [place] % (Auto) Eos % (Auto) Baso % (Auto) Total Counted Seg Neutrophils % Band Neutrophils % Lymphocytes % (Manual) Monocytes % (Manual) Metamyelocytes % Neutrophils # (Manual) RBC Morphology Anisocytosis Sodium Potassium Chloride Carbon Dioxide BUN Creatinine Estimated GFR BUN/Creatinine Ratio Glucose Lactate 7.3 H Calcium Total Bilirubin AST ALT Alkaline Phosphatase Troponin I B-Natriuretic Peptide Total Protein Albumin Globulin Albumin/Globulin Ratio Procalcitonin Urine Color Urine Appearance Urine pH Ur Specific [place] Urine Protein Urine Glucose (UA) Urine Ketones Urine Occult Blood Urine Nitrate Urine Bilirubin Urine Urobilinogen Ur Leukocyte Esterase Urine RBC Urine WBC Ur Squamous Epith Cells Urine Bacteria Hyaline Casts Ur Culture Indicated? Micro UA Comment Assessment & Plan Plan: Assessment/Plan Narrative: One. COPD exacerbation plan check blood gas and FEV1 symptomatically and clinically she has extreme exacerbation has been unresponsive to treatment in the emergency room. Plan to place her on IV antibiotics IV steroids IV fluids and bronchodilators 2. Elevated white count elevated lactate source of infection most likely the cellulitis and possible abscess of the right lower extremity plan to culture this if there is any drainage place her on vancomycin and ceftriaxone for now. Will treat the distal ulceration symptomatically Three. Diabetes type 2 poor control plan to resume insulin she has not been taking NovoLog at home plan to place her back on NovoLog place her on Lantus and then as needed NovoLog also 4. Abdominal pain with elevated liver enzymes somewhat more elevated than previous. Could be from her fatty liver. Consider repeat CT scan if the symptoms do not improve. 5. Code status the patient desired to be DNR. Quality VTE Deep Vein Thrombosis/Pulmonary Embolism Present on Admission: No
[2017-12-13] MEDS: INSULIN GLARGINE 100 UNIT/ML 3ML PEN 15 UNIT SUBCUT (21:14)
[2017-12-13 22:05] LABS: Fractionated Inspired Oxygen 21; HCO3 ABG 23 mmol/L (23-27); Oxygen Saturation ABG 97 % (95-100); PCO2 ABG 31.8 mmHg (35-45); PO2 ABG 85 mmHg (80-105); TCO2 ABG 24 mmol/L (23-27); pH ABG 7.46 (7.35-7.45)
[2017-12-13 22:16] LABS: Lactate 2HR (Lactic Acid Rflx) 5.1 mmol/L (0.7-2.1)
[2017-12-14] VITALS (9 sets, daily range): BP systolic 125–147; BP diastolic 70–75; PULSE 71–92; RESP 14–20; TEMP 36.1–36.6; O2SAT 93–98
[2017-12-14] MEDS: VANCOMYCIN 1,000 MG/200 ML FROZ.PIGGY 200 MG IV ×2 (01:43→14:04)
[2017-12-14] MEDS: methylPREDNISolone 125 MG/2 ML VIAL 60 MG IV (05:45)
[2017-12-14] MEDS: SODIUM CHLORIDE 0.9% 1,000 ML 125 ML IV ×2 (05:46→12:42)
[2017-12-14 07:11] LABS: Add Manual Diff / Slide Review NO; Basophils Percent Auto 0.1 % (0-2); Hematocrit 32.5 % (36-46); Hemoglobin 11.1 g/dL (12.0-16.0); Lymphocytes Percent Auto 2.5 % (25-40); Mean Corpuscular Hemoglobin 32.5 PG (26-34); Mean Corpuscular Volume 95.5 fL (80-100); Monocytes Percent Auto 4.9 % (3-14); Neutrophils Absolute Auto 14400 /uL (3000-5900); Neutrophils Percent Auto 92.5 % (50-75); Platelet Count 109 X10^3/uL (150-400); Red Cell Distribution Width 15.2 % (11.6-14.8); White Blood Cell Count 15.5 X10^3/uL (4.5-11.0)
[2017-12-14 07:22] LABS: BUN Creatinine Ratio 27.5 (6-22); Blood Urea Nitrogen 11 mg/dL (7-17); Calcium 8.9 mg/dL (8.4-10.2); Carbon Dioxide 23 mmol/L (22-32); Chloride 105 mmol/L (98-107); Estimated Glomerular Filt Rate > 60.0 mL/min (>60); Glucose 243 mg/dL (80-110); HEMOLYSIS < 15 (0-50); Potassium 4.3 mmol/L (3.4-5.1); Sodium 140 mmol/L (137-145)
[2017-12-14] MEDS: ENOXAPARIN 40 MG/0.4 ML SYRINGE SUBCUT (08:36)
[2017-12-14] MEDS: INSULIN ASPART 100 UNIT/ML INSULN PEN SUBCUT ×5 (08:37→22:07)
[2017-12-14] MEDS: LISINOPRIL 5 MG TABLET PO (08:39)
--- NOTE | 2017-12-14 11:09 | PM.PN.1 ---
Subjective Date Patient Seen: 12/14/17 Time Patient Seen: 11:15 Interval history: FOLLOW UP ON WEAKNESS, RLE CELLULITIS, AND ABDOMINAL PAIN Patient seen at bedside. She continues to comlpain of RLE pain on palpation. Also has mild residual abdominal pain that she states is improving. She is still quite weak. No overnight events. Exam Vital Signs (past 8 hours): - 12/14/17 05:01 12/14/17 08:15 Temperature 97.7 F 97.9 F Pulse Rate 71 82 Respiratory Rate 20 16 Blood Pressure 141/73 H 133/75 Pulse Oximetry 96 94 Oxygen Delivery Method Room Air Oxygen Flow Rate 0 Narrative Exam Narrative: Gen: Mild distress due to some RLE pain. AAOx3 HEENT: PERRLA BL, EOMI BL Neck: Supple, no LAD/JVD Resp: Breath sounds heard BL with some coarse sounds in the background. No wheezing/rhales appreciated CV: RRR, no murumurs GI: +BS, soft. Mild tenderness to papation diffusely MSK: RLE swelling/redness/tenderness in the mid-calf region, medial side. Drainable .5cm ulcer now evident with possible fluctulance udnerneath Skin: BL UE bruising Objective Labs Result Diagrams: 12/14/17 06:37 12/14/17 06:37 Labs: Laboratory Results - last 24 hr 12/13/17 12/13/17 12/13/17 12:40 12:40 13:20 WBC 21.1 H RBC 4.22 Hgb 13.6 Hct 41.0 MCV 97.2 MCH 32.2 MCHC 33.1 RDW 15.6 H Plt Count 150 Neut % (Auto) Not Reportable Lymph % (Auto) Not Reportable [place] % (Auto) Not Reportable Eos % (Auto) Not Reportable Baso % (Auto) Not Reportable Neut # (Auto) Total Counted 100 Seg Neutrophils % 85.0 H Band Neutrophils % 5.0 Lymphocytes % (Manual) 5.0 L Monocytes % (Manual) 4.0 Metamyelocytes % 1.0 H Neutrophils # (Manual) 42121 H RBC Morphology See below Anisocytosis 1+ H ABG pH ABG pCO2 ABG pO2 ABG HCO3 ABG Total CO2 ABG O2 Saturation ABG Base Excess FiO2 Sodium 139 Potassium 4.1 Chloride 97 L Carbon Dioxide 22 BUN 20 H Creatinine 0.50 L Estimated GFR > 60.0 BUN/Creatinine Ratio 40.0 H Glucose 424 H Lactate Calcium 10.2 Total Bilirubin 0.9 AST 144 H ALT 220 H Alkaline Phosphatase 313 H Troponin I 0.012 B-Natriuretic Peptide 34.2 Total Protein 6.9 Albumin 4.3 Globulin 2.6 Albumin/Globulin Ratio 1.7 Procalcitonin Urine Color Yellow Urine Appearance Clear Urine pH 5.0 Ur Specific [place] 1.015 Urine Protein Negative Urine Glucose (UA) 3+ Urine Ketones Trace H Urine Occult Blood Negative Urine Nitrate Negative Urine Bilirubin Negative Urine Urobilinogen 0.2 Ur Leukocyte Esterase Negative Urine RBC None seen Urine WBC 0-1/hpf Ur Squamous Epith Cells 0-1 /hpf Urine Bacteria None seen Hyaline Casts 0-1/lpf Ur Culture Indicated? Cult not indicated Micro UA Comment Not Reportable 12/13/17 12/13/17 12/13/17 13:28 13:28 15:34 WBC RBC Hgb Hct MCV MCH MCHC RDW Plt Count Neut % (Auto) Lymph % (Auto) [place] % (Auto) Eos % (Auto) Baso % (Auto) Neut # (Auto) Total Counted Seg Neutrophils % Band Neutrophils % Lymphocytes % (Manual) Monocytes % (Manual) Metamyelocytes % Neutrophils # (Manual) RBC Morphology Anisocytosis ABG pH ABG pCO2 ABG pO2 ABG HCO3 ABG Total CO2 ABG O2 Saturation ABG Base Excess FiO2 Sodium Potassium Chloride Carbon Dioxide BUN Creatinine Estimated GFR BUN/Creatinine Ratio Glucose Lactate 8.1 H 7.3 H Calcium Total Bilirubin AST ALT Alkaline Phosphatase Troponin I B-Natriuretic Peptide Total Protein Albumin Globulin Albumin/Globulin Ratio Procalcitonin 0.27 Urine Color Urine Appearance Urine pH Ur Specific [place] Urine Protein Urine Glucose (UA) Urine Ketones Urine Occult Blood Urine Nitrate Urine Bilirubin Urine Urobilinogen Ur Leukocyte Esterase Urine RBC Urine WBC Ur Squamous Epith Cells Urine Bacteria Hyaline Casts Ur Culture Indicated? Micro UA Comment 12/13/17 12/13/17 12/13/17 17:49 21:50 22:01 WBC RBC Hgb Hct MCV MCH MCHC RDW Plt Count Neut % (Auto) Lymph % (Auto) [place] % (Auto) Eos % (Auto) Baso % (Auto) Neut # (Auto) Total Counted Seg Neutrophils % Band Neutrophils % Lymphocytes % (Manual) Monocytes % (Manual) Metamyelocytes % Neutrophils # (Manual) RBC Morphology Anisocytosis ABG pH 7.46 H ABG pCO2 31.8 L ABG pO2 85 ABG HCO3 23 ABG Total CO2 24 ABG O2 Saturation 97 ABG Base Excess -1.0 FiO2 21 Sodium Potassium Chloride Carbon Dioxide BUN Creatinine Estimated GFR BUN/Creatinine Ratio Glucose Lactate 7.3 H 5.1 H Calcium Total Bilirubin AST ALT Alkaline Phosphatase Troponin I B-Natriuretic Peptide Total Protein Albumin Globulin Albumin/Globulin Ratio Procalcitonin Urine Color Urine Appearance Urine pH Ur Specific [place] Urine Protein Urine Glucose (UA) Urine Ketones Urine Occult Blood Urine Nitrate Urine Bilirubin Urine Urobilinogen Ur Leukocyte Esterase Urine RBC Urine WBC Ur Squamous Epith Cells Urine Bacteria Hyaline Casts Ur Culture Indicated? Micro UA Comment 12/14/17 12/14/17 06:37 06:37 WBC 15.5 H RBC 3.40 L Hgb 11.1 L Hct 32.5 L MCV 95.5 MCH 32.5 MCHC 34.0 RDW 15.2 H Plt Count 109 L Neut % (Auto) 92.5 H Lymph % (Auto) 2.5 L [place] % (Auto) 4.9 Eos % (Auto) 0.0 L Baso % (Auto) 0.1 Neut # (Auto) 75428 H Total Counted Seg Neutrophils % Band Neutrophils % Lymphocytes % (Manual) Monocytes % (Manual) Metamyelocytes % Neutrophils # (Manual) RBC Morphology Anisocytosis ABG pH ABG pCO2 ABG pO2 ABG HCO3 ABG Total CO2 ABG O2 Saturation ABG Base Excess FiO2 Sodium 140 Potassium 4.3 Chloride 105 Carbon Dioxide 23 BUN 11 Creatinine 0.40 L Estimated GFR > 60.0 BUN/Creatinine Ratio 27.5 H Glucose 243 H D Lactate Calcium 8.9 Total Bilirubin AST ALT Alkaline Phosphatase Troponin I B-Natriuretic Peptide Total Protein Albumin Globulin Albumin/Globulin Ratio Procalcitonin Urine Color Urine Appearance Urine pH Ur Specific [place] Urine Protein Urine Glucose (UA) Urine Ketones Urine Occult Blood Urine Nitrate Urine Bilirubin Urine Urobilinogen Ur Leukocyte Esterase Urine RBC Urine WBC Ur Squamous Epith Cells Urine Bacteria Hyaline Casts Ur Culture Indicated? Micro UA Comment Assessment & Plan Plan: Assessment/Plan Narrative: 1. RLE Cellulitis - Improving - Leukocytosis improving, now 15.5 - Lactic Acid improving, now 5.1 - Will continue IV Vancomycin and Ceftriaxone at this time - Continue IVF - Pending blood cultures - Surgery consulted for possible I/D...will follow up 2. DM, Type II - Improving but still poorly controlled - BG 243 this am (could be elevated due to acute infection) - Will continue Glargine 15U Bedtime but increase Aspart to 7U TIDAC and continue SSI - Frequent accuchecks, hypoglycemia protocol 3. COPD - Currently not in exacerbation as patient is saturating well on RA and no wheezing appreciated - Will stop steroids at this time and continue Albuterol PRN 4. Abdominal pain - Improving, Likely due to fatty liver - LFTs elevated on admission - Continue to monitor LFTs 20 min spent evaluating and providing care for this patient Quality VTE Deep Vein Thrombosis/Pulmonary Embolism Present on Admission: No
[2017-12-14 11:44] LABS: Lactate (Lactic Acid) 6.7 mmol/L (0.7-2.1)
[2017-12-14] MEDS: INSULIN ASPART 100 UNIT/ML INSULN PEN 7 UNIT SUBCUT ×2 (12:01→17:30)
--- NOTE | 2017-12-14 12:10 | PC.NURSE ---
Pts leg wounds dressing with allevyn and cellulitis area to r.corbin area outlined with black sharpie. Pt does have a small nodule with pus in the center of area, almost looks like a pimple. Culture results came back from wounds and pt does have gram positive cocci, she is on contact precautions until sensitivies are back. She is resting comfortably now. Please see under skin assessment and body image for more detail on pts skin.
[2017-12-14] MEDS: CEFTRIAXONE 1 GM/50 ML FROZ.PIGGY IV (12:43)
[2017-12-14 15:31] LABS: Reflexed Lactate in 2 Hours Y
--- NOTE | 2017-12-14 16:43 | CM.DANOTE ---
Discharge Planning/Care Management DCP: assessment: case received, EMR reviewed and met briefly now with pt and her as Dr. Miller was just leaving room. He confirmed pt did not need surgery at this time. Introduced self and d/c planning role. Pt is a 72 year old female who admitted yesterday afternoon to care of hospitalist team. Payer: [facility] Advantage: [facility] care: out of state plan. Pt has a complex history in terms of her insurance, lack of elibibility for medicaid in this state and other issues. Please refer to the lengthy CM/DCP notes from her recent stay here at 11/02 to 11/09 with a d/c to [facility] after lenghty insurance auth process and then pt's decision to leave from there AMA after a day. P: in process. Expect OT and PT will be involved as appropriate. CM Discharge Assessment Start: 12/14/17 16:38 Freq: Status: Active Protocol: Document 12/14/17 16:38 ITV (Rec: 12/14/17 16:43 ITV [id number]) Discharge Planning Assessment Advance Directives? Yes Advance Directives on File Yes History Provided By Patient Medical Record Comment 11/02 to 11/09/17. dc to [facility] and went AMA after one day. HH could not follow as pt not establishe with a PCP Prior Living Arrangements RV Comment pt and her have lifetime membership at [facility]. [place]ye live in the [place] near [place] and move to another park every 3 weeks. Home base is the [facility]. Household Members spouse Type of transporation used prior to Relies on Others admit Facility Name Admitted From: [facility] Willing to Return to Facility? No: went AMA after one day Is patient alert and oriented? Yes Whiteboard Updated in Patient Room with Yes name and ext. # of Joiners Supervisor Review Status In Process Next Review Type Continued Stay Review
[2017-12-14] MEDS: predniSONE 5 MG TABLET 15 MG PO (16:48)
[2017-12-14] MEDS: ALBUTEROL 2.5 MG/3 ML NEB (ADULT) INH (16:55)
[2017-12-14 16:59] LABS: Lactate 2HR (Lactic Acid Rflx) 4.8 mmol/L (0.7-2.1)
--- NOTE | 2017-12-14 17:46 | PM.CN ---
History of Present Illness Date Patient Seen: 12/14/17 Time Patient Seen: 17:46 Chief complaint: SOB, Chest pain Reason for consult: Cellulitis and superficial leg ulceration Requesting provider: Vicki Salinas Narrative: 72-year-old insulin-dependent diabetic with significant tobacco use history who presented to the emergency department yesterday with COPD exacerbation and complaints of right leg pain. Examination was consistent with cellulitis in association with superficial skin ulceration of the right medial calf. Patient was begun on intravenous antibiotics while her respiratory status was stabilized. However, there is some concern about potential abscess or necrotic debris at the ulcer for which surgical consultation is now obtained. On further history today the patient states that the leg pain is mildly improved. She is feeling somewhat less short of breath. No subjective fever or chills. Her abdominal pain is also improved but otherwise stable. She also notes an ulceration on the left leg. At home she is not very mobile or ambulatory. She states that she has only essentially able to ambulate 3 steps to the bathroom but fell yesterday which precipitated her presentation to the hospital. She denies any history of prior ulcerations or significant venous disease. No known vascular disease. [facility] Medical History Acute and chronic respiratory failure (Resolved) Generalized weakness (Chronic) Pneumonia (Resolved) COPD (chronic obstructive pulmonary disease) (Chronic) Chronic steroid use (Chronic) Diabetes type 2, uncontrolled (Chronic) Fatty liver disease, nonalcoholic (Chronic) Surgical History No pertinent past surgical history (Chronic) Social History household members: spouse Smoking Status: Current every day smoker Meds Home Medications Medication Instructions Recorded Confirmed Type prednisone 15 mg PO BID 11/03/17 12/13/17 History insulin aspart U-100 [Novolog 0 unit SUBCUT AC #1 device 11/07/17 12/13/17 Rx Flexpen U-100 Insulin] insulin glargine [Lantus Solostar 15 unit SUBCUT BEDTIME #1 device 11/07/17 12/13/17 Rx U-100 Insulin] albuterol sulfate 3 ml INH Q4HP PRN 12/13/17 12/13/17 History lisinopril 5 mg PO DAILY 12/13/17 12/13/17 History Allergies Allergy/AdvReac Type Severity Reaction Status Date / Time avocado [AVOCADO] Allergy Intermediate VOMITING Verified 12/13/17 12:40 Penicillins [PENICILLINS] Allergy Intermediate RASH Verified 12/13/17 12:40 Sulfa (Sulfonamide Allergy Intermediate FEELING Verified 12/13/17 12:40 Antibiotics) HOT-SWEATING [SULFA (SULFONAMIDE TO ANTIBIOTICS)] FREEZING COL Review of Systems Review of Systems All systems reviewed & are unremarkable except as noted in HPI and below Exam Vital Signs (past 8 hours): - 12/14/17 11:43 12/14/17 12:15 12/14/17 16:27 Temperature 97.9 F 97.5 F L Pulse Rate 92 H 88 Respiratory Rate 18 16 Blood Pressure 137/75 147/70 H Pulse Oximetry 96 93 97 12/14/17 16:59 Temperature Pulse Rate 73 Respiratory Rate 14 Blood Pressure Pulse Oximetry 98 Oxygen Delivery Method Room Air Oxygen Flow Rate 0 Narrative Exam Narrative: Chronically ill-appearing female lying in right lateral decubitus position in no acute distress. She does not appear to be acutely uncomfortable. Alert oriented x3. is at the bedside. He has multiple ecchymoses and atrophy of the skin, particularly of the extremities consistent with chronic steroid use She has ever skin complexion consistent with tobacco use She has audible wheezing Moves all extremities symmetrically Abdomen is mildly tender but not distended Lower extremities show an area of erythema consistent with cellulitis of the right medial leg extending along the calf, medial knee, and lower medial thigh. Area has been outlined at the time of her admission yesterday. Erythema actually has withdrawn from the outline at the time of my examination. No abscess. No pitting edema. There is a superficial dressing in the right medial calf which I removed to reveal a 1 cm superficial skin ulceration with no associated abscess or necrotic debris. There is a similar dressing on the left medial thigh which shows an excoriation at that level but no lavon ulceration. Again, no necrotic debris or evidence of abscess. I am unable to palpate dorsal pedis pulses on bilateral feet Objective Labs Result Diagrams: 12/14/17 06:37 12/14/17 06:37 Labs: Laboratory Results - last 24 hr 12/13/17 12/13/17 12/13/17 17:49 21:50 22:01 WBC RBC Hgb Hct MCV MCH MCHC RDW Plt Count Neut % (Auto) Lymph % (Auto) [place] % (Auto) Eos % (Auto) Baso % (Auto) Neut # (Auto) ABG pH 7.46 H ABG pCO2 31.8 L ABG pO2 85 ABG HCO3 23 ABG Total CO2 24 ABG O2 Saturation 97 ABG Base Excess -1.0 FiO2 21 Sodium Potassium Chloride Carbon Dioxide BUN Creatinine Estimated GFR BUN/Creatinine Ratio Glucose Lactate 7.3 H 5.1 H Calcium 12/14/17 12/14/17 12/14/17 06:37 06:37 11:25 WBC 15.5 H RBC 3.40 L Hgb 11.1 L Hct 32.5 L MCV 95.5 MCH 32.5 MCHC 34.0 RDW 15.2 H Plt Count 109 L Neut % (Auto) 92.5 H Lymph % (Auto) 2.5 L [place] % (Auto) 4.9 Eos % (Auto) 0.0 L Baso % (Auto) 0.1 Neut # (Auto) 03136 H ABG pH ABG pCO2 ABG pO2 ABG HCO3 ABG Total CO2 ABG O2 Saturation ABG Base Excess FiO2 Sodium 140 Potassium 4.3 Chloride 105 Carbon Dioxide 23 BUN 11 Creatinine 0.40 L Estimated GFR > 60.0 BUN/Creatinine Ratio 27.5 H Glucose 243 H D Lactate 6.7 H Calcium 8.9 12/14/17 16:22 WBC RBC Hgb Hct MCV MCH MCHC RDW Plt Count Neut % (Auto) Lymph % (Auto) [place] % (Auto) Eos % (Auto) Baso % (Auto) Neut # (Auto) ABG pH ABG pCO2 ABG pO2 ABG HCO3 ABG Total CO2 ABG O2 Saturation ABG Base Excess FiO2 Sodium Potassium Chloride Carbon Dioxide BUN Creatinine Estimated GFR BUN/Creatinine Ratio Glucose Lactate 4.8 H Calcium Assessment & Plan Plan: Assessment/Plan Narrative: 72-year-old poorly controlled diabetic complicated by significant tobacco use who most likely has moderate to severe peripheral vascular disease now complicated by cellulitis and superficial ulceration of the leg. I suspect a superficial ulceration occurred initially and became secondarily infected. Again, there is no evidence of abscess or necrotic debris that require surgical intervention at this stage. Agree with intravenous antibiotics and tight glucose control as much as possible. I discussed smoking cessation with the patient briefly. Recommend ongoing localized wound care as above. Once the a current episode has resolved I would recommend vascular surgery consultation regarding likely arterial disease. I discussed all the above with the patient and her in detail. All questions were answered to her satisfaction, and the patient voiced understanding. Because she requires no acute surgical intervention at this time we will follow her peripherally. However, we would be happy to see her again if she has any progressive or new issues.
[2017-12-14] MEDS: INSULIN GLARGINE 100 UNIT/ML 3ML PEN 15 UNIT SUBCUT (22:05)
[2017-12-15] VITALS (12 sets, daily range): BP systolic 110–187; BP diastolic 51–94; PULSE 69–94; RESP 15–22; TEMP 36–36.8; O2SAT 95–97
[2017-12-15] MEDS: SODIUM CHLORIDE 0.9% 1,000 ML 125 ML IV ×2 (00:56→14:37)
[2017-12-15] MEDS: VANCOMYCIN 1,000 MG/200 ML FROZ.PIGGY 200 MG IV (02:13)
[2017-12-15] MEDS: VANCOMYCIN TROUGH 1 REQUEST MISC (06:30)
[2017-12-15 07:28] LABS: Hematocrit 32.6 % (36-46); Hemoglobin 11.2 g/dL (12.0-16.0); Mean Corpuscular HGB Conc 34.3 % (30-36); Mean Corpuscular Hemoglobin 32.9 PG (26-34); Mean Corpuscular Volume 95.9 fL (80-100); Platelet Count 113 X10^3/uL (150-400); Red Cell Distribution Width 15.3 % (11.6-14.8); White Blood Cell Count 13.6 X10^3/uL (4.5-11.0)
[2017-12-15 07:40] LABS: Add Manual Diff / Slide Review YES
[2017-12-15 07:42] LABS: Alanine Aminotransferase 190 IU/L (9-52); Albumin 3.2 g/dL (3.5-5.0); Albumin Globulin Ratio 1.3 (1.0-2.8); Alkaline Phosphatase 244 U/L (38-126); Aspartate Aminotransferase 99 IU/L (14-36); Bilirubin Total 0.4 mg/dL (0.2-1.3); Blood Urea Nitrogen 12 mg/dL (7-17); Calcium 9.2 mg/dL (8.4-10.2); Carbon Dioxide 25 mmol/L (22-32); Chloride 106 mmol/L (98-107); Estimated Glomerular Filt Rate > 60.0 mL/min (>60); Globulin 2.4 g/dL (1.7-4.1); Glucose 228 mg/dL (80-110); HEMOLYSIS < 15 (0-50); Potassium 3.9 mmol/L (3.4-5.1); Sodium 139 mmol/L (137-145); Total Protein 5.6 g/dL (6.3-8.2)
[2017-12-15] MEDS: predniSONE 5 MG TABLET 15 MG PO ×2 (08:12→21:38)
[2017-12-15] MEDS: LISINOPRIL 5 MG TABLET PO (08:14)
[2017-12-15] MEDS: INSULIN ASPART 100 UNIT/ML INSULN PEN SUBCUT ×4 (08:19→21:35)
[2017-12-15] MEDS: INSULIN ASPART 100 UNIT/ML INSULN PEN 7 UNIT SUBCUT ×3 (08:20→17:25)
[2017-12-15 08:35] LABS: Neutrophils Absolute Manual 11968 /uL (3000-5900); RBC Morphology Normal Morphology; Total Cells Counted 100
--- NOTE | 2017-12-15 11:46 | CM.DPC ---
DCP Cont: Was noted that patient lives with at [facility], [place]. Patient was recently at [facility] in October. Was discharged here on 11/17. Called and spoke to Arlette at [facility]. Asked if they would accept patient if skilled services is needed. Stated that she would have to review this case with management. Patient also has [facility], Medicare Advantage, and this would also depend on coverage. P: DCP to continue to follow patient closely. If skilled services is needed, would need authorization with insurance, and this would also depend if patient consents to this. Felicia Flores RN/Cookie Padder
[2017-12-15] MEDS: CEFTRIAXONE 1 GM/50 ML FROZ.PIGGY IV (12:24)
--- NOTE | 2017-12-15 12:39 | CM.DPC ---
DCP Cont: Spoke to patient regarding plan. Patient had recently been at [facility]. Asked patient about this experience, stated, I wouldn't send a dog there. Discussed other options, depending on if her insurance would cover, which she is aware of. Stated that she might consent to another facility, but not sure yet. At this time, patient is continuing on IV antibiotics. P: DCP to continue to follow closely as plan unfolds. Felicia Flores RN/Forest Resource Specialist
--- NOTE | 2017-12-15 13:46 | PM.PN.1 ---
Subjective Date Patient Seen: 12/15/17 Time Patient Seen: 13:47 Interval history: FOLLOW UP ON WEAKNESS, RLE CELLULITIS Patient seen at bedside. States she is feeling a little better but still complaining of weakness and RLE pain, although that has been improving. No overnight events. Exam Vital Signs (past 8 hours): - 12/15/17 07:45 12/15/17 11:42 12/15/17 11:51 Temperature 98.0 F 98.2 F Pulse Rate 83 76 Respiratory Rate 17 18 Blood Pressure 160/84 H 147/71 H Pulse Oximetry 97 95 96 Oxygen Delivery Method Room Air Oxygen Flow Rate 0 Narrative Exam Narrative: Exam Narrative: Gen: Mild distress due to some RLE pain. AAOx3 HEENT: PERRLA BL, EOMI BL Neck: Supple, no LAD/JVD Resp: Breath sounds heard BL with some coarse sounds in the background. No wheezing/rhales appreciated CV: RRR, no murumurs GI: +BS, soft. Mild tenderness to papation diffusely MSK: RLE swelling/redness/tenderness in the mid-calf region, medial side. .5cm ulcer with superficial draining on the upper aspect Skin: BL UE bruising Objective Labs Result Diagrams: 12/15/17 06:55 12/15/17 06:55 Labs: Laboratory Results - last 24 hr 12/14/17 12/15/17 12/15/17 16:22 01:30 06:55 WBC 13.6 H RBC 3.40 L Hgb 11.2 L Hct 32.6 L MCV 95.9 MCH 32.9 MCHC 34.3 RDW 15.3 H Plt Count 113 L Neut % (Auto) Not Reportable Lymph % (Auto) Not Reportable [place] % (Auto) Not Reportable Eos % (Auto) Not Reportable Baso % (Auto) Not Reportable Total Counted 100 Seg Neutrophils % 74.0 H Band Neutrophils % 14.0 H Lymphocytes % (Manual) 4.0 L Atypical Lymphs % 3.0 H Monocytes % (Manual) 4.0 Metamyelocytes % 1.0 H Neutrophils # (Manual) 41586 H RBC Morphology Normal morphology Sodium Potassium Chloride Carbon Dioxide BUN Creatinine Estimated GFR BUN/Creatinine Ratio Glucose Lactate 4.8 H Calcium Total Bilirubin AST ALT Alkaline Phosphatase Total Protein Albumin Globulin Albumin/Globulin Ratio Vancomycin Trough 11.0 12/15/17 06:55 WBC RBC Hgb Hct MCV MCH MCHC RDW Plt Count Neut % (Auto) Lymph % (Auto) [place] % (Auto) Eos % (Auto) Baso % (Auto) Total Counted Seg Neutrophils % Band Neutrophils % Lymphocytes % (Manual) Atypical Lymphs % Monocytes % (Manual) Metamyelocytes % Neutrophils # (Manual) RBC Morphology Sodium 139 Potassium 3.9 Chloride 106 Carbon Dioxide 25 BUN 12 Creatinine 0.50 L Estimated GFR > 60.0 BUN/Creatinine Ratio 24.0 H Glucose 228 H Lactate Calcium 9.2 Total Bilirubin 0.4 AST 99 H ALT 190 H Alkaline Phosphatase 244 H Total Protein 5.6 L Albumin 3.2 L Globulin 2.4 Albumin/Globulin Ratio 1.3 Vancomycin Trough Assessment & Plan Plan: Assessment/Plan Narrative: 1. RLE Cellulitis - Improving - Leukocytosis improving, now 13.6 - Lactic Acid improving, now 4.8 - Wound cultures grew MRSA sensitive to Vanc...Blood cx prelim negative - Will continue IV Vancomycin and Ceftriaxone at this time - Continue IVF - Surgery consulted..no abscess to drain 2. DM, Type II - Improving but still poorly controlled - BG 228 this am (could be elevated due to acute infection) - Will increase Glargine to 18U Bedtime and continue Aspart 7U TIDAC and continue SSI - Frequent accuchecks, hypoglycemia protocol 3. COPD - Currently not in exacerbation as patient is saturating well on RA and no wheezing appreciated - Patient grew Serratia marcenes and MRSA in her sputum...Currently on Vanc and Ceftriaxone for Cellulitis - Continue Albuterol PRN and low dose home steroids 4. Abdominal pain - Improving, Likely due to fatty liver - LFTs elevated on admission but now downtrending - Continue to monitor LFTs PT/OT consulted 23 min spent evaluating and providing care for this patient Quality VTE Deep Vein Thrombosis/Pulmonary Embolism Present on Admission: No
[2017-12-15] MEDS: VANCOMYCIN 1,250 MG in SODIUM CHLORIDE 0.9% 250 ML IV (14:39)
--- NOTE | 2017-12-15 16:35 | PC.NURSE ---
Pt c/o dizziness all day. States has not dizziness like this previously. Rates pain 10/10 all over. Requests morphine and states wants to sleep. P.T. comes into pt's room to offer to mobilize pt and pt declines d/t dizziness. Ice to RLE wound. Allevyn gentle border dressing to right distal LE and left upper thigh. Scattered bruises to BL UE's L > R.
--- NOTE | 2017-12-15 16:37 | PT.IPTN ---
Addendum entered and electronically signed by Rosa Walton, PT 12/15/17 16:38: this is to certify that i have reviewed this documentation. Original Note: Current Diagnoses Chronic obstructive pulmonary disease with (acute) exacerbation (12/13/17) Physical Therapy Treatment Note M3 PT-IP Subjective Start: 12/15/17 16:26 Freq: NEEDED Status: Active Protocol: Document 12/15/17 16:27 (Rec: 12/15/17 16:31 [email or web address]) Subjective Physical Therapy Visit Type Type Patient Refusal Notes Checked on pt multiple times for PT eval. 1st time, pt unavaliable with nursing. 2nd time pt refused stating intense dizziness (stated she cannot even move her head), pain all over, and asking for morphine. Nurse aware of pt status and asking for pain meds. Informed pt that PT will check on her in the morning.
[2017-12-15] MEDS: ACETAMINOPHEN 325 MG TABLET 650 MG PO (17:39)
[2017-12-15] MEDS: ALBUTEROL 2.5 MG/3 ML NEB (ADULT) INH (18:15)
--- NOTE | 2017-12-15 18:51 | PC.NURSE ---
Dr. Salinas in house and informed of pt's c/o dizziness. reviewed pt's vital signs and issued order for one time dose labetalol. R.T. in to provide treatment.
[2017-12-15] MEDS: LABETALOL 20 MG/4 ML SYRINGE 10 MG IV (18:58)
[2017-12-15] MEDS: INSULIN GLARGINE 100 UNIT/ML 3ML PEN 18 UNIT SUBCUT (21:37)
--- NOTE | 2017-12-15 23:10 | PC.NURSE ---
Mostly sleeping this evening shift. No further c/o dizziness. IV fluids infusing as ordered to left forearm iv site without difficulty. Cooperative with care.
[2017-12-16] VITALS (10 sets, daily range): BP systolic 144–150; BP diastolic 82–85; PULSE 68–91; RESP 16–22; TEMP 36.5–36.7; O2SAT 93–99
[2017-12-16] MEDS: SODIUM CHLORIDE 0.9% 1,000 ML 125 ML IV (00:35)
[2017-12-16] MEDS: ACETAMINOPHEN 325 MG TABLET 650 MG PO (00:45)
[2017-12-16] MEDS: VANCOMYCIN 1,250 MG in SODIUM CHLORIDE 0.9% 250 ML IV ×2 (01:54→16:33)
[2017-12-16] MEDS: ALBUTEROL/IPRATROPIUM 3 ML AMPUL INH ×3 (05:37→19:59)
[2017-12-16 07:04] LABS: Hematocrit 31.4 % (36-46); Hemoglobin 10.6 g/dL (12.0-16.0); Mean Corpuscular HGB Conc 33.6 % (30-36); Mean Corpuscular Hemoglobin 32.4 PG (26-34); Mean Corpuscular Volume 96.4 fL (80-100); Platelet Count 117 X10^3/uL (150-400); Red Blood Cell Count 3.26 X10^6/uL (4.0-5.2); Red Cell Distribution Width 15.5 % (11.6-14.8)
[2017-12-16 07:05] LABS: Add Manual Diff / Slide Review YES
[2017-12-16 07:07] LABS: Lactate (Lactic Acid) 2.8 mmol/L (0.7-2.1)
[2017-12-16 07:08] LABS: Alanine Aminotransferase 222 IU/L (9-52); Albumin 2.9 g/dL (3.5-5.0); Albumin Globulin Ratio 1.3 (1.0-2.8); Alkaline Phosphatase 245 U/L (38-126); Aspartate Aminotransferase 110 IU/L (14-36); BUN Creatinine Ratio 32.5 (6-22); Bilirubin Total 0.5 mg/dL (0.2-1.3); Blood Urea Nitrogen 13 mg/dL (7-17); Calcium 8.6 mg/dL (8.4-10.2); Carbon Dioxide 29 mmol/L (22-32); Chloride 108 mmol/L (98-107); Estimated Glomerular Filt Rate > 60.0 mL/min (>60); Globulin 2.2 g/dL (1.7-4.1); Glucose 203 mg/dL (80-110); HEMOLYSIS < 15 (0-50); Potassium 4.1 mmol/L (3.4-5.1); Sodium 141 mmol/L (137-145); Total Protein 5.1 g/dL (6.3-8.2)
[2017-12-16 08:30] LABS: Neutrophils Absolute Manual 8910 /uL (3000-5900); RBC Morphology Normal Morphology; Total Cells Counted 100
[2017-12-16] MEDS: LISINOPRIL 5 MG TABLET PO (08:42)
[2017-12-16] MEDS: predniSONE 5 MG TABLET 15 MG PO ×2 (08:43→21:31)
[2017-12-16] MEDS: INSULIN ASPART 100 UNIT/ML INSULN PEN SUBCUT ×3 (08:44→17:03)
[2017-12-16] MEDS: INSULIN ASPART 100 UNIT/ML INSULN PEN 7 UNIT SUBCUT ×2 (08:46→12:50)
[2017-12-16 10:49] LABS: Reflexed Lactate in 2 Hours Y
--- NOTE | 2017-12-16 10:55 | CM.DPC ---
DCP Cont: Nursing stated that patient seemed depressed, and wants to give up. Went ahead and met with patient, denied feeling depressed, stated that she was tired. Asked her if had been in to see her recently, and she stated he came in yesterday. Also stated that he will be here today. Discussed prison with patient, and she stated that this may be an option. Does not want [facility]. At this time, patient medically unstable, will need IV antibiotics, and PICC line is to go in today. P: DCP to continue to follow closely. Will need prison if on intermediate manager antibiotics. Felicia Flores, JAREN/Freight Weigher
[2017-12-16 11:42] LABS: Lactate 2HR (Lactic Acid Rflx) 4.2 mmol/L (0.7-2.1)
--- NOTE | 2017-12-16 12:56 | CM.DPC ---
DCP Cont: Called patient's insurance, [place]. Initially called authorization line, which is [phone]. This is the number to call when authorization is needed for skilled, but need facility tax ID number that patient is going to before authorization can be made. Called additional phone number for benefit information. Number is [phone]. Spoke to computer customer support specialist named Travis. Stated that patient is covered 100% for the first 20 days, then patient would need to pay 167.00 a day for co-payment. Reference number for call was: [id number]. Information retrieved based on when patient is getting close to discharge. Has already expressed that she does not want to go to [facility]. When patient makes a decision on skilled facility, then this can be initiated when close to discharge. P: DCP to continue to follow closely. May need custodial upon discharge. Felicia Flores RN/District Court Judge
--- NOTE | 2017-12-16 14:08 | DI.RAD.S_ITS ---
PROCEDURE: XR CHEST FOR PICC 1V INDICATIONS: line placement COMPARISON: [facility], CR, XR CHEST 1V, 12/13/2017, 12:29. [facility], CT, CT CHEST W CON, 11/03/2017, 7:52. FINDINGS: PICC was placed by the intravenous therapy team from the left side. Fluoroscopic spot film demonstrates tip of PICC likely overlying the proximal SVC. Increased pulmonary vascularity is present. Slight appearance of pleural thickening is noted within the right hemithorax, unchanged compared to prior exam. IMPRESSION: Tip of PICC likely overlies the proximal SVC. Patient is rotated. Dictated by: Glory Back M.D. on 12/16/2017 at 14:33 Approved by: Glory Back M.D. on 12/16/2017 at 14:34
[2017-12-16] MEDS: CEFTRIAXONE 1 GM/50 ML FROZ.PIGGY IV (14:52)
--- NOTE | 2017-12-16 15:28 | P.PN_ITS ---
Subjective Date Patient Seen: 12/16/17 Time Patient Seen: 15:25 Interval history: FOLLOW UP ON WEAKNESS, RLE CELLULITIS Patient seen at bedside. Patient does not feel well. He is continuing to have weakness and dizziness. She is refusing most of her PO medications. She keeps stating I just want to be left alone and go to [facility]. She denies being depressed however states she does not want to live like this anymore. States she is in pain still. No overnight events. Cellulitis is improving. Exam Vital Signs (past 8 hours): - 12/16/17 07:45 12/16/17 08:30 12/16/17 08:42 Temperature 97.8 F Pulse Rate 68 68 Respiratory Rate 17 Blood Pressure 150/83 H 150/83 H Pulse Oximetry 98 98 12/16/17 12:00 12/16/17 14:43 Temperature 98.1 F Pulse Rate 82 76 Respiratory Rate 17 20 Blood Pressure 146/85 H Pulse Oximetry 99 97 Oxygen Delivery Method Room Air Oxygen Flow Rate 0 Narrative Exam Narrative: Gen: Mild distress due to some RLE pain. AAOx3 HEENT: PERRLA BL, EOMI BL Neck: Supple, no LAD/JVD Resp: Breath sounds heard BL with some coarse sounds in the background. No wheezing/rhales appreciated CV: RRR, no murumurs GI: +BS, soft. Mild tenderness to palpation diffusely MSK: RLE swelling/redness/tenderness in the mid-calf region, medial side. Improving. 0.5cm ulcer with superficial draining on the upper aspect Skin: BL UE bruising. LUE PICC line Psych: flat, tearful affect, depressed mood. Doesn't want to talk much Objective Labs Result Diagrams: 12/16/17 06:35 12/16/17 06:35 Labs: Laboratory Results - last 24 hr 12/16/17 12/16/17 12/16/17 06:35 06:35 06:35 WBC 11.0 RBC 3.26 L Hgb 10.6 L Hct 31.4 L MCV 96.4 MCH 32.4 MCHC 33.6 RDW 15.5 H Plt Count 117 L Neut % (Auto) Not Reportable Lymph % (Auto) Not Reportable [place] % (Auto) Not Reportable Eos % (Auto) Not Reportable Baso % (Auto) Not Reportable Total Counted 100 Seg Neutrophils % 73.0 H Band Neutrophils % 8.0 H Lymphocytes % (Manual) 7.0 L Atypical Lymphs % 5.0 H Monocytes % (Manual) 5.0 Metamyelocytes % 2.0 H Neutrophils # (Manual) 8910 H RBC Morphology Normal morphology Sodium 141 Potassium 4.1 Chloride 108 H Carbon Dioxide 29 BUN 13 Creatinine 0.40 L Estimated GFR > 60.0 BUN/Creatinine Ratio 32.5 H Glucose 203 H Lactate 2.8 H Calcium 8.6 Total Bilirubin 0.5 AST 110 H ALT 222 H Alkaline Phosphatase 245 H Total Protein 5.1 L Albumin 2.9 L Globulin 2.2 Albumin/Globulin Ratio 1.3 12/16/17 11:22 WBC RBC Hgb Hct MCV MCH MCHC RDW Plt Count Neut % (Auto) Lymph % (Auto) [place] % (Auto) Eos % (Auto) Baso % (Auto) Total Counted Seg Neutrophils % Band Neutrophils % Lymphocytes % (Manual) Atypical Lymphs % Monocytes % (Manual) Metamyelocytes % Neutrophils # (Manual) RBC Morphology Sodium Potassium Chloride Carbon Dioxide BUN Creatinine Estimated GFR BUN/Creatinine Ratio Glucose Lactate 4.2 H Calcium Total Bilirubin AST ALT Alkaline Phosphatase Total Protein Albumin Globulin Albumin/Globulin Ratio Assessment & Plan Plan: Assessment/Plan Narrative: 1. RLE Cellulitis - Improving - Leukocytosis resolved, now 11.0 - Lactic Acid is labile, this morning up to 4.2 again - Wound cultures grew MRSA sensitive to Vanc...Blood cx negative - Patient's UE are swollen with difficulty placing IVs...Got PICC line placed in LUE today - Will continue IV Vancomycin as patient's Lactate is still high. Will stop Ceftriaxone. Consider PO options on discharge. - Continue IVF, monitor lactate 2. DM, Type II - BG elevated again this morning, 203 - Will increase Glargine to 20U Bedtime and Aspart 10U TIDAC and continue SSI - Frequent accuchecks, hypoglycemia protocol 3. COPD - Currently not in exacerbation as patient is saturating well on RA and no wheezing appreciated - Patient grew Serratia marcenes and MRSA in her sputum...Currently on Vanc and Ceftriaxone for Cellulitis - Continue Albuterol PRN and low dose home steroids 4. Abdominal pain - Improving, Likely due to fatty liver - LFTs elevated on admission and remain slightly elevated - Continue to monitor LFTs PT/OT on board, patient is refusing to get out of bed 15 min spent evaluating and providing care for this patient Quality VTE Deep Vein Thrombosis/Pulmonary Embolism Present on Admission: No
--- NOTE | 2017-12-16 15:32 | CM.DPC ---
DCP Cont: Patient told hospitalist that she wants to , and is refusing some treatments. Hospitalist is contacting Behavioral health to perform a psych evaluation. When this assistant case manager talked to patient prior, had denied this. At times, patient has been refusing some of her medications. P: DCP: Continue to follow patient slowly and explore options, such as Hospice care if she refuses treatments. Felicia Flores RN/[employer]
[2017-12-16 15:54] LABS: Lactate (Lactic Acid) 3.3 mmol/L (0.7-2.1)
--- NOTE | 2017-12-16 16:45 | PT.IPTN ---
Current Diagnoses Chronic obstructive pulmonary disease with (acute) exacerbation (12/13/17) Physical Therapy Treatment Note M3 PT-IP Subjective Start: 12/15/17 16:26 Freq: NEEDED Status: Active Protocol: Document 12/16/17 16:43 AB (Rec: 12/16/17 16:45 AB [id number]) Subjective Physical Therapy Visit Type Type Patient Refusal Notes checked on pt again this afternoon but was adamant that she does not want to do PT. informed pt regarding benefits of PT and d/c PT order if pt continues to refuse. Pt agrees with d/c PT order. will f/u again tomorrow but if pt continues to refuse will d /c PT eval order.
[2017-12-16] MEDS: INSULIN ASPART 100 UNIT/ML INSULN PEN 10 UNIT SUBCUT (17:02)
[2017-12-16 19:30] LABS: Reflexed Lactate in 2 Hours Y
[2017-12-16 20:22] LABS: Lactate 2HR (Lactic Acid Rflx) 2.6 mmol/L (0.7-2.1)
[2017-12-16] MEDS: INSULIN GLARGINE 100 UNIT/ML 3ML PEN 20 UNIT SUBCUT (21:32)
[2017-12-17] VITALS (12 sets, daily range): BP systolic 153–190; BP diastolic 86–110; PULSE 71–98; RESP 18–24; TEMP 36.5–37.2; O2SAT 91–98
[2017-12-17] MEDS: SODIUM CHLORIDE 0.9% 1,000 ML 125 ML IV ×2 (03:25→12:40)
[2017-12-17 05:04] LABS: Hematocrit 32.5 % (36-46); Hemoglobin 11.1 g/dL (12.0-16.0); Mean Corpuscular HGB Conc 34.1 % (30-36); Mean Corpuscular Hemoglobin 32.6 PG (26-34); Mean Corpuscular Volume 95.8 fL (80-100); Platelet Count 128 X10^3/uL (150-400); Red Cell Distribution Width 15.4 % (11.6-14.8); White Blood Cell Count 11.6 X10^3/uL (4.5-11.0)
--- NOTE | 2017-12-17 05:09 | PC.NURSE ---
Pt is A&Ox3 and able to make needs known. incontinent. denied pain. 0245 pt's BP 174/98 with some dizziness. I notified bilingual medical receptionist doctor, no new orders, just continue to monitor pt. 0430 pt's BP 190/110 to R. wrist. pt refused to have us retake her BP. I also asked pt if she is willing to take some BP meds if I called the Doctor and she refused.
[2017-12-17 05:15] LABS: BUN Creatinine Ratio 32.5 (6-22); Blood Urea Nitrogen 13 mg/dL (7-17); Calcium 8.6 mg/dL (8.4-10.2); Carbon Dioxide 29 mmol/L (22-32); Chloride 104 mmol/L (98-107); Estimated Glomerular Filt Rate > 60.0 mL/min (>60); Glucose 189 mg/dL (80-110); HEMOLYSIS < 15 (0-50); Sodium 140 mmol/L (137-145)
[2017-12-17 05:16] LABS: Add Manual Diff / Slide Review YES
[2017-12-17 05:19] LABS: Vancomycin Trough 16.1 ug/mL (10-20)
[2017-12-17] MEDS: VANCOMYCIN TROUGH 1 REQUEST MISC (05:27)
[2017-12-17] MEDS: VANCOMYCIN 1,250 MG in SODIUM CHLORIDE 0.9% 250 ML IV ×2 (05:28→16:23)
[2017-12-17 05:40] LABS: Neutrophils Absolute Manual 9744 /uL (3000-5900); Polychromasia 1+; Total Cells Counted 100
[2017-12-17] MEDS: ALBUTEROL/IPRATROPIUM 3 ML AMPUL INH (07:55)
[2017-12-17] MEDS: LISINOPRIL 5 MG TABLET PO (09:12)
[2017-12-17] MEDS: INSULIN ASPART 100 UNIT/ML INSULN PEN 10 UNIT SUBCUT ×3 (09:12→16:24)
[2017-12-17] MEDS: predniSONE 5 MG TABLET 15 MG PO ×2 (09:12→20:30)
--- NOTE | 2017-12-17 11:28 | PT.IPTN ---
Addendum entered and electronically signed by Rosa Walton, PT 12/17/17 13:02: This is to certify that I have reviewed this documentation. Original Note: Current Diagnoses Chronic obstructive pulmonary disease with (acute) exacerbation (12/13/17) Physical Therapy Treatment Note M3 PT-IP Subjective Start: 12/15/17 16:26 Freq: NEEDED Status: Active Protocol: Document 12/17/17 11:16 (Rec: 12/17/17 11:28 [id number]) Subjective Physical Therapy Visit Type Type Patient Refusal Notes Checked on pt at 9:05 and again at 9:25. Both times we are refused firmly with patient reporting severe nasea . She refuses to even open her eyes for us when asked. We described the importance of movement for healing, recovery and to maintain strength during a hospital stay. She continues to refuse and still will not open her eyes.
[2017-12-17] MEDS: INSULIN ASPART 100 UNIT/ML INSULN PEN SUBCUT ×2 (12:38→16:24)
[2017-12-17] MEDS: ACETAMINOPHEN 325 MG TABLET 650 MG PO (16:21)
--- NOTE | 2017-12-17 17:16 | P.PN_ITS ---
Subjective Date Patient Seen: 12/17/17 Time Patient Seen: 17:11 Interval history: FOLLOW UP ON WEAKNESS, RLE CELLULITIS Patient seen at bedside. Patient does not feel well. Continues to refuse most of her PO medications. Refuses to get out of bed with PT. No overnight events. Exam Vital Signs (past 8 hours): - 12/17/17 10:37 12/17/17 11:50 12/17/17 15:52 Temperature 98.1 F 98.5 F Pulse Rate 93 H 98 H Respiratory Rate 20 18 Blood Pressure 154/86 H 177/91 H Pulse Oximetry 95 95 96 Oxygen Delivery Method Room Air Oxygen Flow Rate 0 Narrative Exam Narrative: Gen: NAD. AAOx3 HEENT: PERRLA BL, EOMI BL Neck: Supple, no LAD/JVD Resp: Breath sounds heard BL with some coarse sounds in the background. No wheezing/rhales appreciated CV: RRR, no murumurs GI: +BS, soft. Mild tenderness to palpation diffusely MSK: RLE swelling/redness/tenderness in the mid-calf region, medial side. Improving. 1cm ulcer with superficial draining on the upper aspect Skin: BL UE bruising. LUE PICC line Psych: flat, tearful affect, depressed mood. Doesn't want to talk much Objective Labs Result Diagrams: 12/17/17 04:40 12/17/17 04:40 Labs: Laboratory Results - last 24 hr 12/16/17 12/17/17 12/17/17 20:07 04:40 04:40 WBC 11.6 H RBC 3.40 L Hgb 11.1 L Hct 32.5 L MCV 95.8 MCH 32.6 MCHC 34.1 RDW 15.4 H Plt Count 128 L Neut % (Auto) Not Reportable Lymph % (Auto) Not Reportable [place] % (Auto) Not Reportable Eos % (Auto) Not Reportable Baso % (Auto) Not Reportable Total Counted 100 Seg Neutrophils % 75.0 H Band Neutrophils % 9.0 H Lymphocytes % (Manual) 8.0 L Atypical Lymphs % 1.0 H Monocytes % (Manual) 5.0 Metamyelocytes % 2.0 H Neutrophils # (Manual) 9744 H RBC Morphology See below Polychromasia 1+ H Sodium Potassium Chloride Carbon Dioxide BUN Creatinine Estimated GFR BUN/Creatinine Ratio Glucose Lactate 2.6 H Calcium Vancomycin Trough 16.1 12/17/17 04:40 WBC RBC Hgb Hct MCV MCH MCHC RDW Plt Count Neut % (Auto) Lymph % (Auto) [place] % (Auto) Eos % (Auto) Baso % (Auto) Total Counted Seg Neutrophils % Band Neutrophils % Lymphocytes % (Manual) Atypical Lymphs % Monocytes % (Manual) Metamyelocytes % Neutrophils # (Manual) RBC Morphology Polychromasia Sodium 140 Potassium 4.0 Chloride 104 Carbon Dioxide 29 BUN 13 Creatinine 0.40 L Estimated GFR > 60.0 BUN/Creatinine Ratio 32.5 H Glucose 189 H Lactate Calcium 8.6 Vancomycin Trough Assessment & Plan Plan: Assessment/Plan Narrative: 1. RLE Cellulitis - Improving - Leukocytosis is stable, 11.6 - Lactic Acid is down to 2.6 - Wound cultures grew MRSA - Patient's UE are swollen with difficulty placing IVs...Got PICC line placed in LUE today - Will switch antibiotics to [id number] BID x 7 more days - Will stop IVF 2. DM, Type II - BG slightly improved but still high - Will increase Glargine to 22U Bedtime and Aspart 12U TIDAC and continue SSI - Frequent accuchecks, hypoglycemia protocol 3. COPD - Currently not in exacerbation as patient is saturating well on RA and no wheezing appreciated - Patient grew Serratia marcenes and MRSA in her sputum...Currently on Vanc and Ceftriaxone for Cellulitis - Continue Albuterol PRN and low dose home steroids 4. Abdominal pain - Improving, Likely due to fatty liver - LFTs elevated on admission and remain slightly elevated - Continue to monitor LFTs PT/OT on board, patient is refusing to get out of bed 20 min spent evaluating and providing care for this patient Quality VTE Deep Vein Thrombosis/Pulmonary Embolism Present on Admission: No
[2017-12-17] MEDS: DOXYCYCLINE HYCLATE 100 MG TABLET PO (20:30)
[2017-12-17] MEDS: INSULIN GLARGINE 100 UNIT/ML 3ML PEN 22 UNIT SUBCUT (20:30)
[2017-12-18] VITALS (9 sets, daily range): BP systolic 144–188; BP diastolic 68–105; PULSE 75–88; RESP 16–24; TEMP 36.4–37; O2SAT 94–98
[2017-12-18] MEDS: ACETAMINOPHEN 325 MG TABLET 650 MG PO (03:49)
[2017-12-18 07:02] LABS: Add Manual Diff / Slide Review NO; Basophils Percent Auto 0.7 % (0-2); Eosinophils Percent Auto 0.2 % (2-4); Hematocrit 33.6 % (36-46); Hemoglobin 11.6 g/dL (12.0-16.0); Lymphocytes Percent Auto 7.6 % (25-40); Mean Corpuscular HGB Conc 34.4 % (30-36); Mean Corpuscular Hemoglobin 32.6 PG (26-34); Mean Corpuscular Volume 94.7 fL (80-100); Monocytes Percent Auto 3.9 % (3-14); Neutrophils Absolute Auto 11200 /uL (3000-5900); Neutrophils Percent Auto 87.6 % (50-75); Platelet Count 127 X10^3/uL (150-400); Red Blood Cell Count 3.55 X10^6/uL (4.0-5.2); Red Cell Distribution Width 15.5 % (11.6-14.8); White Blood Cell Count 12.8 X10^3/uL (4.5-11.0)
[2017-12-18 07:15] LABS: Blood Urea Nitrogen 14 mg/dL (7-17); Calcium 9.1 mg/dL (8.4-10.2); Carbon Dioxide 30 mmol/L (22-32); Chloride 104 mmol/L (98-107); Estimated Glomerular Filt Rate > 60.0 mL/min (>60); Glucose 182 mg/dL (80-110); HEMOLYSIS < 15 (0-50); Potassium 3.7 mmol/L (3.4-5.1); Sodium 142 mmol/L (137-145)
--- NOTE | 2017-12-18 07:19 | PM.CN ---
History of Present Illness Date Patient Seen: 12/17/17 Time Patient Seen: 13:30 Chief complaint: SOB, Chest pain Reason for consult: Safety & depression evaluation Requesting provider: Vicki Salinas Narrative: CC: ?so I need a psychiatrist now?? HOSPITAL COURSE/COLLATERAL FROM STAFF: Admitted 12/14/17 with SOB & weakness, treated for R LE Cellulitis. Improving as of 12/16, leukocytosis resolved Discussion with Gisselle in , she was making some statements about not wanting to be alive during previous inpatient stay as well. She has not had much interaction with pt?s , but states that he is a difficult historian as well. Possibly some incentive for pt to be in the hospital, and left [facility] after [facility]d following previous d/c there. Ongoing conflict with daughter, challenging family dynamics. Discussion with nursing: Pt consistently refusing lovenox stating that she wants to get a blood clot, but accepting most other meds, lack of engagement, not asking to use the restroom even though she knows she can & soiling her bed. Seems like she has given up. When asked about her daughter today became tearful. Chart review 12/17/17 shows that pt is not refusing medications uniformly, consistently refusing lovenox. INTERVIEW: Cheryl is lying in bed on her side when I arrive. She is surprised at my visit. When asked why she is in the hospital, she endorses being weak, with fall prior to admission. She reports not knowing what is causing the weakness. When asked what she is being treated for at the hospital she states she doesn?t know. She reports ?I?m not depressed? and denies any h/o depression. She reports having no quality of life ?would you want to go on like me?? and ?what?s the point of quantity with no quality?? When asked what might give her quality of life, or what she wants to do, she states I don?t know & does not engage with further questioning on this. She denies feeling confused or disoriented while in the hospital. She denies hallucinations. She denies active plan or intent to end her life, but states that she hopes that ?the man upstairs? expedites her . I explained my concerns about depression clouding someone?s thinking. I also explained that it would be very helpful for me to hear her understanding of her medical conditions, but she does not engage. PAST PSYCHIATRIC HISTORY: No known psychiatric history, although this is limited in interview today by pt?s lack of ability/willingness to engage. Unable to obtain collateral information due to time constraints & inability to connect with pt?s . FAMILY HISTORY: Unable to obtain due to patient?s lack of engagement & difficulty contacting collateral SOCIAL HISTORY: lives in with her . Current smoker. Some alcohol. DEVELOPMENTAL HISTORY: Unable to obtain due to limited pt engagement PCP: none currently SIGNIFICANT MEDICAL HISTORY: Per 12/13/17 H&P: Acute and chronic respiratory failure (Resolved) Generalized weakness (Chronic) Pneumonia (Resolved) COPD (chronic obstructive pulmonary disease) (Chronic) Chronic steroid use (Chronic) Diabetes type 2, uncontrolled (Chronic) Fatty liver disease, nonalcoholic (Chronic) [facility] Medical History Acute and chronic respiratory failure (Resolved) Generalized weakness (Chronic) Pneumonia (Resolved) COPD (chronic obstructive pulmonary disease) (Chronic) Chronic steroid use (Chronic) Diabetes type 2, uncontrolled (Chronic) Fatty liver disease, nonalcoholic (Chronic) Surgical History No pertinent past surgical history (Chronic) Social History household members: spouse Smoking Status: Current every day smoker Meds Home Medications Medication Instructions Recorded Confirmed Type prednisone 15 mg PO BID 11/03/17 12/13/17 History insulin aspart U-100 [Novolog 0 unit SUBCUT AC #1 device 11/07/17 12/13/17 Rx Flexpen U-100 Insulin] insulin glargine [Lantus Solostar 15 unit SUBCUT BEDTIME #1 device 11/07/17 12/13/17 Rx U-100 Insulin] albuterol sulfate 3 ml INH Q4HP PRN 12/13/17 12/13/17 History lisinopril 5 mg PO DAILY 12/13/17 12/13/17 History Allergies Allergy/AdvReac Type Severity Reaction Status Date / Time avocado [AVOCADO] Allergy Intermediate VOMITING Verified 12/13/17 12:40 Penicillins [PENICILLINS] Allergy Intermediate RASH Verified 12/13/17 12:40 Sulfa (Sulfonamide Allergy Intermediate FEELING Verified 12/13/17 12:40 Antibiotics) HOT-SWEATING [SULFA (SULFONAMIDE TO ANTIBIOTICS)] FREEZING COL Review of Systems Review of Systems Difficult to obtain full ROS on interview due to lack of pt engagement, see hospitalist notes from same day Exam Vital Signs (past 8 hours): - 12/18/17 00:30 12/18/17 03:50 Temperature 97.8 F 97.8 F Pulse Rate 75 80 Respiratory Rate 16 20 Blood Pressure 144/92 H 188/105 H Pulse Oximetry 94 95 Oxygen Delivery Method Room Air Oxygen Flow Rate 0 Narrative Exam Narrative: MENTAL STATUS EXAM Appearance: older female with fair complexion, hair uncombed & dyed with roots grown out, hospital garb, long fingernails Behavior: lying on side in bed, limited eye contact, +psychomotor slowing Speech: limited answers, fairly monotone, normal volume & slightly slowed Mood: I?m not depressed Affect: incongruent, constricted, dysthymic Thought Process: guarded, concrete Thought Content: + SI with plan to refuse some medications but no other active plan, denies intent to actively end her life, no evidence of HI, denies AVH, no clear paranoia Attention: distractible Orientation: to place as hospital, to date as ?I don?t know, the 2017, October? Memory: some impairment, difficulty to assess based on lack of pt engagement Insight: Limited Judgment: Limited Objective Labs Result Diagrams: 12/18/17 06:35 12/18/17 06:35 Labs: Laboratory Results - last 24 hr 12/18/17 12/18/17 06:35 06:35 WBC 12.8 H RBC 3.55 L Hgb 11.6 L Hct 33.6 L MCV 94.7 MCH 32.6 MCHC 34.4 RDW 15.5 H Plt Count 127 L Neut % (Auto) 87.6 H Lymph % (Auto) 7.6 L [place] % (Auto) 3.9 Eos % (Auto) 0.2 L Baso % (Auto) 0.7 Neut # (Auto) 42106 H Sodium 142 Potassium 3.7 Chloride 104 Carbon Dioxide 30 BUN 14 Creatinine 0.50 L Estimated GFR > 60.0 BUN/Creatinine Ratio 28.0 H Glucose 182 H Calcium 9.1 Assessment & Plan (1) Mood disorder with depressive features due to general medical condition: Current visit: Yes Status: Acute (2) Generalized weakness: Problem details: Continue PT/ OT Current visit: No Status: Chronic (3) COPD (chronic obstructive pulmonary disease): Current visit: No Status: Acute Plan: Assessment/Plan Narrative: ASSESSMENT: Cheryl Stokes is a 72-year-old female admitted for 2nd time to our facility in the past 2 mo for RLE Cellulitis & recent fall. Consultation was requested for safety assessment with patient refusing some care & meds based on wanting her life to be over. On my exam, she is minimally engaged & demonstrates minimal effort to answer questions meaningfully. Although she insists she is not depressed, her presentation is consistent with demoralization and depression likely due to chronic medical conditions including COPD and poorly controlled diabetes. In terms of safety, she is endorsing thoughts of wanting her to be hastened, but only behavior aimed at ending her life is passively refusing some treatment that could lead to hastened (refusing Lovenox with known possibility of getting a blood clot). I do not have evidence of any imminent risk of harm to self in the hospital, which would be needed to pursue involuntary psychiatric treatment. I suspect that depression is impacting her ability to engage in medical care and make informed decisions about accepting or refusing specific treatments. I recommend engagement in outpatient treatment which could be accomplished with a primary care physician to consider adequate treatment of her chronic medical conditions and consider brief psychotherapy or antidepressant medication to address depression symptoms. However, based on patient?s pattern of not continuing care outside of the hospital setting in recent months, I acknowledge that outpatient care is unlikely to happen. However, I do not have evidence or rationale to compel involuntary treatment, and patient will not accept voluntary psychiatric treatment at this time. DIAGNOSES: Depression due to chronic medical conditions (COPD, DMII) RECOMMENDATIONS: - In the hospital, continue to encourage pt to engage in medical care such as PT, accepting medications, etc - Engagement with primary care provider to address chronic medical conditions. Antidepressant medication such as SSRI could be considered to address depression. Thank you for involving me in this patient's care. I will sign off at this time, and will be off campus until Wednesday12/20/17 . Please contact me with questions or concerns at [phone]. Time Spent With Patient Time with patient: 25 - 35 minutes
--- NOTE | 2017-12-18 07:24 | P.CONS_ITS ---
History of Present Illness Date Patient Seen: 12/17/17 Time Patient Seen: 13:30 Chief complaint: SOB, Chest pain Reason for consult: Safety & depression evaluation Requesting provider: Vicki Salinas Narrative: CC: ?so I need a psychiatrist now?? HOSPITAL COURSE/COLLATERAL FROM STAFF: Admitted 12/14/17 with SOB & weakness, treated for R LE Cellulitis. Improving as of 12/16, leukocytosis resolved Discussion with Gisselle in , she was making some statements about not wanting to be alive during previous inpatient stay as well. She has not had much interaction with pt?s , but states that he is a difficult historian as well. Possibly some incentive for pt to be in the hospital, and left [facility] after [facility] following previous d/c there. Ongoing conflict with daughter, challenging family dynamics. Discussion with nursing: Pt consistently refusing lovenox stating that she wants to get a blood clot, but accepting most other meds, lack of engagement, not asking to use the restroom even though she knows she can & soiling her bed. Seems like she has given up. When asked about her daughter today became tearful. Chart review 12/17/17 shows that pt is not refusing medications uniformly, consistently refusing lovenox. INTERVIEW: Cheryl is lying in bed on her side when I arrive. She is surprised at my visit. When asked why she is in the hospital, she endorses being weak, with fall prior to admission. She reports not knowing what is causing the weakness. When asked what she is being treated for at the hospital she states she doesn?t know. She reports ?I?m not depressed? and denies any h/o depression. She reports having no quality of life ?would you want to go on like me?? and ?what?s the point of quantity with no quality?? When asked what might give her quality of life, or what she wants to do, she states I don?t know & does not engage with further questioning on this. She denies feeling confused or disoriented while in the hospital. She denies hallucinations. She denies active plan or intent to end her life, but states that she hopes that ?the man upstairs? expedites her . I explained my concerns about depression clouding someone?s thinking. I also explained that it would be very helpful for me to hear her understanding of her medical conditions, but she does not engage. PAST PSYCHIATRIC HISTORY: No known psychiatric history, although this is limited in interview today by pt? s lack of ability/willingness to engage. Unable to obtain collateral information due to time constraints & inability to connect with pt?s . FAMILY HISTORY: Unable to obtain due to patient?s lack of engagement & difficulty contacting collateral SOCIAL HISTORY: lives in with her . Current smoker. Some alcohol. DEVELOPMENTAL HISTORY: Unable to obtain due to limited pt engagement PCP: none currently SIGNIFICANT MEDICAL HISTORY: Per 12/13/17 H&P: Acute and chronic respiratory failure (Resolved) Generalized weakness (Chronic) Pneumonia (Resolved) COPD (chronic obstructive pulmonary disease) (Chronic) Chronic steroid use (Chronic) Diabetes type 2, uncontrolled (Chronic) Fatty liver disease, nonalcoholic (Chronic) PENDING SALE TO [facility] Medical History Acute and chronic respiratory failure (Resolved) Generalized weakness (Chronic) Pneumonia (Resolved) COPD (chronic obstructive pulmonary disease) (Chronic) Chronic steroid use (Chronic) Diabetes type 2, uncontrolled (Chronic) Fatty liver disease, nonalcoholic (Chronic) Surgical History No pertinent past surgical history (Chronic) Social History household members: spouse Smoking Status: Current every day smoker Meds Home Medications Medication Instructions Recorded Confirmed Type prednisone 15 mg PO BID 11/03/17 12/13/17 History insulin aspart U-100 [Novolog 0 unit SUBCUT AC #1 device 11/07/17 12/13/17 Rx Flexpen U-100 Insulin] insulin glargine [Lantus Solostar 15 unit SUBCUT BEDTIME #1 device 11/07/17 Rx U-100 Insulin] albuterol sulfate 3 ml INH Q4HP PRN 12/13/17 12/13/17 History lisinopril 5 mg PO DAILY 12/13/17 12/13/17 History Allergies Allergy/AdvReac Type Severity Reaction Status Date / Time avocado [AVOCADO] Allergy Intermediate VOMITING Verified 12/13/17 12:40 Penicillins [PENICILLINS] Allergy Intermediate RASH Verified 12/13/17 12:40 Sulfa (Sulfonamide Allergy Intermediate FEELING Verified 12/13/17 12:40 Antibiotics) HOT-SWEATING [SULFA (SULFONAMIDE TO ANTIBIOTICS)] FREEZING COL Review of Systems Review of Systems Difficult to obtain full ROS on interview due to lack of pt engagement, see hospitalist notes from same day Exam Vital Signs (past 8 hours): - 12/18/17 00:30 12/18/17 03:50 Temperature 97.8 F 97.8 F Pulse Rate 75 80 Respiratory Rate 16 20 Blood Pressure 144/92 H 188/105 H Pulse Oximetry 94 95 Oxygen Delivery Method Room Air Oxygen Flow Rate 0 Narrative Exam Narrative: MENTAL STATUS EXAM Appearance: older female with fair complexion, hair uncombed & dyed with roots grown out, hospital garb, long fingernails Behavior: lying on side in bed, limited eye contact, +psychomotor slowing Speech: limited answers, fairly monotone, normal volume & slightly slowed Mood: I?m not depressed Affect: incongruent, constricted, dysthymic Thought Process: guarded, concrete Thought Content: + SI with plan to refuse some medications but no other active plan, denies intent to actively end her life, no evidence of HI, denies AVH, no clear paranoia Attention: distractible Orientation: to place as hospital, to date as ?I don?t know, the 2017, October? Memory: some impairment, difficulty to assess based on lack of pt engagement Insight: Limited Judgment: Limited Objective Labs Result Diagrams: 12/18/17 06:35 12/18/17 06:35 Labs: Laboratory Results - last 24 hr 12/18/17 12/18/17 06:35 06:35 WBC 12.8 H RBC 3.55 L Hgb 11.6 L Hct 33.6 L MCV 94.7 MCH 32.6 MCHC 34.4 RDW 15.5 H Plt Count 127 L Neut % (Auto) 87.6 H Lymph % (Auto) 7.6 L [place] % (Auto) 3.9 Eos % (Auto) 0.2 L Baso % (Auto) 0.7 Neut # (Auto) 87369 H Sodium 142 Potassium 3.7 Chloride 104 Carbon Dioxide 30 BUN 14 Creatinine 0.50 L Estimated GFR > 60.0 BUN/Creatinine Ratio 28.0 H Glucose 182 H Calcium 9.1 Assessment & Plan (1) Mood disorder with depressive features due to general medical condition: Current visit: Yes Status: Acute (2) Generalized weakness: Problem details: Continue PT/ OT Current visit: No Status: Chronic (3) COPD (chronic obstructive pulmonary disease): Current visit: No Status: Acute Plan: Assessment/Plan Narrative: ASSESSMENT: Cheryl Stokes is a 72-year-old female admitted for 2nd time to our facility in the past 2 mo for RLE Cellulitis & recent fall. Consultation was requested for safety assessment with patient refusing some care & meds based on wanting her life to be over. On my exam, she is minimally engaged & demonstrates minimal effort to answer questions meaningfully. Although she insists she is not depressed, her presentation is consistent with demoralization and depression likely due to chronic medical conditions including COPD and poorly controlled diabetes. In terms of safety, she is endorsing thoughts of wanting her to be hastened, but only behavior aimed at ending her life is passively refusing some treatment that could lead to hastened (refusing Lovenox with known possibility of getting a blood clot). I do not have evidence of any imminent risk of harm to self in the hospital, which would be needed to pursue involuntary psychiatric treatment. I suspect that depression is impacting her ability to engage in medical care and make informed decisions about accepting or refusing specific treatments. I recommend engagement in outpatient treatment which could be accomplished with a primary care physician to consider adequate treatment of her chronic medical conditions and consider brief psychotherapy or antidepressant medication to address depression symptoms. However, based on patient?s pattern of not continuing care outside of the hospital setting in recent months, I acknowledge that outpatient care is unlikely to happen. However, I do not have evidence or rationale to compel involuntary treatment, and patient will not accept voluntary psychiatric treatment at this time. 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 Antidepressant medication such as SSRI could be considered to address depression. Thank you for involving me in this patient's care. I will sign off at this time , and will be off campus until Wednesday12/20/17 . Please contact me with questions or concerns at [phone]. Time Spent With Patient Time with patient: 25 - 35 minutes
[2017-12-18] MEDS: INSULIN ASPART 100 UNIT/ML INSULN PEN SUBCUT ×2 (09:09→17:21)
[2017-12-18] MEDS: INSULIN ASPART 100 UNIT/ML INSULN PEN 12 UNIT SUBCUT ×2 (09:10→17:21)
[2017-12-18] MEDS: DOXYCYCLINE HYCLATE 100 MG TABLET PO ×2 (09:12→21:03)
[2017-12-18] MEDS: LISINOPRIL 5 MG TABLET PO (09:12)
[2017-12-18] MEDS: predniSONE 5 MG TABLET 15 MG PO ×2 (09:12→21:03)
--- NOTE | 2017-12-18 14:27 | CM.DPC ---
Addendum entered by Gisselle Romero LPN 12/18/17 14:41: Dr. Salinas will see pt shortly and will be there as planned. In meantime just spoke with PT Bertin. He reports he found pt lying in bed, talking on her cell phone. He had a discussion with her, she reported that she needed to use the BR and he offered to assist her into BR or to bring a BSC. He reports her demeanor changed quickly from friendly to firm refusal and that she wanted only my nurse and a bedpan. Original Note: DCP: continued: Case received and discussed in Team Rounds. Per care team members including Dr. Salinas pt has continued to refuse most of the recommended care. Psychiatrist Dr. Houston was consulted, was pt yesterday afternoon and has discussed her recommendations with Dr. Salinas. PT and OT have tried several times to work with pt and she is refusing. After rounds, order was again obtained for PT as Dr. Salinas says she does intend to d/c pt to home today and PT Bertin will attempt to see pt now. Went to room earlier this afternoon, noted droplet precautions on door, heard pt coughing in room. JAREN Phelps states pt is on precautions as has MRSA in sputum. Pt in noted to be curled up in bed. Decision made to discuss again with Dr. Salinas. Attempted to contact pt's spouse Wong [phone] is cell number listed for him at last admission. As no identifier is on the voice mail left a very generic message with request that Wong call the hospital d/c case planner direct line for further discussion. JAREN Phelps says that her understanding is that pt's spouse comes here in the evening for visits. His contact number has not been obtained as far as she is aware. P: be present when Dr. Salinas discussed POC
--- NOTE | 2017-12-18 14:42 | PT.IPTN ---
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 (12/13/17) Chronic obstructive pulmonary disease with (acute) exacerbation (12/13/17) Chronic obstructive pulmonary disease, unspecified (12/13/17) Weakness (12/13/17) Physical Therapy Treatment Note M3 PT-IP Subjective Start: 12/15/17 16:26 Freq: NEEDED Status: Active Protocol: Document 12/18/17 14:42 [facility] (Rec: 12/18/17 14:43 [facility] [id number]) Subjective Physical Therapy Visit Type Type Patient Refusal Notes pt initially talking on cell phone, upon call being terminated, pt stated she needed to go to the bathroom. Attempted to get pt motivated to get OOB to BR or BSC, she refused, stated I want my nurse, get me my nurse. Unable to perform PT evaluation this afternoon. M7 PT-IP Assessment and Plan Start: 12/15/17 16:26 Freq: NEEDED Status: Active Protocol: Document 12/17/17 12:29 (Rec: 12/17/17 12:29 [id number]) PT Summary Assessment and Plan Frequency of Treatment Frequency Of Treatment Discharge
--- NOTE | 2017-12-18 15:40 | PT.IIE ---
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 (12/13/17) Chronic obstructive pulmonary disease with (acute) exacerbation (12/13/17) Chronic obstructive pulmonary disease, unspecified (12/13/17) Weakness (12/13/17) Surgical History (Last Reviewed 12/14/17 @ 17:48 by Primitivo Miller MD) No pertinent past surgical history (Chronic) Medical History (Last Reviewed 12/14/17 @ 17:48 by Primitivo Miller MD) Acute and chronic respiratory failure (Resolved) Generalized weakness (Chronic) Pneumonia (Resolved) COPD (chronic obstructive pulmonary disease) (Chronic) Chronic steroid use (Chronic) Diabetes type 2, uncontrolled (Chronic) Fatty liver disease, nonalcoholic (Chronic) Physical Therapy Inpatient Evaluation/Re-Eval M1 PT/OT-IP Prior Functional Status Start: 12/15/17 16:26 Freq: NEEDED Status: Active Protocol: Document 12/18/17 15:40 [facility] (Rec: 12/18/17 16:46 RCC [id number]) Medical Review Prior Functional Status Mobility and Gait modified indep. indoor/ household gait only, no AD because no room in trailer for one. Assistance with all mobility per pt. Activities of Daily Living and IADL's assist with ADLs Social History Household Members spouse Living Arrangements RV Number of Floors (Floors) One Floor Number of Stairs To Enter/Railing? 4 SE rail on L ascending, 3 steps inside without a railing into/from living room area. Home Environment Walk in Shower Home Equipment Four Wheel Walker M2 PT-IP Current Condition Start: 12/15/17 16:26 Freq: NEEDED Status: Active Protocol: Document 12/18/17 15:40 [facility] (Rec: 12/18/17 16:46 [facility] [id number]) Physical Therapy Current Condition Current Condition Evaluation Date 11/05/17 Treatment Diagnosis SOB, weak, RLE cellulitis, impaired activity tolerance Precautions Other Precautions falls, wound on R lower leg M3 PT-IP Subjective Start: 12/15/17 16:26 Freq: NEEDED Status: Active Protocol: Document 12/18/17 15:40 [facility] (Rec: 12/18/17 16:46 [facility] [id number]) Subjective Physical Therapy Visit Type Type Initial Evaluation Visit Start Time 15:40 Visit Stop Time 15:55 Total Visit Minutes 15 Notes MD in room during mobility portion of evaluation. Number of [employer] MA[employer]GER [employer] SALES Visits 0 Physical Therapy Visit Comments Patient Comments pt willing to mobilize OOB. She c/o dizziness standing. Patient Goals feel better. M4 PT-IP Mobility and Gait Start: 12/15/17 16:26 Freq: NEEDED Status: Active Protocol: Document 12/18/17 15:40 [facility] (Rec: 12/18/17 16:46 [facility] [id number]) PT-Bed Mobility Assessment Supine to Sit Supine to Sit Moderate Assistance 2 Person Assistance Head of Bed Elevated Sit to Supine Sit to Supine Moderate Assistance 2 Person Assistance Head of Bed Elevated Scooting Scooting to Edge of Bed Standby Assistance Scooting Up and Down in Bed Minimal Assistance PT-Transfer Assessment Sit to and From Stand Sit to and from Stand Minimal Assistance 2 Person Assistance Equipment Transfer Assistive Device Gait Belt Front Wheeled Walker Comments Mobility Comments pt able to take 1 step partially forward, c/o dizziness, therefore sat back down into bed. PT-Balance Assessment Sitting Balance and Reactions Static Sitting Balance Ability Good Standing Balance and Reactions Static Standing Balance Ability Poor Dynamic Standing Balance Ability Poor Device Used FWW M5 PT-IP Objective Assessments Start: 12/15/17 16:26 Freq: NEEDED Status: Active Protocol: Document 12/18/17 15:40 [facility] (Rec: 12/18/17 16:46 [facility] [id number]) Orientation Orientation/Cognition Level of Alertness Alert Gross Range of Motion Lower Extremity ROM Impairments full extension, flexion to at least 90 deg bilaterally. Strength Lower Extremity Strength Hip flexion 3/5 B Knee flexion and extension 3+/5 B Ankle not able to test M6 PT-IP Treatment Start: 12/15/17 16:26 Freq: NEEDED Status: Active Protocol: Document 12/18/17 15:40 [facility] (Rec: 12/18/17 16:46 [facility] [id number]) Physical Therapy Treatment Education Education Provided Safety M7 PT-IP Assessment and Plan Start: 12/15/17 16:26 Freq: NEEDED Status: Active Protocol: Document 12/18/17 15:40 [facility] (Rec: 12/18/17 16:46 [facility] [id number]) PT Summary Assessment and Plan Potential Rehabilitation Potential Good Status of Condition at Evaluation Evolving Summary Impairments Strength Balance Bed Mobility Transfers Gait Activity Tolerance Assessment Summary Pt willing participant in bed mobility and standing, able to take a partial step forward with the L foot using a FWW this session. She c/o dizziness, and fatigues rapidly. Overall, pt is not fit to return home at this point, as she is not able to tolerate functional forward gait or transfers at this time . She will require further physical therapy during this episode of care to safely progress her mobility, gait, and activity tolerance. At this time, the burden of care is too high for the pt to be safely assisted and managed at home. Goals Bed Mobility Goal Minimal Assistance Transfer Goal Minimal Assistance Front Wheeled Walker Gait Goal Minimal Assistance Front Wheel Walker Gait Distance 50 ft Other Goals up/down 4 steps L ascending rail and Min A Days to Meet Goals 3 Frequency of Treatment Frequency Of Treatment Once a Day Treatment Plan Physical Therapy Treatment Plan Bed Mobility Training Transfer Training Gait Training Therapeutic Exercise Balance Retraining Discharge Planning Neuromuscular Re-ed Recommendations To Nursing Amount of Assist Needed PT/OT Assist Only Discharge Recommendations PT Discharge Recommendations SNF Rehab
--- NOTE | 2017-12-18 15:56 | PM.PN.1 ---
Subjective Date Patient Seen: 12/18/17 Time Patient Seen: 15:56 Interval history: FOLLOW UP ON WEAKNESS, RLE CELLULITIS Patient seen at bedside. Had a long conversation with the patient and senior materials planner, Gisselle, regarding patient's situation. We discussed with the patient regarding her refusal to work with physical therapy and occupational therapy for strengthening. Patient understood that she needs to be willing to show effort in getting out of bed and ambulating, before she can be considered for a halfway placement. Patient agreed to try to work with therapy again. She later worked with PT and was able to get out of bed and make one step forward. Later, when she sat down, she was able to support her body to scootch herself back . Exam Vital Signs (past 8 hours): - 12/18/17 08:15 12/18/17 10:21 12/18/17 12:15 Temperature 97.6 F 98.2 F Pulse Rate 83 86 Respiratory Rate 16 24 Blood Pressure 154/87 H 181/83 H Pulse Oximetry 96 96 97 Oxygen Delivery Method Room Air Oxygen Flow Rate 0 Narrative Exam Narrative: Gen: NAD. AAOx3 HEENT: PERRLA BL, EOMI BL Neck: Supple, no LAD/JVD Resp: Breath sounds heard BL with some coarse sounds in the background. No wheezing/rhales appreciated CV: RRR, no murumurs GI: +BS, soft. Non tender to palpation MSK: RLE swelling/redness/tenderness in the mid-calf region, medial side. Improving. 1cm ulcer with superficial draining on the upper aspect Skin: BL UE bruising. LUE PICC line Psych: more interractive today, although not so much willing Objective Labs Result Diagrams: 12/18/17 06:35 12/18/17 06:35 Labs: Laboratory Results - last 24 hr 12/18/17 12/18/17 06:35 06:35 WBC 12.8 H RBC 3.55 L Hgb 11.6 L Hct 33.6 L MCV 94.7 MCH 32.6 MCHC 34.4 RDW 15.5 H Plt Count 127 L Neut % (Auto) 87.6 H Lymph % (Auto) 7.6 L [place] % (Auto) 3.9 Eos % (Auto) 0.2 L Baso % (Auto) 0.7 Neut # (Auto) 03409 H Sodium 142 Potassium 3.7 Chloride 104 Carbon Dioxide 30 BUN 14 Creatinine 0.50 L Estimated GFR > 60.0 BUN/Creatinine Ratio 28.0 H Glucose 182 H Calcium 9.1 Assessment & Plan Plan: Assessment/Plan Narrative: 1. RLE Cellulitis - Improving - Leukocytosis is stable - Wound cultures grew MRSA - Continue Doxycycline 100mg BID x 6 more days 2. DM, Type II - BG better controlled now - Continue Glargine to 22U Bedtime and Aspart 12U TIDAC and continue SSI - Frequent accuchecks, hypoglycemia protocol 3. COPD - Currently not in exacerbation as patient is saturating well on RA and no wheezing appreciated - Patient grew Serratia marcenes and MRSA in her sputum...Currently on Vanc and Ceftriaxone for Cellulitis - Continue Albuterol PRN and low dose home steroids 4. Abdominal pain - Resolving, Likely due to fatty liver - LFTs elevated on admission and remain slightly elevated - Continue to monitor LFTs PT/OT on board, will continue to work with patient 20 min spent evaluating and providing care for this patient Quality VTE Deep Vein Thrombosis/Pulmonary Embolism Present on Admission: No
--- NOTE | 2017-12-18 16:00 | P.PN_ITS ---
Subjective Date Patient Seen: 12/18/17 Time Patient Seen: 15:56 Interval history: FOLLOW UP ON WEAKNESS, RLE CELLULITIS Patient seen at bedside. Had a long conversation with the patient and personal financial planner, Gisselle, regarding patient's situation. We discussed with the patient regarding her refusal to work with physical therapy and occupational therapy for strengthening. Patient understood that she needs to be willing to show effort in getting out of bed and ambulating, before she can be considered for a jail placement. Patient agreed to try to work with therapy again. She later worked with PT and was able to get out of bed and make one step forward. Later, when she sat down, she was able to support her body to scootch herself back . Exam Vital Signs (past 8 hours): - 12/18/17 08:15 12/18/17 10:21 12/18/17 12:15 Temperature 97.6 F 98.2 F Pulse Rate 83 86 Respiratory Rate 16 24 Blood Pressure 154/87 H 181/83 H Pulse Oximetry 96 96 97 Oxygen Delivery Method Room Air Oxygen Flow Rate 0 Narrative Exam Narrative: Gen: NAD. AAOx3 HEENT: PERRLA BL, EOMI BL Neck: Supple, no LAD/JVD Resp: Breath sounds heard BL with some coarse sounds in the background. No wheezing/rhales appreciated CV: RRR, no murumurs GI: +BS, soft. Non tender to palpation MSK: RLE swelling/redness/tenderness in the mid-calf region, medial side. Improving. 1cm ulcer with superficial draining on the upper aspect Skin: BL UE bruising. LUE PICC line Psych: more interractive today, although not so much willing Objective Labs Result Diagrams: 12/18/17 06:35 12/18/17 06:35 Labs: Laboratory Results - last 24 hr 12/18/17 12/18/17 06:35 06:35 WBC 12.8 H RBC 3.55 L Hgb 11.6 L Hct 33.6 L MCV 94.7 MCH 32.6 MCHC 34.4 RDW 15.5 H Plt Count 127 L Neut % (Auto) 87.6 H Lymph % (Auto) 7.6 L [place] % (Auto) 3.9 Eos % (Auto) 0.2 L Baso % (Auto) 0.7 Neut # (Auto) 11040 H Sodium 142 Potassium 3.7 Chloride 104 Carbon Dioxide 30 BUN 14 Creatinine 0.50 L Estimated GFR > 60.0 BUN/Creatinine Ratio 28.0 H Glucose 182 H Calcium 9.1 Assessment & Plan Plan: Assessment/Plan Narrative: 1. RLE Cellulitis - Improving - Leukocytosis is stable - Wound cultures grew MRSA - Continue Doxycycline 100mg BID x 6 more days 2. DM, Type II - BG better controlled now - Continue Glargine to 22U Bedtime and Aspart 12U TIDAC and continue SSI - Frequent accuchecks, hypoglycemia protocol 3. COPD - Currently not in exacerbation as patient is saturating well on RA and no wheezing appreciated - Patient grew Serratia marcenes and MRSA in her sputum...Currently on Vanc and Ceftriaxone for Cellulitis - Continue Albuterol PRN and low dose home steroids 4. Abdominal pain - Resolving, Likely due to fatty liver - LFTs elevated on admission and remain slightly elevated - Continue to monitor LFTs PT/OT on board, will continue to work with patient 20 min spent evaluating and providing care for this patient Quality VTE Deep Vein Thrombosis/Pulmonary Embolism Present on Admission: No
[2017-12-18] MEDS: INSULIN GLARGINE 100 UNIT/ML 3ML PEN 22 UNIT SUBCUT (21:01)
[2017-12-19] VITALS (10 sets, daily range): BP systolic 120–165; BP diastolic 67–95; PULSE 71–102; RESP 16–24; TEMP 36.5–36.8; O2SAT 95–100
[2017-12-19 07:20] LABS: Add Manual Diff / Slide Review NO; Basophils Percent Auto 0.6 % (0-2); Eosinophils Percent Auto 0.2 % (2-4); Hematocrit 34.1 % (36-46); Hemoglobin 11.7 g/dL (12.0-16.0); Lymphocytes Percent Auto 7.8 % (25-40); Mean Corpuscular HGB Conc 34.1 % (30-36); Mean Corpuscular Hemoglobin 32.3 PG (26-34); Mean Corpuscular Volume 94.6 fL (80-100); Monocytes Percent Auto 4.9 % (3-14); Neutrophils Absolute Auto 12000 /uL (3000-5900); Neutrophils Percent Auto 86.5 % (50-75); Platelet Count 135 X10^3/uL (150-400); Red Blood Cell Count 3.61 X10^6/uL (4.0-5.2); Red Cell Distribution Width 15.5 % (11.6-14.8); White Blood Cell Count 13.9 X10^3/uL (4.5-11.0)
[2017-12-19 07:21] LABS: BUN Creatinine Ratio 47.5 (6-22); Blood Urea Nitrogen 19 mg/dL (7-17); Carbon Dioxide 32 mmol/L (22-32); Chloride 103 mmol/L (98-107); Estimated Glomerular Filt Rate > 60.0 mL/min (>60); Glucose 121 mg/dL (80-110); HEMOLYSIS < 15 (0-50); Potassium 3.9 mmol/L (3.4-5.1); Sodium 141 mmol/L (137-145)
[2017-12-19] MEDS: DOXYCYCLINE HYCLATE 100 MG TABLET PO ×2 (09:26→21:07)
[2017-12-19] MEDS: predniSONE 5 MG TABLET 15 MG PO ×2 (09:26→21:07)
[2017-12-19] MEDS: LISINOPRIL 5 MG TABLET PO (09:26)
--- NOTE | 2017-12-19 12:25 | P.PN_ITS ---
Subjective Date Patient Seen: 12/19/17 Time Patient Seen: 12:19 Interval history: FOLLOW UP ON WEAKNESS, RLE CELLULITIS Patient seen at bedside. She is more energetic today. Seems to have more interest in life. Agreeable to work with physical therapy. No overnight events. Exam Vital Signs (past 8 hours): - 12/19/17 08:15 12/19/17 11:03 Temperature 97.9 F Pulse Rate 88 Respiratory Rate 24 Blood Pressure 165/95 H Pulse Oximetry 98 95 Oxygen Delivery Method Room Air Oxygen Flow Rate 0 Narrative Exam Narrative: Gen: NAD. AAOx3 HEENT: PERRLA BL, EOMI BL Neck: Supple, no LAD/JVD Resp: Breath sounds heard BL with some coarse sounds in the background. No wheezing/rhales appreciated CV: RRR, no murumurs GI: +BS, soft. Non tender to palpation MSK: RLE swelling/redness/tenderness in the mid-calf region, medial side. Improving. 1cm ulcer with superficial draining on the upper aspect Skin: BL UE bruising. LUE PICC line Psych: more interractive today Objective Labs Result Diagrams: 12/19/17 07:07 12/19/17 07:07 Labs: Laboratory Results - last 24 hr 12/19/17 12/19/17 07:07 07:07 WBC 13.9 H RBC 3.61 L Hgb 11.7 L Hct 34.1 L MCV 94.6 MCH 32.3 MCHC 34.1 RDW 15.5 H Plt Count 135 L Neut % (Auto) 86.5 H Lymph % (Auto) 7.8 L [place] % (Auto) 4.9 Eos % (Auto) 0.2 L Baso % (Auto) 0.6 Neut # (Auto) 06777 H Sodium 141 Potassium 3.9 Chloride 103 Carbon Dioxide 32 BUN 19 H Creatinine 0.40 L Estimated GFR > 60.0 BUN/Creatinine Ratio 47.5 H Glucose 121 H Calcium 9.0 Assessment & Plan Plan: Assessment/Plan Narrative: 1. RLE Cellulitis - Improving in appearance, but continues to have drainable ulcer - Leukocytosis is labile, although patient is on chronic prednisone use - Wound cultures grew MRSA - Continue Doxycycline 100mg BID x 5 more days (sensitive to Doxycycline) - Will consult wound care for treatment of chronic drainage 2. DM, Type II - BG better controlled now - Continue Glargine to 22U Bedtime and Aspart 12U TIDAC and continue SSI - Frequent accuchecks, hypoglycemia protocol 3. COPD - Currently not in exacerbation as patient is saturating well on RA and no wheezing appreciated - Patient grew Serratia marcenes and MRSA in her sputum...Currently on Vanc and Ceftriaxone for Cellulitis - Continue Albuterol PRN and low dose home steroids 4. Abdominal pain - Resolving, Likely due to fatty liver - LFTs elevated on admission and remain slightly elevated - Continue to monitor LFTs 5. Depression - Evluated by Dr. Houston, but was not interested to talk to her - As per Dr. Houston, patient would benefit from OP follow up and possible initiation of antidepressant therapy PT/OT on board, will continue to work with patient 20 min spent evaluating and providing care for this patient Quality VTE Deep Vein Thrombosis/Pulmonary Embolism Present on Admission: No
[2017-12-19] MEDS: INSULIN ASPART 100 UNIT/ML INSULN PEN SUBCUT ×2 (13:06→17:34)
--- NOTE | 2017-12-19 13:40 | PT.IPTN ---
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 (12/13/17) Chronic obstructive pulmonary disease with (acute) exacerbation (12/13/17) Chronic obstructive pulmonary disease, unspecified (12/13/17) Weakness (12/13/17) Physical Therapy Treatment Note M2 PT-IP Current Condition Start: 12/15/17 16:26 Freq: NEEDED Status: Active Protocol: Document 12/19/17 13:40 RCC (Rec: 12/19/17 16:17 RCC [id number]) Physical Therapy Current Condition Current Condition Evaluation Date 11/05/17 Treatment Diagnosis SOB, weak, RLE cellulitis, impaired activity tolerance Precautions Other Precautions falls, wound on R lower leg M3 PT-IP Subjective Start: 12/15/17 16:26 Freq: NEEDED Status: Active Protocol: Document 12/19/17 13:40 RCC (Rec: 12/19/17 16:17 RCC [email or web address]) Subjective Physical Therapy Visit Type Type Treatment Note Visit Start Time 13:20 Visit Stop Time 13:40 Total Visit Minutes 20 Number of LANDSCAPE MANAGER Visits 0 Physical Therapy Visit Comments Patient Comments pt agreeable to get OOB. M4 PT-IP Mobility and Gait Start: 12/15/17 16:26 Freq: NEEDED Status: Active Protocol: Document 12/19/17 13:40 RCC (Rec: 12/19/17 16:17 RCC [id number]) PT-Bed Mobility Assessment Supine to Sit Supine to Sit Moderate Assistance 1 Person Assistance Sit to Supine Sit to Supine Moderate Assistance 1 Person Assistance Scooting Scooting to Edge of Bed Minimal Assistance PT-Transfer Assessment Sit to and From Stand Sit to and from Stand Minimal Assistance 1 Person Assistance Equipment Transfer Assistive Device Gait Belt Front Wheeled Walker Transfers Transfer Destination Bed Transfer Technique Stand Step Pivot Transfer Ability Level of Assist Minimal Assistance 1 Person Assistance Use of Upper Extremities Gait Assessment Gait Gait Assistance Required: Minimum Assistance Distance (Feet) 5 Assistive Devices Assistive Device Gait Belt Front Wheeled Walker Gait Deviations General Gait Pattern Decreased Stride Length Decreased Feet Clearance Flexed Trunk Wide Based Gait Factors Limiting Gait Function Factors Limiting Gait Function Decreased Activity Tolerance Decreased Strength Poor Balance Poor Safety Awareness Comments Gait Comments pt with severely flexed trunk, using hands on front of FWW needing cuing to get hands in appropriate position. Fatigued after short gait. M5 PT-IP Objective Assessments Start: 12/15/17 16:26 Freq: NEEDED Status: Active Protocol: Document 12/18/17 15:40 RCC (Rec: 12/18/17 16:46 [facility] [id number]) Orientation Orientation/Cognition Level of Alertness Alert Gross Range of Motion Lower Extremity ROM Impairments full extension, flexion to at least 90 deg bilaterally. Strength Lower Extremity Strength Hip flexion 3/5 B Knee flexion and extension 3+/5 B Ankle not able to test M6 PT-IP Treatment Start: 12/15/17 16:26 Freq: NEEDED Status: Active Protocol: Document 12/18/17 15:40 RCC (Rec: 12/18/17 16:46 [facility] [id number]) Physical Therapy Treatment Education Education Provided Safety M7 PT-IP Assessment and Plan Start: 12/15/17 16:26 Freq: NEEDED Status: Active Protocol: Document 12/19/17 13:40 RCC (Rec: 12/19/17 16:17 [facility] [id number]) PT Summary Assessment and Plan Summary Assessment Summary Pt able to advance to forward gait to 5 ft forward and backward using FWW. She requires cuing for appropriate hand position and posture, and fatigues rapidly. She is not safe to return home at this point, as the burden of care is too high for her spouse to manage safely and appropriately. Goals Bed Mobility Goal Minimal Assistance Transfer Goal Minimal Assistance Front Wheeled Walker Gait Goal Minimal Assistance Front Wheel Walker Gait Distance 50 ft Other Goals up/down 4 steps L ascending rail and Min A Days to Meet Goals 3 Frequency of Treatment Frequency Of Treatment Once a Day Treatment Plan Other Recommendations and Next Treatment prog. gait, transfers, bed Focus mobility Recommendations To Nursing Amount of Assist Needed 1 Person Assist Discharge Recommendations PT Discharge Recommendations SNF Rehab
--- NOTE | 2017-12-19 14:08 | CM.DPC ---
Addendum entered by Gisselle Romero LPN 12/19/17 16:51: [place] application for long-term care/aged,blind,disabled coverage and HCS Intake and Referral Form are faxed now to : [place] [facility]: [phone] and [phone] and with fax confirmation receipt reviewed for both #s. Copies of same provided to pt and to her as per our prior discussion. Original Note: DCP: continued: met as planned yesterday afternoon with pt and Dr. Salinas. Later in the afternoon had a lengthy phone conversation with pt's spouse Wong ([facility]) He agreed to meet today at 1100 for discussion with the physician and to begin the Medicaid application process. Dr. Salinas strongly recommended to pt that she consider a snf setting for rehab/recovery and then planning for future care. Pt agreed and then Dr. Salinas and PT Bertin worked with pt to complete the initial PT eval. Checked in this morning with pt. She today is cheerful, agreeable to snf setting: identifies choice: [facility] or [facility]. Met with pt and Wong at 1100 and spend next 60 minutes going over the medicaid process and assisting them with the Medicaid application as pt's Managed MCR plan will only provide a limited number of days before a copy is needed and pt's funds are very limited. Pt later did work again with PT Bertin and made more progress. OT order is in place for tomorrow. [facility] she will review the referral, proceed with the [facility] auth process as indicated. As per what was discovered during last admission, this plan is managed by [employer] [facility]. A one time contract will need to be approved. Info and including medicaid zacakry info is sent on to Cheryl and she will followup with CM DCP team tomorrow. Total of 4 hours spend over the last 2 days in facilitation of a safe and appropriate d/c plan including conferences with the various care team members involved in pt's d/c planning process. P: [id number] pending acceptance by the facility and [facility] auth agreement.
--- NOTE | 2017-12-19 14:39 | PC.NURSE ---
pts bs 161 around lunch time. Pt did not eat breakfast or lunch. she had a snack that her brought her. This rn did not give pt her routine 12u of fast acting insulin. 1u of Novolog fast acting given. She was changed and has been repositioned in bed. Pt perfers to always lay on her r.side.
[2017-12-19] MEDS: INSULIN ASPART 100 UNIT/ML INSULN PEN 12 UNIT SUBCUT (17:34)
[2017-12-19] MEDS: INSULIN GLARGINE 100 UNIT/ML 3ML PEN 22 UNIT SUBCUT (21:05)
[2017-12-20] VITALS (7 sets, daily range): BP systolic 151–166; BP diastolic 72–99; PULSE 76–101; RESP 16–22; TEMP 36.4–36.8; O2SAT 95–98
[2017-12-20 09:02] LABS: Hematocrit 35.5 % (36-46); Mean Corpuscular HGB Conc 33.8 % (30-36); Mean Corpuscular Hemoglobin 32.4 PG (26-34); Mean Corpuscular Volume 95.8 fL (80-100); Platelet Count 154 X10^3/uL (150-400); Red Blood Cell Count 3.71 X10^6/uL (4.0-5.2); Red Cell Distribution Width 15.6 % (11.6-14.8); White Blood Cell Count 14.9 X10^3/uL (4.5-11.0)
[2017-12-20 09:08] LABS: Add Manual Diff / Slide Review YES
[2017-12-20] MEDS: INSULIN ASPART 100 UNIT/ML INSULN PEN SUBCUT ×2 (09:20→20:56)
[2017-12-20] MEDS: DOXYCYCLINE HYCLATE 100 MG TABLET PO ×2 (09:21→20:44)
[2017-12-20] MEDS: INSULIN ASPART 100 UNIT/ML INSULN PEN 12 UNIT SUBCUT ×2 (09:21→13:32)
[2017-12-20] MEDS: predniSONE 5 MG TABLET 15 MG PO ×2 (09:21→20:58)
[2017-12-20] MEDS: LISINOPRIL 5 MG TABLET PO (09:21)
[2017-12-20 09:26] LABS: Neutrophils Absolute Manual 11920 /uL (3000-5900); Total Cells Counted 100
[2017-12-20 09:27] LABS: Polychromasia 1+
[2017-12-20 09:32] LABS: BUN Creatinine Ratio 47.5 (6-22); Blood Urea Nitrogen 19 mg/dL (7-17); Calcium 9.4 mg/dL (8.4-10.2); Carbon Dioxide 29 mmol/L (22-32); Chloride 101 mmol/L (98-107); Estimated Glomerular Filt Rate > 60.0 mL/min (>60); Glucose 218 mg/dL (80-110); HEMOLYSIS < 15 (0-50); Sodium 139 mmol/L (137-145)
[2017-12-20] MEDS: DOCUSATE 100 MG CAPSULE PO ×2 (10:50→20:44)
[2017-12-20] MEDS: ACETAMINOPHEN 325 MG TABLET 650 MG PO ×2 (10:50→20:52)
--- NOTE | 2017-12-20 11:17 | CM.DPC ---
Referral faxed to [facility] per Lisha
--- NOTE | 2017-12-20 11:19 | CM.DPC ---
DCP Cont: Called Cheryl at admissions at [facility] in [facility]. Intitially, she stated that she would continue to review the case. She called back and stated that she could not accept patient. Stated this was secondary to her leaving without medical advise at [facility]. Called [facility], and stated that their beds were full. Then, contacted Amelia at [facility]. She stated to fax clinical notes to her, and she would come out here to assess. Spoke to Miya at [facility] as well. Stated that they wanted to know which facility she was going to. Informed her that at this time, unclear. Stated that as soon as she goes to facility, they will follow up there. P: Continue to follow up with [facility] for acceptance. Clinical notes have been faxed. Felicia Flores RN/Hooker Operator
--- NOTE | 2017-12-20 11:29 | OT.IP.EVAL ---
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 (12/13/17) Chronic obstructive pulmonary disease with (acute) exacerbation (12/13/17) Chronic obstructive pulmonary disease, unspecified (12/13/17) Weakness (12/13/17) Past Medical History (Last Reviewed 12/14/17 @ 17:48 by Primitivo Miller MD) Acute and chronic respiratory failure (Resolved) Generalized weakness (Chronic) Pneumonia (Resolved) COPD (chronic obstructive pulmonary disease) (Chronic) Chronic steroid use (Chronic) Diabetes type 2, uncontrolled (Chronic) Fatty liver disease, nonalcoholic (Chronic) Surgical History (Last Reviewed 12/14/17 @ 17:48 by Primitivo Miller MD) No pertinent past surgical history (Chronic) Occupational Therapy Inpatient Evaluation/Re-Eval M1 PT/OT-IP Prior Functional Status Start: 12/15/17 16:26 Freq: NEEDED Status: Active Protocol: Document 12/18/17 15:40 RCC (Rec: 12/18/17 16:46 [facility] [id number]) Medical Review Prior Functional Status Mobility and Gait modified indep. indoor/ household gait only, no AD because no room in trailer for one. Assistance with all mobility per pt. Activities of Daily Living and IADL's assist with ADLs Social History Household Members spouse Living Arrangements RV Number of Floors (Floors) One Floor Number of Stairs To Enter/Railing? 4 SE rail on L ascending, 3 steps inside without a railing into/from living room area. Home Environment Walk in Shower Home Equipment Four Wheel Walker M1 PT/OT-IP Prior Functional Status Start: 12/20/17 10:58 Freq: NEEDED Status: Active Protocol: Document 12/20/17 10:59 [facility] (Rec: 12/20/17 11:28 [facility] [id number]) Medical Review Prior Functional Status Medical History Reviewed Yes Mobility and Gait modified indep. indoor/ household gait only, no AD because no room in trailer for one. Assistance with all mobility per pt. Activities of Daily Living and IADL's assist with ADLs Social History Household Members spouse Living Arrangements RV Number of Floors (Floors) One Floor Number of Stairs To Enter/Railing? 4 SE rail on L ascending, 3 steps inside without a railing into/from living room area. Home Environment Walk in Shower Home Equipment Four Wheel Walker M2 OT-IP Current Condition Start: 12/20/17 10:58 Freq: Status: Active Protocol: Document 12/20/17 10:59 [facility] (Rec: 12/20/17 11:28 [facility] [id number]) Occupational Therapy Current Condition Current Condition Evaluation Date 12/20/17 Treatment Diagnosis SOB,weakness Diagnosis Onset Date 12/13/17 Post Operative Precautions Other Precautions falls, wound on R lower leg M3 OT- IP Subjective and Pain Start: 12/20/17 10:58 Freq: Status: Active Protocol: Document 12/20/17 10:59 [facility] (Rec: 12/20/17 11:28 [facility] [id number]) OT- Subjective Occupational Therapy Visit Type Type Initial Evaluation Visit Start Time 10:15 Visit Stop Time 10:50 Total Visit Minutes 35 Occupational Therapy Visit Comments Patient Comments Pt needingn encouragement but agreeable to get up. OT Pain Assessment Pain When Pain Assessed At Rest Pain Present Pain Present Pain Reported Location Perineal Intensity 10 Scale Used Numeric (1 - 10) Description Burning Pain Behaviors Holding Area Wincing Management Techniques Timing of Activity with Medications Rectum Intensity 10 Scale Used Numeric (1 - 10) Description Burning Management Techniques Timing of Activity with Medications M4 OT- IP ADL's Start: 12/20/17 10:58 Freq: Status: Active Protocol: Document 12/20/17 10:59 [facility] (Rec: 12/20/17 11:28 [facility] [id number]) OT ADL-Grooming General Evaluation Grooming Ability Moderate Assistance Areas Needing Assistance Retrieving/Set-up of Grooming Items Combing/Brushing Hair Comments OT Grooming Comments Pt needing assist for set-up and assist to brush back of her head due to decreased AROm with her arms. OT ADL-Dressing Comments OT Dressing Comments Due to limited ROM in BUE , pt needing extensive assist for all dressing needs. Per pt states assist at home for most dressing needs. OT ADL-Toileting General Evaluation Toileting Ability Maximum Assistance Areas Needing Assistance Manage Clothing Perform Perineal Hygiene Devices Toileting Assistive Devices Bedpan Comments OT Toileting Comments Pt dependent with use of bed penny at this time and when asked if wanting to use BSC, pt refused due to feeling too weak. OT ADL-Bathing Comments OT Bathing Comments Pt states at home did get a shower stool and had a HHSP and had to assist to help get into the shower, wash , and dry her. M5 OT- IP IADL's Start: 12/20/17 10:58 Freq: Status: Active Protocol: Document 12/20/17 10:59 [facility] (Rec: 12/20/17 11:28 [facility] [id number]) OT-Instrumental Activities of Daily Living Deficits IADL Deficits Identified Deficits Home Safety Awareness Home Safety Comments assist for all IADL needs. M6 OT- IP Functional Cognition Start: 12/20/17 10:58 Freq: Status: Active Protocol: Document 12/20/17 10:59 [facility] (Rec: 12/20/17 11:28 [facility] [id number]) Cognitive Factors Limiting Selfcare Function Cognitive Ability Level of Alertness Alert Patient Orientation Name Place Situation Attention Span Ability Capable of Focused Attention Capable of Sustained Attention Ability to Follow Commands Able to Follow One Step Commands Memory Description Short Term Impaired Safety Awareness Underestimates Need for Assistance Problem Solving Ability Needs Assist to Identify Solutions Executive Function Ability Unable to Filter Distractions Unable to Make Plans Unable to Remember Details Cognitive Comments Cognitive Assessment Comments Pt easily distracted, needing encouragement to participate in therapy, and able to follow simple one step commands. Pt needs reminders to state her needs. OT- Vision and Hearing OT- Hearing Assessment OT- Hearing Assessment WFL M7 OT- IP Mobility and Balance Start: 12/20/17 10:58 Freq: Status: Active Protocol: Document 12/20/17 10:59 [facility] (Rec: 12/20/17 11:28 [facility] [id number]) OT- Bed Mobility Assessment Rolling Type of Rolling Roll to Right Level of Assistance Standby Assistance Minimal Assistance Supine to Sit Supine to Sit Assist Moderate Assistance Sit to Supine Sit to Supine Assist Minimal Assistance OT-Transfer Assessment Comments Mobility Comments Pt needing assist to help get trunk over her hip to get up to sitting. Pt complaining of dizziness and not able to stand at this time after two attempts. O2 on RA 99% BP 155/ 87. Pt tends to want to lean onto FWW to pull to stand. Pt also needing to use the bed penny . OT- Balance Assessment Sitting Balance and Reactions Static Sitting Balance Ability Good Dynamic Sitting Balance Ability Fair M8 OT- IP Objective Assessments Start: 12/20/17 10:58 Freq: Status: Active Protocol: Document 12/20/17 10:59 [facility] (Rec: 12/20/17 11:28 [facility] [id number]) OT Gross Range of Motion Upper Extremity Range of Motion ROM Impairments Pt WFL from elbow to distal. Pt not able to lift arms against gravity as compensates via shoulder elevation. Arthritic changes in OT Strength hands. Comments Strength Comments BUE strength 3-/5 to 3+/5 from proximal to distal. OT-Muscle Tone Assessment Muscle Tone WNL Yes M9 OT- IP Assessment and Plan Start: 12/20/17 10:58 Freq: Status: Active Protocol: Document 12/20/17 10:59 [facility] (Rec: 12/20/17 11:28 [facility] [id number]) OT Summary Assessment and Plan Potential Rehabilitation Potential Fair Analytic Complexity at Evaluation Low Summary OT Impairments Pain Range of Motion Strength Balance Functional Cognition Functional Mobility Grooming Dressing Toileting Bathing Toilet Transfers Shower Transfers Progress Towards Goals Slow Progress due to Pain Slow Progress due to Medical Issues Slow Progress due to Activity Tolerance Slow Progress due to Cognition Assessment Summary Pt main barriers are steps, decreased activity tolerance, endurance, strength, and needing extensive assist for all ADl and functional mobility needs. Pt needing more assist now versus baseline, prior pt able to transfer, and take a few steps to the bathroom/shower with assist. Goals Grooming Goal Standby Assistance Toileting Goal Moderate Assistance Bathing Goal Moderate Assistance Toilet Transfer Goal Minimal Assistance Shower Transfer Goal Moderate Assistance Patient/Caregiver Education Goal Caregiver Independent Assisting Patient Days to Meet Goals 7 Frequency of Treatment Frequency Of Treatment Once a Day Treatment Plan OT Treatment Plan ADL Training Functional Cognition Training Functional Mobility Patient/Family Education Discharge Planning Other Treatment Recommendations and Next Transfer to [facility], sitting on Treatment Focus edge of bed for grooming. Discharge Recommendations OT Discharge Recommendations SNF Rehab Other Discharge Recommendations Pending improvement, 21/09 assist at home and if able to do stairs.
--- NOTE | 2017-12-20 11:51 | PM.PN.1 ---
Subjective Date Patient Seen: 12/20/17 Time Patient Seen: 11:51 Interval history: FOLLOW UP ON WEAKNESS, RLE CELLULITIS Patient seen at bedside. She is doing ok. Working with PT. pending placement. No overnight events. Still mild pain in RLE. Exam Vital Signs (past 8 hours): - 12/20/17 07:41 12/20/17 07:45 Temperature 98.1 F Pulse Rate 101 H Respiratory Rate 22 Blood Pressure 151/99 H Pulse Oximetry 97 97 Oxygen Delivery Method Room Air Oxygen Flow Rate 0 Narrative Exam Narrative: Gen: NAD. AAOx3 HEENT: PERRLA BL, EOMI BL Neck: Supple, no LAD/JVD Resp: Breath sounds heard BL with some coarse sounds in the background. No wheezing/rhales appreciated CV: RRR, no murumurs GI: +BS, soft. Non tender to palpation MSK: RLE swelling/redness/tenderness in the mid-calf region, medial side. Improving. 1cm ulcer with superficial draining on the upper aspect, stable Skin: BL UE bruising. LUE PICC line Psych: appropriate mood and behavior Objective Labs Result Diagrams: 12/20/17 08:45 12/20/17 08:45 Labs: Laboratory Results - last 24 hr 12/20/17 12/20/17 08:45 08:45 WBC 14.9 H RBC 3.71 L Hgb 12.0 Hct 35.5 L MCV 95.8 MCH 32.4 MCHC 33.8 RDW 15.6 H Plt Count 154 Neut % (Auto) Not Reportable Lymph % (Auto) Not Reportable [place] % (Auto) Not Reportable Eos % (Auto) Not Reportable Baso % (Auto) Not Reportable Total Counted 100 Seg Neutrophils % 73.0 H Band Neutrophils % 7.0 Lymphocytes % (Manual) 9.0 L Atypical Lymphs % 1.0 H Monocytes % (Manual) 4.0 Metamyelocytes % 3.0 H Myelocytes % 3.0 H Neutrophils # (Manual) 49769 H RBC Morphology See below Polychromasia 1+ H Sodium 139 Potassium 4.0 Chloride 101 Carbon Dioxide 29 BUN 19 H Creatinine 0.40 L Estimated GFR > 60.0 BUN/Creatinine Ratio 47.5 H Glucose 218 H Calcium 9.4 Assessment & Plan Plan: Assessment/Plan Narrative: 1. RLE Cellulitis - Improving in appearance, but continues to have drainable ulcer - Leukocytosis is labile, although patient is on chronic prednisone use - Wound cultures grew MRSA - Continue Doxycycline 100mg BID x 4 more days (sensitive to Doxycycline) - Will consult wound care for treatment of chronic drainage - Will get procalcitonin to make sure no acute infectious process is whats causing leukocytosis 2. DM, Type II - BG labile - Continue Glargine to 22U Bedtime and Aspart 12U TIDAC and continue SSI - Frequent accuchecks, hypoglycemia protocol 3. COPD - Currently not in exacerbation as patient is saturating well on RA and no wheezing appreciated - Patient grew Serratia marcenes and MRSA in her sputum...Currently on Vanc and Ceftriaxone for Cellulitis - Continue Albuterol PRN and low dose home steroids (prednisone 15mg BID) 4. Abdominal pain - Resolving, Likely due to fatty liver - LFTs elevated on admission and remain slightly elevated - Continue to monitor LFTs 5. Depression - Evluated by Dr. Houston, but was not interested to talk to her - As per Dr. Houston, patient would benefit from OP follow up and possible initiation of antidepressant therapy PT/OT on board, will continue to work with patient 20 min spent evaluating and providing care for this patient Quality VTE Deep Vein Thrombosis/Pulmonary Embolism Present on Admission: No
[2017-12-20 12:37] LABS: Procalcitonin 0.27 ng/mL (<0.5)
--- NOTE | 2017-12-20 15:18 | CM.DPC ---
DCP Cont: Called Amelia at [facility], to follow up on clinicals that were sent to her. She stated that she would come here tomorrow to evaluate patient. She stated that she would call this case checker before coming, with a time. P: DCP to continue to assess and follow closely. Will meet with Amelia regarding possibility of admission. Felicia Flores RN/Metal Flooring Installer
--- NOTE | 2017-12-20 15:49 | PT.IPTN ---
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 (12/13/17) Chronic obstructive pulmonary disease with (acute) exacerbation (12/13/17) Chronic obstructive pulmonary disease, unspecified (12/13/17) Weakness (12/13/17) Physical Therapy Treatment Note M2 PT-IP Current Condition Start: 12/15/17 16:26 Freq: NEEDED Status: Active Protocol: Document 12/19/17 13:40 RCC (Rec: 12/19/17 16:17 RCC [id number]) Physical Therapy Current Condition Current Condition Evaluation Date 11/05/17 Treatment Diagnosis SOB, weak, RLE cellulitis, impaired activity tolerance Precautions Other Precautions falls, wound on R lower leg M3 PT-IP Subjective Start: 12/15/17 16:26 Freq: NEEDED Status: Active Protocol: Document 12/20/17 14:50 (Rec: 12/20/17 15:49 [id number]) Subjective Physical Therapy Visit Type Type Patient Refusal Notes Pt sleeping when entered room. She requests that nurse come give her pain meds because my butt hurts. Educated pt that getting up and moving can be releiving for sore joints and releive pressure on her body as well as the need to move our bodies to recover. She says maybe later. Educated pt that we can just do a little and go slow to see how she is doing, and just a little can help alot. She insists maybe later. Informed RN that pt is refusing and requests pain medication. M4 PT-IP Mobility and Gait Start: 12/15/17 16:26 Freq: NEEDED Status: Active Protocol: Document 12/19/17 13:40 RCC (Rec: 12/19/17 16:17 RCC [id number]) PT-Bed Mobility Assessment Supine to Sit Supine to Sit Moderate Assistance 1 Person Assistance Sit to Supine Sit to Supine Moderate Assistance 1 Person Assistance Scooting Scooting to Edge of Bed Minimal Assistance PT-Transfer Assessment Sit to and From Stand Sit to and from Stand Minimal Assistance 1 Person Assistance Equipment Transfer Assistive Device Gait Belt Front Wheeled Walker Transfers Transfer Destination Bed Transfer Technique Stand Step Pivot Transfer Ability Level of Assist Minimal Assistance 1 Person Assistance Use of Upper Extremities Gait Assessment Gait Gait Assistance Required: Minimum Assistance Distance (Feet) 5 Assistive Devices Assistive Device Gait Belt Front Wheeled Walker Gait Deviations General Gait Pattern Decreased Stride Length Decreased Feet Clearance Flexed Trunk Wide Based Gait Factors Limiting Gait Function Factors Limiting Gait Function Decreased Activity Tolerance Decreased Strength Poor Balance Poor Safety Awareness Comments Gait Comments pt with severely flexed trunk, using hands on front of FWW needing cuing to get hands in appropriate position. Fatigued after short gait. M5 PT-IP Objective Assessments Start: 12/15/17 16:26 Freq: NEEDED Status: Active Protocol: Document 12/18/17 15:40 RCC (Rec: 12/18/17 16:46 [facility] [id number]) Orientation Orientation/Cognition Level of Alertness Alert Gross Range of Motion Lower Extremity ROM Impairments full extension, flexion to at least 90 deg bilaterally. Strength Lower Extremity Strength Hip flexion 3/5 B Knee flexion and extension 3+/5 B Ankle not able to test M6 PT-IP Treatment Start: 12/15/17 16:26 Freq: NEEDED Status: Active Protocol: Document 12/18/17 15:40 RCC (Rec: 12/18/17 16:46 [facility] [id number]) Physical Therapy Treatment Education Education Provided Safety M7 PT-IP Assessment and Plan Start: 12/15/17 16:26 Freq: NEEDED Status: Active Protocol: Document 12/19/17 13:40 RCC (Rec: 12/19/17 16:17 RCC [email or web address]) PT Summary Assessment and Plan Summary Assessment Summary Pt able to advance to forward gait to 5 ft forward and backward using FWW. She requires cuing for appropriate hand position and posture, and fatigues rapidly. She is not safe to return home at this point, as the burden of care is too high for her spouse to manage safely and appropriately. Goals Bed Mobility Goal Minimal Assistance Transfer Goal Minimal Assistance Front Wheeled Walker Gait Goal Minimal Assistance Front Wheel Walker Gait Distance 50 ft Other Goals up/down 4 steps L ascending rail and Min A Days to Meet Goals 3 Frequency of Treatment Frequency Of Treatment Once a Day Treatment Plan Other Recommendations and Next Treatment prog. gait, transfers, bed Focus mobility Recommendations To Nursing Amount of Assist Needed 1 Person Assist Discharge Recommendations PT Discharge Recommendations SNF Rehab
[2017-12-20] MEDS: INSULIN GLARGINE 100 UNIT/ML 3ML PEN 22 UNIT SUBCUT (20:52)
--- NOTE | 2017-12-20 22:57 | PC.NURSE ---
Pt had relatively uneventful evening. Dozing most of shift. Med w/ tylenol at HS for generalized discomfort. AC CBG = 189; HS CBG= 217. Tele shows NSR per ICU staff. Call light w/in reach, bed alarm on for pt safety. Continue w/plan of care.
[2017-12-21] VITALS (11 sets, daily range): BP systolic 131–173; BP diastolic 78–92; PULSE 76–105; RESP 16–20; TEMP 36.5–37.1; O2SAT 94–99
--- NOTE | 2017-12-21 01:52 | PC.NURSE ---
Pt assisted to BCS. Med. w/tylenol at HS w/good relief. MADHAV PICC intact/patent. Tele shows a-fib per ICU staff. Call light w/in reach, bed alarm on for pt safety.
[2017-12-21] MEDS: ACETAMINOPHEN 325 MG TABLET 650 MG PO ×2 (03:33→17:36)
[2017-12-21 06:56] LABS: Hematocrit 34.5 % (36-46); Hemoglobin 11.8 g/dL (12.0-16.0); Mean Corpuscular HGB Conc 34.1 % (30-36); Mean Corpuscular Hemoglobin 32.5 PG (26-34); Mean Corpuscular Volume 95.2 fL (80-100); Platelet Count 149 X10^3/uL (150-400); Red Blood Cell Count 3.63 X10^6/uL (4.0-5.2); Red Cell Distribution Width 15.7 % (11.6-14.8); White Blood Cell Count 15.7 X10^3/uL (4.5-11.0)
[2017-12-21 07:01] LABS: Blood Urea Nitrogen 20 mg/dL (7-17); Calcium 9.1 mg/dL (8.4-10.2); Carbon Dioxide 30 mmol/L (22-32); Chloride 102 mmol/L (98-107); Estimated Glomerular Filt Rate > 60.0 mL/min (>60); Glucose 145 mg/dL (80-110); HEMOLYSIS < 15 (0-50); Potassium 4.1 mmol/L (3.4-5.1); Sodium 139 mmol/L (137-145)
[2017-12-21 07:03] LABS: Add Manual Diff / Slide Review YES
[2017-12-21 07:48] LABS: Neutrophils Absolute Manual 12717 /uL (3000-5900); Total Cells Counted 100
[2017-12-21 07:49] LABS: Anisocytosis 1+
[2017-12-21 07:50] LABS: Poikilocytosis 1+
[2017-12-21] MEDS: DOXYCYCLINE HYCLATE 100 MG TABLET PO ×2 (09:41→21:16)
[2017-12-21] MEDS: DOCUSATE 100 MG CAPSULE PO ×2 (09:41→21:16)
[2017-12-21] MEDS: LISINOPRIL 5 MG TABLET PO (09:42)
[2017-12-21] MEDS: predniSONE 5 MG TABLET 15 MG PO (09:42)
--- NOTE | 2017-12-21 11:21 | PT.IPTN ---
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 (12/13/17) Chronic obstructive pulmonary disease with (acute) exacerbation (12/13/17) Chronic obstructive pulmonary disease, unspecified (12/13/17) Weakness (12/13/17) Physical Therapy Treatment Note M2 PT-IP Current Condition Start: 12/15/17 16:26 Freq: NEEDED Status: Active Protocol: Document 12/21/17 10:40 NFW (Rec: 12/21/17 11:21 NFW [id number]) Physical Therapy Current Condition Current Condition Evaluation Date 11/05/17 Treatment Diagnosis SOB, weak, RLE cellulitis, impaired activity tolerance Precautions Other Precautions falls, wound on R lower leg M3 PT-IP Subjective Start: 12/15/17 16:26 Freq: NEEDED Status: Active Protocol: Document 12/21/17 10:40 NFW (Rec: 12/21/17 11:21 NFW [id number]) Subjective Physical Therapy Visit Type Type Treatment Note Visit Start Time 10:40 Visit Stop Time 11:10 Total Visit Minutes 30 Physical Therapy Visit Comments Patient Comments Complaints of dizziness, feels like it is from her medication. Patient Goals Hoping to go to a SNF. M4 PT-IP Mobility and Gait Start: 12/15/17 16:26 Freq: NEEDED Status: Active Protocol: Document 12/21/17 10:40 NFW (Rec: 12/21/17 11:21 NFW [id number]) PT-Bed Mobility Assessment Rolling Type of Rolling Log Rolling Supine to Sit Supine to Sit Moderate Assistance 1 Person Assistance Sit to Supine Sit to Supine Maximum Assistance 2 Person Assistance Scooting Scooting to Edge of Bed Moderate Assistance Scooting Up and Down in Bed Maximum Assistance PT-Transfer Assessment Equipment Transfer Assistive Device Gait Belt Front Wheeled Walker PT-Balance Assessment Sitting Balance and Reactions Static Sitting Balance Ability Poor Dynamic Sitting Balance Ability Poor M5 PT-IP Objective Assessments Start: 12/15/17 16:26 Freq: NEEDED Status: Active Protocol: Document 12/18/17 15:40 RCC (Rec: 12/18/17 16:46 RCC [id number]) Orientation Orientation/Cognition Level of Alertness Alert Gross Range of Motion Lower Extremity ROM Impairments full extension, flexion to at least 90 deg bilaterally. Strength Lower Extremity Strength Hip flexion 3/5 B Knee flexion and extension 3+/5 B Ankle not able to test M6 PT-IP Treatment Start: 12/15/17 16:26 Freq: NEEDED Status: Active Protocol: Document 12/21/17 10:40 NFW (Rec: 12/21/17 11:21 NFW [id number]) Physical Therapy Treatment Exercises Exercises Ankle Pumps Seated Knee Flexion/Extension Other Treatments Other Treatment Performed Sitting balance activites x 12 minutes. Relies heavily on BUEs to maintain balance. Deep breathing exercises while seated. Multiple attempts to stand, would initiate then refuse. Quite fatigued at end of treatment required assist of two to return to supine position. M7 PT-IP Assessment and Plan Start: 12/15/17 16:26 Freq: NEEDED Status: Active Protocol: Document 12/21/17 10:40 NFW (Rec: 12/21/17 11:21 NFW [id number]) PT Summary Assessment and Plan Frequency of Treatment Frequency Of Treatment Once a Day Discharge Recommendations PT Discharge Recommendations SNF Rehab
--- NOTE | 2017-12-21 11:41 | PM.PN.1 ---
Subjective Date Patient Seen: 12/21/17 Time Patient Seen: 11:41 Interval history: FOLLOW UP ON WEAKNESS, RLE CELLULITIS Patient seen at bedside. No acute overnight events. She is getting up more with PT. She has been refused at multiple nursing homes. Will be re-evaluated by Ollie again today. RLE cellulitis resolved, but small ulcer continued to drain mucopurulent discharge. Was addressed by wound care yesterday and ulcer cleaned and bandaged Exam Vital Signs (past 8 hours): - 12/21/17 05:58 12/21/17 08:00 12/21/17 10:00 Temperature 97.9 F 98.7 F Pulse Rate 76 Respiratory Rate 19 18 Blood Pressure 154/82 H 173/83 H Pulse Oximetry 96 99 99 Oxygen Delivery Method Room Air Oxygen Flow Rate 0 Narrative Exam Narrative: Gen: NAD. AAOx3 HEENT: PERRLA BL, EOMI BL Neck: Supple, no LAD/JVD Resp: Breath sounds heard BL with some coarse sounds in the background. No wheezing/rhales appreciated CV: RRR, no murumurs GI: +BS, soft. Non tender to palpation MSK: RLE swelling/redness/tenderness in the mid-calf region, medial side. Improving. 1cm ulcer with superficial draining on the upper aspect, stable Skin: BL UE bruising. LUE PICC line Psych: appropriate mood and behavior Objective Labs Result Diagrams: 12/21/17 06:30 12/21/17 06:30 Labs: Laboratory Results - last 24 hr 12/20/17 12/21/17 12/21/17 08:45 06:30 06:30 WBC 15.7 H RBC 3.63 L Hgb 11.8 L Hct 34.5 L MCV 95.2 MCH 32.5 MCHC 34.1 RDW 15.7 H Plt Count 149 L Neut % (Auto) Not Reportable Lymph % (Auto) Not Reportable [place] % (Auto) Not Reportable Eos % (Auto) Not Reportable Baso % (Auto) Not Reportable Total Counted 100 Seg Neutrophils % 81.0 H Lymphocytes % (Manual) 10.0 L Monocytes % (Manual) 9.0 Neutrophils # (Manual) 59301 H RBC Morphology Not Reportable Poikilocytosis 1+ H Anisocytosis 1+ H Sodium 139 Potassium 4.1 Chloride 102 Carbon Dioxide 30 BUN 20 H Creatinine 0.50 L Estimated GFR > 60.0 BUN/Creatinine Ratio 40.0 H Glucose 145 H Calcium 9.1 Procalcitonin 0.27 Assessment & Plan Plan: Assessment/Plan Narrative: 1. RLE Cellulitis - Resolving, but continues to have drainable ulcer that has been addressed by wound care - Leukocytosis is on the rise, but patient is on chronic steroid use - procalcitonin negative- no acute infectious process to explain leukocytosis otherwise - Wound cultures grew MRSA - Continue Doxycycline 100mg BID x 3 more days (sensitive to Doxycycline) 2. DM, Type II - BG labile - Continue Glargine to 22U Bedtime but decrease Aspart to 8U TIDAC and continue SSI - Frequent accuchecks, hypoglycemia protocol 3. COPD - Currently not in exacerbation as patient is saturating well on RA and no wheezing appreciated - Patient grew Serratia marcenes and MRSA in her sputum...Currently on Vanc and Ceftriaxone for Cellulitis - Continue Albuterol PRN but will titrate down steroids to 10mg BID, and then further as tolerated 4. Abdominal pain - Resolving, Likely due to fatty liver - LFTs elevated on admission and remain slightly elevated - Continue to monitor LFTs 5. Depression - Evluated by Dr. Houston, but was not interested to talk to her - As per Dr. Houston, patient would benefit from OP follow up and possible initiation of antidepressant therapy PT/OT on board, will continue to work with patient 20 min spent evaluating and providing care for this patient Pending placement Quality VTE Deep Vein Thrombosis/Pulmonary Embolism Present on Admission: No
[2017-12-21] MEDS: INSULIN ASPART 100 UNIT/ML INSULN PEN 8 UNIT SUBCUT ×2 (12:18→17:17)
[2017-12-21] MEDS: INSULIN ASPART 100 UNIT/ML INSULN PEN SUBCUT ×3 (12:18→21:26)
--- NOTE | 2017-12-21 12:39 | CM.DPC ---
DCP Cont: Amelia and Julito were here to evaluate patient for Ollie. Amelia stated that she is concerned about patient's over all condition, between respiratory and skin issues. Is aware that patient is on isolation. Discussed palliative care, and let her know that this can be an option when she goes to facility. Discussed skilled nursing plan, and let her know that paper work has been sent for [facility]. Amelia stated that she would review her insurance. Is also noted that she will need a private room, due to being in isolation. After [facility], can also look into [facility] for permanent care. P: DCP to continue to follow. Will follow up with Amelia at [facility], for the plan, once cleared with insurance. Felicia Flores RN/[employer]
--- NOTE | 2017-12-21 13:18 | OT.IP.TRT ---
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 (12/13/17) Chronic obstructive pulmonary disease with (acute) exacerbation (12/13/17) Chronic obstructive pulmonary disease, unspecified (12/13/17) Weakness (12/13/17) Occupational Therapy Treatment Note M2 OT-IP Current Condition Start: 12/20/17 10:58 Freq: Status: Active Protocol: Document 12/20/17 10:59 [facility] (Rec: 12/20/17 11:28 [facility] [id number]) Occupational Therapy Current Condition Current Condition Evaluation Date 12/20/17 Treatment Diagnosis SOB,weakness Diagnosis Onset Date 12/13/17 Post Operative Precautions Other Precautions falls, wound on R lower leg M3 OT- IP Subjective and Pain Start: 12/20/17 10:58 Freq: Status: Active Protocol: Document 12/21/17 13:17 [facility] (Rec: 12/21/17 13:18 [facility] [id number]) OT- Subjective Occupational Therapy Visit Type Type Patient Refusal Notes Attempted OT treatment and pt states wanting to continue to sleep and therefore refusing OT treatment today.
[2017-12-21] MEDS: predniSONE 5 MG TABLET 10 MG PO (21:15)
[2017-12-21] MEDS: INSULIN GLARGINE 100 UNIT/ML 3ML PEN 22 UNIT SUBCUT (21:24)
[2017-12-22] VITALS (12 sets, daily range): BP systolic 122–180; BP diastolic 50–93; PULSE 68–103; RESP 15–19; TEMP 36.3–37.1; O2SAT 92–97
[2017-12-22 06:33] LABS: Blood Urea Nitrogen 20 mg/dL (7-17); Carbon Dioxide 32 mmol/L (22-32); Chloride 101 mmol/L (98-107); Estimated Glomerular Filt Rate > 60.0 mL/min (>60); Glucose 122 mg/dL (80-110); HEMOLYSIS < 15 (0-50); Potassium 4.2 mmol/L (3.4-5.1); Sodium 140 mmol/L (137-145)
[2017-12-22 06:42] LABS: Add Manual Diff / Slide Review NO; Basophils Percent Auto 0.7 % (0-2); Eosinophils Percent Auto 0.2 % (2-4); Lymphocytes Percent Auto 11.7 % (25-40); Mean Corpuscular HGB Conc 34.2 % (30-36); Mean Corpuscular Hemoglobin 32.6 PG (26-34); Mean Corpuscular Volume 95.3 fL (80-100); Monocytes Percent Auto 5.5 % (3-14); Neutrophils Absolute Auto 12000 /uL (3000-5900); Neutrophils Percent Auto 81.9 % (50-75); Platelet Count 158 X10^3/uL (150-400); Red Blood Cell Count 3.67 X10^6/uL (4.0-5.2); Red Cell Distribution Width 15.6 % (11.6-14.8); White Blood Cell Count 14.6 X10^3/uL (4.5-11.0)
[2017-12-22] MEDS: DOXYCYCLINE HYCLATE 100 MG TABLET PO ×2 (08:31→21:26)
[2017-12-22] MEDS: DOCUSATE 100 MG CAPSULE PO ×2 (08:31→21:26)
[2017-12-22] MEDS: predniSONE 5 MG TABLET 10 MG PO ×2 (08:32→21:26)
[2017-12-22] MEDS: LISINOPRIL 5 MG TABLET PO (08:32)
--- NOTE | 2017-12-22 09:17 | PT.IPTN ---
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 (12/13/17) Chronic obstructive pulmonary disease with (acute) exacerbation (12/13/17) Chronic obstructive pulmonary disease, unspecified (12/13/17) Weakness (12/13/17) Physical Therapy Treatment Note M2 PT-IP Current Condition Start: 12/15/17 16:26 Freq: NEEDED Status: Active Protocol: Document 12/21/17 10:40 NFW (Rec: 12/21/17 11:21 NFW [id number]) Physical Therapy Current Condition Current Condition Evaluation Date 11/05/17 Treatment Diagnosis SOB, weak, RLE cellulitis, impaired activity tolerance Precautions Other Precautions falls, wound on R lower leg M3 PT-IP Subjective Start: 12/15/17 16:26 Freq: NEEDED Status: Active Protocol: Document 12/22/17 09:17 [facility] (Rec: 12/22/17 09:17 [facility] [id number]) Subjective Physical Therapy Visit Type Type Patient Refusal Notes Pt states she is too dizzy to even sit up in bed. M4 PT-IP Mobility and Gait Start: 12/15/17 16:26 Freq: NEEDED Status: Active Protocol: Document 12/21/17 10:40 NFW (Rec: 12/21/17 11:21 NFW [id number]) PT-Bed Mobility Assessment Rolling Type of Rolling Log Rolling Supine to Sit Supine to Sit Moderate Assistance 1 Person Assistance Sit to Supine Sit to Supine Maximum Assistance 2 Person Assistance Scooting Scooting to Edge of Bed Moderate Assistance Scooting Up and Down in Bed Maximum Assistance PT-Transfer Assessment Equipment Transfer Assistive Device Gait Belt Front Wheeled Walker PT-Balance Assessment Sitting Balance and Reactions Static Sitting Balance Ability Poor Dynamic Sitting Balance Ability Poor M5 PT-IP Objective Assessments Start: 12/15/17 16:26 Freq: NEEDED Status: Active Protocol: Document 12/18/17 15:40 [facility] (Rec: 12/18/17 16:46 RCC [id number]) Orientation Orientation/Cognition Level of Alertness Alert Gross Range of Motion Lower Extremity ROM Impairments full extension, flexion to at least 90 deg bilaterally. Strength Lower Extremity Strength Hip flexion 3/5 B Knee flexion and extension 3+/5 B Ankle not able to test M6 PT-IP Treatment Start: 12/15/17 16:26 Freq: NEEDED Status: Active Protocol: Document 12/21/17 10:40 NFW (Rec: 12/21/17 11:21 NFW [id number]) Physical Therapy Treatment Exercises Exercises Ankle Pumps Seated Knee Flexion/Extension Other Treatments Other Treatment Performed Sitting balance activites x 12 minutes. Relies heavily on BUEs to maintain balance. Deep breathing exercises while seated. Multiple attempts to stand, would initiate then refuse. Quite fatigued at end of treatment required assist of two to return to supine position. M7 PT-IP Assessment and Plan Start: 12/15/17 16:26 Freq: NEEDED Status: Active Protocol: Document 12/21/17 10:40 [facility]W (Rec: 12/21/17 11:21 NFW [id number]) PT Summary Assessment and Plan Frequency of Treatment Frequency Of Treatment Once a Day Discharge Recommendations PT Discharge Recommendations [facility]
--- NOTE | 2017-12-22 11:32 | CM.DPC ---
DCP: continued. Case again received and discussed in Team Rounds. Dr. Licona is now on as hospitalist confirms pt's readiness for d/c whenever appropriate snf setting is found. Spoke with Amelia/[facility]. She and her team have accepted pt and do now have a pvt room that will be available to accommodate the respiratory MRSA/sputum. She continues to work with the insurance company to obtain the needed authorization. See that Miya did speak with Bryan Husain and will followup at the snf setting when this has been finalized. Miya/[facility]: [phone]. VM is given to her now with update on [facility].
--- NOTE | 2017-12-22 12:21 | OT.IP.TRT ---
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 (12/13/17) Chronic obstructive pulmonary disease with (acute) exacerbation (12/13/17) Chronic obstructive pulmonary disease, unspecified (12/13/17) Weakness (12/13/17) Occupational Therapy Treatment Note M2 OT-IP Current Condition Start: 12/20/17 10:58 Freq: Status: Active Protocol: Document 12/20/17 10:59 [facility] (Rec: 12/20/17 11:28 [facility] [id number]) Occupational Therapy Current Condition Current Condition Evaluation Date 12/20/17 Treatment Diagnosis SOB,weakness Diagnosis Onset Date 12/13/17 Post Operative Precautions Other Precautions falls, wound on R lower leg M3 OT- IP Subjective and Pain Start: 12/20/17 10:58 Freq: Status: Active Protocol: Document 12/22/17 11:53 [facility] (Rec: 12/22/17 12:20 [facility] [id number]) OT- Subjective Occupational Therapy Visit Type Type Treatment Note Visit Start Time 10:40 Visit Stop Time 10:50 Total Visit Minutes 10 Occupational Therapy Visit Comments Patient Comments Pt states feels too dizzy to get up at this time, even though having to use the bathroom. OT Pain Assessment Pain When Pain Assessed At Rest Pain Present Pain Present Pain Reported Location Rectum Intensity 10 Scale Used Numeric (1 - 10) Description Burning Pain Behaviors Facial Grimacing Holding Area Management Techniques Timing of Activity with Medications Document 12/22/17 11:53 [facility] (Rec: 12/22/17 12:20 [facility] [id number]) Cognitive Factors Limiting Selfcare Function Cognitive Ability Level of Alertness Alert Confusional State Patient Orientation Name Place Situation Attention Span Ability Capable of Focused Attention Capable of Sustained Attention Ability to Follow Commands Able to Follow One Step Commands Memory Description Short Term Impaired Safety Awareness Underestimates Need for Assistance Problem Solving Ability Unable to Identify Errors Needs Assist to Identify Solutions Executive Function Ability Unable to Organize Plans Unable to Remember Details Cognitive Comments Cognitive Assessment Comments Pt when asked directly not able to states goals or needs. Pt needs lots of encouragement to participate, be proactive with her care, initiate moving and doing ADL' s. M7 OT- IP Mobility and Balance Start: 12/20/17 10:58 Freq: Status: Active Protocol: Document 12/22/17 11:53 [facility] (Rec: 12/22/17 12:20 [facility] [id number]) OT- Bed Mobility Assessment Rolling Type of Rolling Roll to Right Level of Assistance Standby Assistance Head of Bed Elevated Bedrails M8 OT- IP Objective Assessments Start: 12/20/17 10:58 Freq: Status: Active Protocol: Document 12/20/17 10:59 [facility] (Rec: 12/20/17 11:28 [facility] [id number]) OT Gross Range of Motion Upper Extremity Range of Motion ROM Impairments Pt WFL from elbow to distal. Pt not able to lift arms against gravity as compensates via shoulder elevation. OT Strength Comments Strength Comments BUE strength 3-/5 to 3+/5 from proximal to distal. OT-Muscle Tone Assessment Muscle Tone WNL Yes M9 OT- IP Assessment and Plan Start: 12/20/17 10:58 Freq: Status: Active Protocol: Document 12/22/17 11:53 [facility] (Rec: 12/22/17 12:20 [facility] [id number]) OT Summary Assessment and Plan Summary Progress Towards Goals Slow Progress due to Pain Slow Progress due to Medical Issues Slow Progress due to Activity Tolerance Slow Progress due to Cognition Assessment Summary Pt continues to be dizzy and not wanting to participate in therapy, pt BP supine 149/86 and 135/55. Pt feeling medications making her dizzy, nursing aware. Pt barriers continue to be pain, decreased strength and endurance, and needing lots of encouragement to participate in basic ADL's and functional mobility. Pt would benefit from skilled rehab as long as pt motivated and proactive for her well being. Pt educated on the importance of participating in therapy and working on goals to get better. Pt has decrease insight of goals and needs at this time. Goals Days to Meet Goals 5 Frequency of Treatment Frequency Of Treatment Once a Day Treatment Plan OT Treatment Plan ADL Training Functional Cognition Training Patient/Family Education Discharge Planning Other Treatment Recommendations and Next Use of BSC, stand at sink for Treatment Focus grooming. Discharge Recommendations OT Discharge Recommendations SNF Rehab
--- NOTE | 2017-12-22 13:28 | PC.NURSE ---
Pt did not eat well at breakfast, bs 84 and insulins not given. At lunch patient only ate about 25% and bs 119. Insulin not given, as pt did not eat well.
--- NOTE | 2017-12-22 16:46 | PT.IPTN ---
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 (12/13/17) Chronic obstructive pulmonary disease with (acute) exacerbation (12/13/17) Chronic obstructive pulmonary disease, unspecified (12/13/17) Weakness (12/13/17) Physical Therapy Treatment Note M2 PT-IP Current Condition Start: 12/15/17 16:26 Freq: NEEDED Status: Active Protocol: Document 12/21/17 10:40 NFW (Rec: 12/21/17 11:21 NFW [id number]) Physical Therapy Current Condition Current Condition Evaluation Date 11/05/17 Treatment Diagnosis SOB, weak, RLE cellulitis, impaired activity tolerance Precautions Other Precautions falls, wound on R lower leg M3 PT-IP Subjective Start: 12/15/17 16:26 Freq: NEEDED Status: Active Protocol: Document 12/22/17 15:48 LJ (Rec: 12/22/17 16:46 LJ [id number]) Subjective Physical Therapy Visit Type Type Treatment Note Visit Start Time 15:48 Visit Stop Time 16:05 Total Visit Minutes 17 Physical Therapy Visit Comments Patient Comments Pt wishes she could walk into the shower. States she smells bad and wants to clean herself up. M4 PT-IP Mobility and Gait Start: 12/15/17 16:26 Freq: NEEDED Status: Active Protocol: Document 12/22/17 15:48 LJ (Rec: 12/22/17 16:46 LJ [id number]) PT-Bed Mobility Assessment Rolling Type of Rolling Log Rolling Sit to Supine Sit to Supine Minimal Assistance 1 Person Assistance Scooting Scooting to Edge of Bed Moderate Assistance Scooting Up and Down in Bed Moderate Assistance PT-Transfer Assessment Comments Mobility Comments Pt req'd mod assist for bed mobility. Able to move legs off side of bed but req'd assist with supine>sit with head of bed elevated. Pt able to return legs to bed with no assist but required mod assist for scooting to head of bed. Pt able to bridge and push with LEs to reposition. PT-Balance Assessment Sitting Balance and Reactions Static Sitting Balance Ability Fair Dynamic Sitting Balance Ability Fair M5 PT-IP Objective Assessments Start: 12/15/17 16:26 Freq: NEEDED Status: Active Protocol: Document 12/18/17 15:40 RCC (Rec: 12/18/17 16:46 RCC [id number]) Orientation Orientation/Cognition Level of Alertness Alert Gross Range of Motion Lower Extremity ROM Impairments full extension, flexion to at least 90 deg bilaterally. Strength Lower Extremity Strength Hip flexion 3/5 B Knee flexion and extension 3+/5 B Ankle not able to test M6 PT-IP Treatment Start: 12/15/17 16:26 Freq: NEEDED Status: Active Protocol: Document 12/22/17 15:48 (Rec: 12/22/17 16:46 [id number]) Physical Therapy Treatment Exercises Exercises Ankle Pumps Gluteal Sets Heel Slides Seated Knee Flexion/Extension Education Education Provided Safety Other Treatments Other Treatment Performed Sitting balance activities x 8 min with min-mod assist. Pt able to scoot toward head of bed pushing off floor with LLE . Used RUE to balance sitting on side of breath. No complaint of pain or shortness of breath. Log rolling x 3 with SBA. M7 PT-IP Assessment and Plan Start: 12/15/17 16:26 Freq: NEEDED Status: Active Protocol: Document 12/22/17 15:48 (Rec: 12/22/17 16:46 [id number]) PT Summary Assessment and Plan Summary Impairments Strength Balance Bed Mobility Transfers Gait Activity Tolerance Assessment Summary Pt able to provide self pericare and cleaning of UEs and face in bed. Min cues for balancing on side of bed. No complaint of shortness of breath or pain. Pt able to sit for 8 min at edge of bed with use of only RUE. Able to logroll SBA, scoot to HOB Rodney Goals Bed Mobility Goal Minimal Assistance Transfer Goal Minimal Assistance Front Wheeled Walker Gait Goal Minimal Assistance Front Wheel Walker Gait Distance 50 ft Other Goals up/down 4 steps L ascending rail and Min A Days to Meet Goals 3 Frequency of Treatment Frequency Of Treatment Once a Day Treatment Plan Physical Therapy Treatment Plan Bed Mobility Training Transfer Training Gait Training Therapeutic Exercise Balance Retraining Discharge Planning Neuromuscular Re-ed Other Recommendations and Next Treatment prog. gait, transfers, bed Focus mobility Recommendations To Nursing Amount of Assist Needed 1 Person Assist Discharge Recommendations PT Discharge Recommendations SNF Rehab
--- NOTE | 2017-12-22 16:48 | PM.PN.1 ---
Subjective Date Patient Seen: 12/22/17 Interval history: Patient seen and examined. No specific complaints today Resting comfortably Exam Vital Signs (past 8 hours): - 12/22/17 09:55 12/22/17 10:50 12/22/17 13:15 Temperature 97.7 F Pulse Rate 90 94 H Respiratory Rate 18 Blood Pressure 126/58 L Pulse Oximetry 95 95 Oxygen Delivery Method Room Air Oxygen Flow Rate 0 Narrative Exam Narrative: Cushingnoid appearing Lungs: Decreased breath sounds with prolonged expiratory phase CV: RRR nL Sl S2 Abd: soft/ non tender Ext: no edema Objective Labs Result Diagrams: 12/22/17 06:10 12/22/17 06:10 Labs: Laboratory Results - last 24 hr 12/22/17 12/22/17 06:10 06:10 WBC 14.6 H RBC 3.67 L Hgb 12.0 Hct 35.0 L MCV 95.3 MCH 32.6 MCHC 34.2 RDW 15.6 H Plt Count 158 Neut % (Auto) 81.9 H Lymph % (Auto) 11.7 L Gilliam % (Auto) 5.5 Eos % (Auto) 0.2 L Baso % (Auto) 0.7 Neut # (Auto) 44168 H Sodium 140 Potassium 4.2 Chloride 101 Carbon Dioxide 32 BUN 20 H Creatinine 0.40 L Estimated GFR > 60.0 BUN/Creatinine Ratio 50.0 H Glucose 122 H Calcium 9.0 Assessment & Plan (1) COPD (chronic obstructive pulmonary disease): Problem details: As above Qualifiers: COPD type: COPD with acute lower respiratory infection Chronic bronchitis type: Emphysema type: Qualified Code(s): J44.0 - Chronic obstructive pulmonary disease with acute lower respiratory infection Current visit: No Status: Chronic (2) Generalized weakness: Problem details: Continue PT/ OT Current visit: No Status: Chronic (3) Type 2 diabetes mellitus: Problem details: continue current Current visit: Yes Status: Acute (4) Cellulitis: Problem details: improving, continue antibiotics Current visit: Yes Status: Acute (5) Mood disorder with depressive features due to general medical condition: Current visit: Yes Status: Acute (6) Leukocytosis: Problem details: will follow Qualifiers: Leukocytosis type: unspecified Qualified Code(s): D72.829 - Elevated white blood cell count, unspecified Current visit: Yes Status: Acute Plan: Assessment/Plan Narrative: await placement Quality VTE Deep Vein Thrombosis/Pulmonary Embolism Present on Admission: No
--- NOTE | 2017-12-22 16:49 | PT.IPTN ---
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 (12/13/17) Chronic obstructive pulmonary disease with (acute) exacerbation (12/13/17) Chronic obstructive pulmonary disease, unspecified (12/13/17) Weakness (12/13/17) Physical Therapy Treatment Note M2 PT-IP Current Condition Start: 12/15/17 16:26 Freq: NEEDED Status: Active Protocol: Document 12/21/17 10:40 NFW (Rec: 12/21/17 11:21 NFW [id number]) Physical Therapy Current Condition Current Condition Evaluation Date 11/05/17 Treatment Diagnosis SOB, weak, RLE cellulitis, impaired activity tolerance Precautions Other Precautions falls, wound on R lower leg M3 PT-IP Subjective Start: 12/15/17 16:26 Freq: NEEDED Status: Active Protocol: Document 12/22/17 15:48 LJ (Rec: 12/22/17 16:46 LJ [id number]) Subjective Physical Therapy Visit Type Type Treatment Note Visit Start Time 15:48 Visit Stop Time 16:05 Total Visit Minutes 17 Physical Therapy Visit Comments Patient Comments Pt wishes she could walk into the shower. States she smells bad and wants to clean herself up. M4 PT-IP Mobility and Gait Start: 12/15/17 16:26 Freq: NEEDED Status: Active Protocol: Document 12/22/17 15:48 LJ (Rec: 12/22/17 16:46 LJ [id number]) PT-Bed Mobility Assessment Rolling Type of Rolling Log Rolling Sit to Supine Sit to Supine Minimal Assistance 1 Person Assistance Scooting Scooting to Edge of Bed Moderate Assistance Scooting Up and Down in Bed Moderate Assistance PT-Transfer Assessment Comments Mobility Comments Pt req'd mod assist for bed mobility. Able to move legs off side of bed but req'd assist with supine>sit with head of bed elevated. Pt able to returnlegs to bed with no assist but required mod assist for scooting to head of bed. Pt able to bridge and push with LEs to reposition. PT-Balance Assessment Sitting Balance and Reactions Static Sitting Balance Ability Fair Dynamic Sitting Balance Ability Fair M5 PT-IP Objective Assessments Start: 12/15/17 16:26 Freq: NEEDED Status: Active Protocol: Document 12/18/17 15:40 RCC (Rec: 12/18/17 16:46 RCC [id number]) Orientation Orientation/Cognition Level of Alertness Alert Gross Range of Motion Lower Extremity ROM Impairments full extension, flexion to at least 90 deg bilaterally. Strength Lower Extremity Strength Hip flexion 3/5 B Knee flexion and extension 3+/5 B Ankle not able to test M6 PT-IP Treatment Start: 12/15/17 16:26 Freq: NEEDED Status: Active Protocol: Document 12/22/17 15:48 (Rec: 12/22/17 16:46 [id number]) Physical Therapy Treatment Exercises Exercises Ankle Pumps Gluteal Sets Heel Slides Seated Knee Flexion/Extension Education Education Provided Safety Other Treatments Other Treatment Performed Sitting balance activities x 8 min with min-mod assist. Pt able to scoot toward head of bed pushing off floor with LLE . Used RUE to balance sitting on side of breath. No complaint of pain or shortness of breath. M7 PT-IP Assessment and Plan Start: 12/15/17 16:26 Freq: NEEDED Status: Active Protocol: Document 12/22/17 15:48 (Rec: 12/22/17 16:46 [id number]) PT Summary Assessment and Plan Summary Impairments Strength Balance Bed Mobility Transfers Gait Activity Tolerance Assessment Summary Pt able to provide self pericare and cleaning of UEs and face in bed. Min cues for balancing on side of bed. No complaint of shortness of breath or pain. Pt able to sit for 8 min at edge of bed with use of only RUE. Goals Bed Mobility Goal Minimal Assistance Transfer Goal Minimal Assistance Front Wheeled Walker Gait Goal Minimal Assistance Front Wheel Walker Gait Distance 50 ft Other Goals up/down 4 steps L ascending rail and Min A Days to Meet Goals 3 Frequency of Treatment Frequency Of Treatment Once a Day Treatment Plan Physical Therapy Treatment Plan Bed Mobility Training Transfer Training Gait Training Therapeutic Exercise Balance Retraining Discharge Planning Neuromuscular Re-ed Other Recommendations and Next Treatment prog. gait, transfers, bed Focus mobility Recommendations To Nursing Amount of Assist Needed 1 Person Assist Discharge Recommendations PT Discharge Recommendations SNF Rehab
[2017-12-22] MEDS: INSULIN ASPART 100 UNIT/ML INSULN PEN SUBCUT (18:13)
[2017-12-22] MEDS: INSULIN GLARGINE 100 UNIT/ML 3ML PEN 22 UNIT SUBCUT (21:28)
[2017-12-23] VITALS (10 sets, daily range): BP systolic 93–146; BP diastolic 58–78; PULSE 86–106; RESP 16–20; TEMP 36.5–36.7; O2SAT 87–98
[2017-12-23] MEDS: ALBUTEROL/IPRATROPIUM 3 ML AMPUL INH (08:10)
[2017-12-23] MEDS: DOCUSATE 100 MG CAPSULE PO ×2 (08:53→21:23)
[2017-12-23] MEDS: predniSONE 5 MG TABLET 10 MG PO ×2 (08:53→21:23)
[2017-12-23] MEDS: LISINOPRIL 5 MG TABLET PO (08:53)
[2017-12-23] MEDS: DOXYCYCLINE HYCLATE 100 MG TABLET PO ×2 (08:54→21:23)
--- NOTE | 2017-12-23 11:48 | PT.IPTN ---
Current Diagnoses Elevated white blood cell count, unspecified (12/13/17) Type 2 diabetes mellitus without complications (12/13/17) Mood disorder due to known physiological condition with depressive features (12/13/17) Chronic obstructive pulmonary disease with acute lower respiratory infection (12/13/17) Chronic obstructive pulmonary disease with (acute) exacerbation (12/13/17) Chronic obstructive pulmonary disease, unspecified (12/13/17) Cellulitis, unspecified (12/13/17) Weakness (12/13/17) Physical Therapy Treatment Note M2 PT-IP Current Condition Start: 12/15/17 16:26 Freq: NEEDED Status: Active Protocol: Document 12/21/17 10:40 NFW (Rec: 12/21/17 11:21 NFW [id number]) Physical Therapy Current Condition Current Condition Evaluation Date 11/05/17 Treatment Diagnosis SOB, weak, RLE cellulitis, impaired activity tolerance Precautions Other Precautions falls, wound on R lower leg M3 PT-IP Subjective Start: 12/15/17 16:26 Freq: NEEDED Status: Active Protocol: Document 12/23/17 11:47 GGD (Rec: 12/23/17 11:48 GGD [id number]) Subjective Physical Therapy Visit Type Type Patient Refusal Notes Pt refused any out of bed mobility. Other Recommendations and Next Treatment prog. gait, transfers, bed Focus mobility Recommendations To Nursing Amount of Assist Needed 1 Person Assist Discharge Recommendations PT Discharge Recommendations SNF Rehab
--- NOTE | 2017-12-23 13:04 | OT.IP.TRT ---
Current Diagnoses Elevated white blood cell count, unspecified (12/13/17) Type 2 diabetes mellitus without complications (12/13/17) Mood disorder due to known physiological condition with depressive features (12/13/17) Chronic obstructive pulmonary disease with acute lower respiratory infection (12/13/17) Chronic obstructive pulmonary disease with (acute) exacerbation (12/13/17) Chronic obstructive pulmonary disease, unspecified (12/13/17) Cellulitis, unspecified (12/13/17) Weakness (12/13/17) Occupational Therapy Treatment Note M2 OT-IP Current Condition Start: 12/20/17 10:58 Freq: Status: Active Protocol: Document 12/20/17 10:59 [facility] (Rec: 12/20/17 11:28 [facility] [id number]) Occupational Therapy Current Condition Current Condition Evaluation Date 12/20/17 Treatment Diagnosis SOB,weakness Diagnosis Onset Date 12/13/17 Post Operative Precautions Other Precautions falls, wound on R lower leg M3 OT- IP Subjective and Pain Start: 12/20/17 10:58 Freq: Status: Active Protocol: Document 12/23/17 09:45 [facility] (Rec: 12/23/17 13:04 [facility] [id number]) OT- Subjective Occupational Therapy Visit Type Type Patient Refusal Notes Attempt OT treatment and pt states not feeling well and does not want to get up at this time, therefore pt refusing OT treatment today.
--- NOTE | 2017-12-23 14:34 | CM.MNRNOTE ---
0800- Pt sats back up to 94%. Pulse has been up around 110-115, ordered and EKG and states that the reason her pulse may be up is because of receiving a breathing treatment. She states not to give at this time. Pt has been repositioned x3 and dressings are cdi. She is sleeping now. Insulin held this am as sugar only 93, 8u not given. Pt did eat some but this rn not wanting bs to drop. At lunch her bs was 155 and pt did not eat well. 8U at lunch not given. Pt has refused to wear o2 this am for comfort and did not want to get out of bed to let career and guidance counselor change her bedding. After refusing o2 pt stated that she just wants to go to sleep.
--- NOTE | 2017-12-23 14:56 | PM.PN.1 ---
Subjective Date Patient Seen: 12/23/17 Interval history: Cheryl has no complaints. She was noted to be hypoxic earlier but this quickly resolved. She recieved albuterol inhaler with increased heart rate. she denies shortness of breath or pain. We are still awaiting insurance authorization Exam Vital Signs (past 8 hours): - 12/23/17 08:00 12/23/17 08:10 12/23/17 09:30 Temperature 97.8 F Pulse Rate 91 H 91 H Respiratory Rate 20 20 Blood Pressure 125/76 Pulse Oximetry 87 L 87 L 87 L 12/23/17 13:00 Temperature 97.9 F Pulse Rate 106 H Respiratory Rate 20 Blood Pressure 103/58 L Pulse Oximetry 91 Fraction of Inspired Oxygen 21 Oxygen Delivery Method Room Air Oxygen Flow Rate 0 Narrative Exam Narrative: Pleasant ill appearing female Lungs: decreased breath sounds CV: Tachycardic nl Sl S2 Abd: soft/ non tender Ext: no edema Objective Labs Result Diagrams: 12/22/17 06:10 12/22/17 06:10 Assessment & Plan (1) Cellulitis: Problem details: improving, continue antibiotics Current visit: Yes Status: Acute (2) Type 2 diabetes mellitus: Problem details: continue current regimen Current visit: Yes Status: Acute (3) Mood disorder with depressive features due to general medical condition: Current visit: Yes Status: Acute (4) Acute and chronic respiratory failure: Problem details: Continue oxygen, nebulizers, antibiotics Current visit: No Status: Resolved (5) Generalized weakness: Problem details: Continue PT/ OT Current visit: No Status: Chronic (6) Tachycardia: Problem details: hold albuterol for now Current visit: Yes Status: Acute Plan: Assessment/Plan Narrative: Awaiting placement Quality VTE Deep Vein Thrombosis/Pulmonary Embolism Present on Admission: No
--- NOTE | 2017-12-23 14:58 | CM.DPC ---
DCP: continued: spoke with Amelia/[facility] this morning and again in followup now. She confirms that all information is into the insurance company and she is expecting a positive reply form them soon. She has a pvt room set for pt to accommodate the precautions. [facility] / [place]: [phone] and [facility] elementary school social worker Miya: [phone] are both waiting for confirmation of the date pt goes to [facility] and then both will followup accordingly.
--- NOTE | 2017-12-23 15:36 | PT.IPTN ---
Current Diagnoses Elevated white blood cell count, unspecified (12/13/17) Type 2 diabetes mellitus without complications (12/13/17) Mood disorder due to known physiological condition with depressive features (12/13/17) Chronic obstructive pulmonary disease with acute lower respiratory infection (12/13/17) Chronic obstructive pulmonary disease with (acute) exacerbation (12/13/17) Chronic obstructive pulmonary disease, unspecified (12/13/17) Acute and chronic respiratory failure, unspecified whether with hypoxia or hypercapnia (12/13/17) Cellulitis, unspecified (12/13/17) Tachycardia, unspecified (12/13/17) Weakness (12/13/17) Physical Therapy Treatment Note M2 PT-IP Current Condition Start: 12/15/17 16:26 Freq: NEEDED Status: Active Protocol: Document 12/21/17 10:40 NFW (Rec: 12/21/17 11:21 NFW [id number]) Physical Therapy Current Condition Current Condition Evaluation Date 11/05/17 Treatment Diagnosis SOB, weak, RLE cellulitis, impaired activity tolerance Precautions Other Precautions falls, wound on R lower leg M3 PT-IP Subjective Start: 12/15/17 16:26 Freq: NEEDED Status: Active Protocol: Document 12/23/17 15:35 GGD (Rec: 12/23/17 15:36 GGD [id number]) Subjective Physical Therapy Visit Type Type Patient Refusal Notes Pt refused bed mobility or out of bed mobility. She won't state a reason, just closed her eyes and refused to answer questions. Recommendations To Nursing Amount of Assist Needed 1 Person Assist Discharge Recommendations PT Discharge Recommendations SNF Rehab
[2017-12-23] MEDS: ACETAMINOPHEN 325 MG TABLET 650 MG PO (17:44)
[2017-12-23] MEDS: INSULIN ASPART 100 UNIT/ML INSULN PEN SUBCUT (17:46)
--- NOTE | 2017-12-23 17:46 | PC.NURSE ---
Wound Ostomy Nurse Consult Note with Wound Doctor Dr. Zoltan Song 12/20/2017 Mrs. Stokes was in bed, awake when we arrive. She does not recall how or when these abscess appeared. She has two on the medial aspect of her left lower leg. Purluent puss was oozing out of the wounds. One was open measuring aprox. 1.2cmx1.4cmx 0.4. The edges are attached and there is red granulation tissue in the base. Dr. Song checked for tunneling. We placed Aquacel AG into wound and covered with a border foam. We recommend changing this dressing every day.
[2017-12-23] MEDS: INSULIN GLARGINE 100 UNIT/ML 3ML PEN 22 UNIT SUBCUT (21:24)
[2017-12-24] VITALS (12 sets, daily range): BP systolic 79–121; BP diastolic 53–76; PULSE 76–107; RESP 17–28; TEMP 36.3–36.5; O2SAT 87–98
--- NOTE | 2017-12-24 04:57 | PC.NURSE ---
During initial assessment pt's O2 sat was 89-90% RA. LS coarse. denies SOB, RR 17, Pulse 98. Offered NC and pt said NO! 0200: O2 sat 90% RA, refused interventions 0500: O2 sat 85% RA, RR 17, apical pulse 108, BP: 96/62. I asked if she was feeling light headed or dizzy, but pt refused to answer. I offered NC and explained consequence of hypoxia, but pt still refused interventions. I asked pt if she was willing to receive RT treatments and pt reply wasno
[2017-12-24] MEDS: DOCUSATE 100 MG CAPSULE PO (10:25)
[2017-12-24] MEDS: predniSONE 5 MG TABLET 10 MG PO (10:25)
[2017-12-24] MEDS: DOXYCYCLINE HYCLATE 100 MG TABLET PO (10:25)
[2017-12-24] MEDS: SODIUM CHLORIDE 0.9% 1,000 ML 1000 ML IV (10:27)
--- NOTE | 2017-12-24 11:21 | OT.IP.TRT ---
Current Diagnoses Elevated white blood cell count, unspecified (12/13/17) Type 2 diabetes mellitus without complications (12/13/17) Mood disorder due to known physiological condition with depressive features (12/13/17) Chronic obstructive pulmonary disease with acute lower respiratory infection (12/13/17) Chronic obstructive pulmonary disease with (acute) exacerbation (12/13/17) Chronic obstructive pulmonary disease, unspecified (12/13/17) Acute and chronic respiratory failure, unspecified whether with hypoxia or hypercapnia (12/13/17) Cellulitis, unspecified (12/13/17) Tachycardia, unspecified (12/13/17) Weakness (12/13/17) Occupational Therapy Treatment Note M2 OT-IP Current Condition Start: 12/20/17 10:58 Freq: Status: Active Protocol: Document 12/20/17 10:59 [facility] (Rec: 12/20/17 11:28 [facility] [id number]) Occupational Therapy Current Condition Current Condition Evaluation Date 12/20/17 Treatment Diagnosis SOB,weakness Diagnosis Onset Date 12/13/17 Post Operative Precautions Other Precautions falls, wound on R lower leg M3 OT- IP Subjective and Pain Start: 12/20/17 10:58 Freq: Status: Active Protocol: Document 12/24/17 11:19 [facility] (Rec: 12/24/17 11:21 [facility] [id number]) OT- Subjective Occupational Therapy Visit Type Type Patient Refusal Notes Attempted OT treatment with pt , pt refusing at this time. Pt asked if she would like to continue to have OT treatment or be discharged from services . Pt states no longer wants to be seen by OT services. Therefore discharge pt
--- NOTE | 2017-12-24 11:55 | PC.NURSE ---
Pts BP down to 70s/40s and 80s/40s. Talked to and he ordered a NS 1000cc bolus and helpful to pt. Bp up to 120s/70s. Lisinopril not given this morning, secondary to pts bp being low. She continues to refuse pt/ot or oxygen. Her BS are 113, and 108. Pt has not been eating well at meals and we have been holding her insulin so that bs does not go down any lower.
--- NOTE | 2017-12-24 12:11 | PM.PN.1 ---
Subjective Date Patient Seen: 12/24/17 Time Patient Seen: 12:12 Interval history: Her blood pressure dropped as low as 79/53 today, without any particular symptoms. She has been refusing to eat and drink, drifting back into her apparent terminal depression. She had been seen earlier by Psychiatry and then at 1 point last week was doing better. Staff notes that this seems to be somewhat dependent on the personalities that take care of her. She looks very weak, makes no effort to engage and is unable to answer any questions. It is unclear whether that is deliberate or is related to her hypotension. She is currently receiving a 1 L NS IV bolus. Her discharge plans are pending approval by her insurance, [employer], to [facility] soon. Exam Vital Signs (past 8 hours): - 12/24/17 04:44 12/24/17 07:55 12/24/17 09:57 Temperature 97.6 F 97.5 F L Pulse Rate 107 H Respiratory Rate 17 28 H Blood Pressure 96/62 79/53 L 121/76 Pulse Oximetry 87 L 12/24/17 11:24 Temperature Pulse Rate Respiratory Rate Blood Pressure Pulse Oximetry 87 L Fraction of Inspired Oxygen 21 Oxygen Delivery Method Room Air Oxygen Flow Rate 0 Const General: frail appearing, ill appearing and lethargic Nutritional Appearance: not well nourished Orientation: alert, oriented to person and confused Limitations: physical limitations Resp Effort & Inspection: normal respiratory effort Auscultation: wheezes Cardio Rate: regular rate Rhythm: regular rhythm Heart Sounds: no murmurs GI Inspection: normal to inspection and no edema Palpation: soft and no hepatosplenomegaly Auscultation: normal bowel sounds Extrem General: no pedal edema Objective Labs Result Diagrams: 12/22/17 06:10 12/22/17 06:10 Assessment & Plan (1) Type 2 diabetes mellitus: Problem details: continue current regimen. It looks like this is the appropriate time to stop her insulin? Current visit: Yes Status: Acute (2) Mood disorder with depressive features due to general medical condition: Problem details: Refusing pretty much all medicines. Current visit: Yes Status: Acute (3) Acute and chronic respiratory failure: Problem details: Continue oxygen, nebulizers, doxycycline and prednisone. Current visit: No Status: Resolved (4) Generalized weakness: Problem details: Continue PT/ OT Current visit: No Status: Chronic (5) COPD (chronic obstructive pulmonary disease): Problem details: As above Qualifiers: COPD type: COPD with acute lower respiratory infection Chronic bronchitis type: Emphysema type: Qualified Code(s): J44.0 - Chronic obstructive pulmonary disease with acute lower respiratory infection Current visit: No Status: Chronic Quality VTE Deep Vein Thrombosis/Pulmonary Embolism Present on Admission: No
--- NOTE | 2017-12-24 14:05 | PT.IPTN ---
Current Diagnoses Elevated white blood cell count, unspecified (12/13/17) Type 2 diabetes mellitus without complications (12/13/17) Mood disorder due to known physiological condition with depressive features (12/13/17) Chronic obstructive pulmonary disease with acute lower respiratory infection (12/13/17) Chronic obstructive pulmonary disease with (acute) exacerbation (12/13/17) Chronic obstructive pulmonary disease, unspecified (12/13/17) Acute and chronic respiratory failure, unspecified whether with hypoxia or hypercapnia (12/13/17) Cellulitis, unspecified (12/13/17) Tachycardia, unspecified (12/13/17) Weakness (12/13/17) Physical Therapy Treatment Note M2 PT-IP Current Condition Start: 12/15/17 16:26 Freq: NEEDED Status: Active Protocol: Document 12/21/17 10:40 NFW (Rec: 12/21/17 11:21 NFW [id number]) Physical Therapy Current Condition Current Condition Evaluation Date 11/05/17 Treatment Diagnosis SOB, weak, RLE cellulitis, impaired activity tolerance Precautions Other Precautions falls, wound on R lower leg M3 PT-IP Subjective Start: 12/15/17 16:26 Freq: NEEDED Status: Active Protocol: Document 12/24/17 14:01 GGD (Rec: 12/24/17 16:05 GGD [id number]) Subjective Physical Therapy Visit Type Type Patient Refusal Notes Pt refused PT states that she is D/C and there is no point. Asked pt if she would like to continue to have PT treatments or be discharged. Pt states she no longer wants PT services, pt will be discharged from PT. M4 PT-IP Mobility and Gait Start: 12/15/17 16:26 Physical Therapy Treatment Plan Bed Mobility Training Transfer Training Gait Training Therapeutic Exercise Balance Retraining Discharge Planning Neuromuscular Re-ed Other Recommendations and Next Treatment prog. gait, transfers, bed Focus mobility Recommendations To Nursing Amount of Assist Needed 1 Person Assist Discharge Recommendations PT Discharge Recommendations SNF Rehab
--- NOTE | 2017-12-24 15:52 | CM.DPC ---
DCP: continued: Amelia/[facility] has confirmed now that insurance auth is in place for week to week review and she can take pt tomorrow so as to have the pvt room available. Medicaid application paperwork is faxed to her for the [facility] social work/dcplan team followup. Pt is updated and remains agreeable to plan. Have left a vm now for Wong to update him and encouraged him to be here in the morning to give support to pt in this process. P: FCC: tomorrow: coordinate times and etc with Amelia/[facility]. Abby/[facility] social worker health services coordinator is aware of the d/c for tomorrow and so is Yanira/[facility]/financial worker.
--- NOTE | 2017-12-24 22:45 | PC.NURSE ---
PATIENT IS REFUSING SOME MEDS AND CARE TONIGHT,HER WAS IN EARLIER,STATES SHE WOULD NOT RESPOND TO HIM OR EAT FOR HIM,AFTER TALKED TO ME FOR AWHILE, PATIENT CALLED OUT FROM HER ROOM FOR TO COME IN,HE RETURNED TO PATIENT AND TALKED WITH HER FOR SEVERAL MINUTES
[2017-12-25 00:20] VITALS: BP 119/73; PULSE 99; RESP 22; TEMP 36.6; O2SAT 96
[2017-12-25] MEDS: ACETAMINOPHEN 325 MG TABLET 650 MG PO ×2 (00:26→08:32)
--- NOTE | 2017-12-25 05:55 | PC.NURSE ---
0600 Pt awake, RLE cleansed with NS and covered with allevyn. Pt says she is hungry, she had 1 bite of vanilla pudding. call light in reach. bed alarm active.
[2017-12-25 06:00] VITALS: BP 130/72; PULSE 95; RESP 20; TEMP 36.3; O2SAT 97
[2017-12-25 08:00] VITALS: BP 112/79; PULSE 104; RESP 24; O2SAT 99
--- NOTE | 2017-12-25 08:17 | PM.PN.1 ---
Subjective Interval history: Patient complains of being dizzy. This morning when visit she was complaining of dizziness in the bed. She states that her dizziness increases when she is up. She states that she has decreased appetite and is eating not much. She also complains of slight nausea at times Exam Vital Signs (past 8 hours): - 12/25/17 00:20 12/25/17 06:00 Temperature 97.8 F 97.3 F L Pulse Rate 99 H 95 H Respiratory Rate 22 20 Blood Pressure 119/73 130/72 Pulse Oximetry 96 97 Fraction of Inspired Oxygen 21 Oxygen Delivery Method Room Air Oxygen Flow Rate 0 Narrative Exam Narrative: General: Weak chronically ill female in no acute distress HEENT: Normocephalic atraumatic extraocular movements intact pupils are equal round reactive. There was no nystagmus. Sclera were clear. Fundi were not visualized. Oropharynx was clear. Neck supple without thyromegaly bruits or jugular venous distention Cardiovascular: A regular rhythm S1-S2 was normal rhythm there are no lifts heaves rubs or murmurs. Pulmonary: Clear to auscultation on anterior exam line abdomen: Benign bowel sounds active Extremities: No clubbing edema or cyanosis Neurologic: Grossly physiologic Psychiatric: Affect was flat Objective Labs Result Diagrams: 12/22/17 06:10 12/22/17 06:10 Assessment & Plan Plan: Assessment/Plan Narrative: 1. Diabetes mellitus type 2 Point of care glucoses are acceptable. They have been 108, 110, 110, 150, 150. She is on Lantus, Humalog a.c. t.i.d. and Humalog sliding scale Her glycemic control is lessened in part related to her steroids. When they are weaning her insulin needs will be decreased 2. Depression. Appears to be an ongoing problem. Will place the patient on SSRI 3. Acute on chronic respiratory failure Acute phase has resolved. Patient is at baseline. See discussion for COPD 4. Generalized weakness Still an ongoing problem. PT OT is working with patient is anticipated that she will go to SNF for rehab 5. Acute exacerbation COPD This appears to be resolved. O2 sats are good. She is on doxycycline, Xopenex, prednisone, supplemental O2 5. Dizziness Not hypotensive since yesterday morning at 7 50 5:00 a.m.. All of her blood pressures since then have been 110 or greater systolic. Will check orthostatics. Also there been no significant problems with orthostasis Quality VTE Deep Vein Thrombosis/Pulmonary Embolism Present on Admission: No
[2017-12-25] MEDS: DOXYCYCLINE HYCLATE 100 MG TABLET PO (08:29)
[2017-12-25] MEDS: DOCUSATE 100 MG CAPSULE PO (08:29)
[2017-12-25] MEDS: ENOXAPARIN 40 MG/0.4 ML SYRINGE SUBCUT (08:30)
[2017-12-25] MEDS: predniSONE 10 MG TABLET PO (08:32)
[2017-12-25 08:47] VITALS: O2SAT 96
[2017-12-25 12:00] VITALS: BP 138/83; PULSE 101; RESP 24; TEMP 36.4; O2SAT 97
--- NOTE | 2017-12-25 12:50 | P.DS_ITS ---
History of Present Illness Chief complaint: SOB, Chest pain Discharge Providers Date of admission: 12/13/17 16:22 Date of discharge 12/25/2017 Consults: 12/13/17 16:20 Consult to Physician Routine Comment: Consulting Provider: Obie Hicks Reason for consultation: admission Has provider been notified: Yes 12/13/17 20:48 Consult to Respiratory Therapy Evaluate & Treat Comment: check fev1 Physician Instructions: Evaluate and treat 12/14/17 10:25 Consult to General Surgery Routine Comment: Consulting Provider: Primitivo Miller Reason for consultation: RLE CELLULITIS..POSSIBLE UNDERLYING ABSCESS THAT NEEDS I/D 12/15/17 13:45 Consult to Physical Therapy Evaluate & Treat Comment: Physician Instructions: Evaluate and Treat 12/18/17 13:18 Consult to Physical Therapy Evaluate & Treat Comment: Physician Instructions: Evaluate and Treat 12/19/17 08:44 Consult to Occupational Therapy Evaluate & Treat Comment: Physician Instructions: Evaluate and treat 12/19/17 12:26 Consult to Wound Care Routine Comment: Consulting Provider: [facility] Discharge provider: London Pal MD Discharge Date: 12/25/17 Summary Discharge Diagnosis: Reason for admission: weakness and shortness of breath Discharge diagnosis Acute on chronic respiratory failure Acute exacerbation of COPD Leukocytosis Chronic steroid use Diabetes mellitus type 2 Non alcoholic fatty liver disease Code status is DNR Consultations None Procedures Chest x-ray: Nil acute Culture right leg-MRSA positive; sensitive to tetracycline Sputum culture- Serratia marcescens: Resistant to cefazolin, cefalotin, cefotetan,, cefuroxime and MRSA-sensitive to tetracyclines Hospital Course: 1. Acute hypoxic respiratory failure On admission she was placed on neb treatments, steroids, supplemental O2. With this there was resolution of her acute hypoxic respiratory failure. She remains on inhalers and her chronic steroids. 2. Acute exacerbation of COPD As for 1. Above. Additionally sputum grew MRSA and Serratia marcescens. There was no evidence of pneumonia on chest x-ray was nil acute She was initially on vancomycin and ceftriaxone. During the course of her hospitalization her acute exacerbation resolved and as stated above she has been placed on inhalers and maintain on chronic oral steroids. Her antibiotics were changed from IV antibiotics to doxycycline. She has continued to remain afebrile and B without wheezes on. The wound of the right lower extremity room revealed MRSA. It was sensitive to tetracyclines. And as such she has been placed on oral tetracyclines specifically doxycycline. She will continue this at discharge for an additional 5 days. Cellulitis of the right lower extremity has essentially resolved. 4. Leukocytosis White count remains elevated. Last WBC was 14.6. It is felt that this is in part related to her chronic steroid use. 5.Chronic steroid use 6. Diabetes mellitus type 2 point of care glucose is in the prior 24 hr have been 110, 150, 150, 129, 180. Further fine tuning can be done at the facility. Non alcoholic fatty liver disease Depression The patient has been started on Prozac 10 mg daily Status at Discharge Cognitive/behavioral status at discharge: The cognitively intact Overall status at discharge: patient is not back to baseline Time Spent with Patient Greater than 30 minutes Exam Vital Signs (past 8 hours): - 12/25/17 06:00 12/25/17 08:00 12/25/17 08:47 Temperature 97.3 F L Pulse Rate 95 H 104 H Respiratory Rate 20 24 Blood Pressure 130/72 112/79 Pulse Oximetry 97 99 96 Fraction of Inspired Oxygen 21 Oxygen Delivery Method Room Air Oxygen Flow Rate 0 Narrative Exam Narrative: As exam earlier today Objective Labs Result Diagrams: 12/22/17 06:10 12/22/17 06:10 Discharge Plan Discharge Plan Transfer to: [facility] Transportation: Ambulance I certify the postop hospital half-way care is medically necessary on a continuing basis for any conditions for which he/ she received care during this hospitalization.: Yes The receiving facility has agreed to accept transfer and provide medical treatment.: Yes Discharge Med Rec/Prescriptions Prescriptions: New acetaminophen 325 mg Tablet 650 mg PO Q6HR PRN (Reason: As Needed For Fever/Mild Pain) Qty: 30 RF: 0 fluoxetine [Prozac] 10 mg Capsule 10 mg PO DAILY Qty: 30 RF: 0 insulin aspart U-100 [Novolog Flexpen U-100 Insulin] 100 unit/mL Insulin Pen 8 unit subcut AC Qty: 1 RF: 0 heparin, porcine (PF) 10 unit/mL Syringe 50 unit IV BID Qty: 200 RF: 0 heparin, porcine (PF) 10 unit/mL Syringe 50 unit IV PRN PRN (Reason: Flush) Qty: 200 RF: 0 insulin aspart U-100 [Novolog Flexpen U-100 Insulin] 100 unit/mL Insulin Pen subcut ACHS Qty: 1 RF: 0 levalbuterol tartrate [Xopenex HFA] 45 mcg/actuation Hfa Aerosol Inhaler 2 puff INH RTQ4HR PRN (Reason: Shortness Of Breath Or Wheezing) Qty: 1 RF: 0 prednisone 10 mg Tablet 10 mg PO BID Qty: 40 RF: 0 doxycycline hyclate 100 mg Tablet 100 mg PO BID Qty: 10 RF: 0 Continue lisinopril 5 mg tablet 5 mg PO DAILY RF: 0 Discontinued albuterol sulfate 2.5 MG/3 ML solution for nebulization 3 ml INH Q4HP PRN (Reason: Wheezing) RF: 0 prednisone 10 mg Tablet 15 mg PO BID RF: 0 insulin aspart U-100 [Novolog Flexpen U-100 Insulin] 100 unit/mL Insulin Pen subcut AC Qty: 1 RF: 0 insulin glargine [Lantus Solostar U-100 Insulin] 100 unit/mL (3 mL) Insulin Pen 15 unit subcut BEDTIME Qty: 1 RF: 0 Discharge Orders: Discharge (Order); Ordered 12/25/17 Ordered By: London Pal Provider Discharge Instructions Diet: Carb-consistent/Diabetic Liquid consistency: Normal/Thin Food texture: Regular Discharge Data Attending Provider: Obie Hicks Admit Date/Time: 12/13/17 16:22 Quality VTE Deep Vein Thrombosis/Pulmonary Embolism Present on Admission: No
--- NOTE | 2017-12-25 14:14 | CM.DPC ---
DCP Cont: Patient is to be discharged today. Spoke with Amelia at [facility] who confirmed that private room is ready. Went ahead and prepared BLS form for transportation, and had hospitalist sign. Also had hospitalist sign PASSR. 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 Patient continues to be on isolation precautions. P: Patient is to be discharged to [facility] today via ambulance transport. Felicia Flores RN/Director General
--- NOTE | 2017-12-25 15:26 | PC.NURSE ---
Transfer to SNF: PICC line dc'd earlier. Tele dc'd. All belongings collected and sent with patient. Transfer packet given to transport staff. Report called to Amelia at [facility]. Patient taken out by ambulance staff.
== END 2017-12-25 15:15 | DRG 190 ==
LOC: ED 15:24 → AC 16:23
PROVIDERS: Internal Medicine; Admitting Provider Internal Medicine; Emergency Provider Emergency Medicine; Visit Provider Internal Medicine
DX: J44.1 Chronic obstructive pulmonary disease with (acute) exacerbation (principal); J96.21 Acute and chronic respiratory failure with hypoxia; L03.115 Cellulitis of right lower limb; L97.211 Non-pressure chronic ulcer of right calf limited to breakdown of skin; K76.0 Fatty (change of) liver, not elsewhere classified; E11.65 Type 2 diabetes mellitus with hyperglycemia; Z79.4 Long term (current) use of insulin; B95.62 Methicillin resistant Staphylococcus aureus infection as the cause of diseases classified elsewhere; J44.0 Chronic obstructive pulmonary disease with (acute) lower respiratory infection; J20.9 Acute bronchitis, unspecified; F17.210 Nicotine dependence, cigarettes, uncomplicated; Z66 Do not resuscitate; Z79.52 Long term (current) use of systemic steroids; F06.32 Mood disorder due to known physiological condition with major depressive-like episode; D72.829 Elevated white blood cell count, unspecified
CPT/HCPCS: 36415; 36569; 36592; 36600; 71045; 77001; 80048; 80053; 80202; 81001; 82805; 82962; 83605; 83880; 84145; 84484; 85025; 87040; 87070; 87075; 87077; 87147; 87186; 87205; 93005; 93010; 94640; 94760; 96361; 96365; 96366; 96368; 97110; 97162; 97165; 97530; 99232; 99285; 99406; J1642; J1650; J1956; J2930; J3370; J7613